=== PATIENT | female | born 1935 | race Caucasian/White ===

== ENCOUNTER → 2018-03-20 11:13 | Outpatient (CLI) | payer MEDICARE, SELFPAY | PROVIDERS: PCP Family Medicine; Visit Provider Internal Medicine Cardiovascular Disease | DX: I48.0 Paroxysmal atrial fibrillation (principal); I10 Essential (primary) hypertension; Z79.899 Other long term (current) drug therapy; Z79.01 Long term (current) use of anticoagulants; E11.9 Type 2 diabetes mellitus without complications | CPT/HCPCS: 99213 ==

== ENCOUNTER → 2018-03-20 12:05 | Outpatient (CLI) | payer MEDICARE, SELFPAY ==
[2018-03-20 13:19] LABS: Anion Gap 6.5 mmol/L (3-11); BUN 10 mg/dL (7-18); CO2 32.5 mmol/L (21.0-32.0); CREATININE 0.73 mg/dL (0.55-1.02); Calcium 8.5 mg/dL (8.5-10.1); Chloride 108 mmol/L (98-107); Glucose 90 mg/dL (70-100); Magnesium 1.7 mg/dL (1.8-2.4); Potassium 4.3 mmol/L (3.5-5.1); Sodium 147 mmol/L (136-145)
== END ==
PROVIDERS: PCP Family Medicine; Visit Provider Internal Medicine Cardiovascular Disease
DX: I48.91 Unspecified atrial fibrillation (principal)
CPT/HCPCS: 36415; 80048; 83735; 99213

== ENCOUNTER → 2018-03-27 10:30 | Outpatient (CLI) | payer MEDICARE, SELFPAY | PROVIDERS: PCP Family Medicine; Visit Provider Urology | DX: N39.46 Mixed incontinence (principal); E11.9 Type 2 diabetes mellitus without complications; I10 Essential (primary) hypertension | CPT/HCPCS: 99213 ==

== ENCOUNTER 2018-03-27 11:08 | Emergency (ER) | payer MEDICARE, SELFPAY ==
[2018-03-27 11:13] VITALS: BP 169/59; PULSE 58; RESP 16; TEMP 36.6; O2SAT 98
--- NOTE | 2018-03-27 11:29 | DI.REPORT_ITS ---
SYMPTOM/DIAGNOSIS: PAIN, SWELLING, TRAUMA LEFT TIBIA AND FIBULA: Comparison is made with ankle film dated 12 February 2017. There is an old healed distal fibular fracture. Degenerative changes are seen at the ankle joint as well as the knee joint. There is soft tissue swelling. There is no evidence of acute fracture or bony erosion. IMPRESSION: Soft tissue swelling. Degenerative changes and old distal fibular fracture.
--- NOTE | 2018-03-27 12:27 | ED.GENADUL_ITS ---
Disposition Clinical Impression: Contusion of left lower leg, Hematoma of left lower extremity Disposition: HOME Instructions: Contusion in Adults (ED), Hematoma (ED) Additional Instructions: Please follow-up with your primary care physician. Return to the emergency department immediately for any worsening or new concerning symptoms. Referrals: Anabelle Domingo MD [Primary Care Provider] - Medical Decision Making - Lab Data Laboratory Tests 03/27/18 11:47 PT 19.0 H INR 2.0 - Medical Decision Making [id number]-year-old female presents with injury to her left anterior lateral lower leg. Neurovascular intact. Compartments soft. No signs of compartment syndrome. Suspect contusion and hematoma. I considered supratherapeutic INR. INR within appropriate range. X-ray of the tib-fib interpreted by radiology: Old healed fracture, no acute fracture. Patient was advised to keep her leg elevated and stay off of her leg as much as possible while healing over the next 1 week. We reviewed signs and symptoms of compartment syndrome. I advised her to follow -up with her doctor and to return should she have any worsening or new concerning symptoms. History of Present Illness - General Chief complaint: Orthopedic Stated complaint: FALL INJURY Time Seen by Provider: 03/27/18 11:26 Source: patient, RN notes reviewed Mode of arrival: ambulatory Limitations: no limitations - History of Present Illness Initial comments: 82-year-old female here with left leg injury. Patient notes she bumped her leg yesterday and has had pain and swelling left mid ant lateral leg since injury. Pain is moderate, constant, worse on palpation. No assoc numbness, tingling or weakness. - Related Data Atorvastatin Calcium 20 mg PO DAILY tab-cap 02/24/15 Dofetilide [Tikosyn] 125 mcg PO BID 02/24/15 Gabapentin 100 mg PO TID 02/24/15 Glipizide [Glipizide Xl] 2.5 mg PO DAILY 02/24/15 Losartan [Cozaar] 100 mg PO DAILY tab-cap 02/24/15 Omeprazole 20 mg PO DAILY tab-cap 02/24/15 PredniSONE [Deltasone] 5 mg PO DAILY tab-cap 02/24/15 Warfarin Sodium 5 mg PO DAILY tab-cap 02/24/15 Potassium Chloride [Klor-Con 10] 20 meq PO BID #540 tab-cap 03/01/17 Terazosin [Hytrin] 4 mg PO DAILY #180 tab-cap 07/20/17 Magnesium Lactate-Sr [Mag-Tab Sr] 252 mg PO BID #180 tab-cap 11/16/17 Metoprolol [Lopressor] 50 mg PO BID 90 Days #360 tab-cap 03/20/18 Mirabegron [Myrbetriq] 50 mg PO DAILY #90 tab-cap 03/27/18 Allergies Allergy/AdvReac Type Severity Reaction Status Date / Time codeine Allergy Mild Unverified 03/27/18 11:24 Penicillins Allergy Unknown Unverified 03/27/18 11:24 DIVINE Inhibitors AdvReac Unknown Unverified 03/27/18 11:24 Review of Systems Musculoskeletal: as per HPI Neurological: denies: weakness, numbness, paresthesias Hematological/Lymphatic: easy bruising Past Medical History - Past Medical History Medical history: AFIB, CAD, GERD, hyperlipidemia, hypertension diverticulitis Surgical history: appendectomy, cholecystectomy - Social History Alcohol use: rarely Drug use: none General Exam - General Limitations: no limitations General appearance: alert, in no apparent distress - Cardiovascular Cardiovascular Exam: Present: regular rate, normal rhythm, other (1+ DP bilateral) - Extremities Exam Extremities exam: Present: other (LLE: swelling of mid ant lateral lower leg with bruising and localized tenderness, compartment soft, no significant pain on passive flex/ext at ankle, distal sensaiton and motor intact) - Neurological Exam Neurological exam: Present: alert. Absent: motor sensory deficit (distal LLE) - Skin Skin exam: Present: warm, dry, intact Course Vital Signs - 24 hr 03/27/18 11:13 Temperature 36.6 C Pulse 58 L Respiratory 16 Rate Blood Pressure 169/59 Pulse Oximetry 98
== END 2018-03-27 12:56 | disposition home or self-care (01) ==
PROVIDERS: Emergency Provider Student in an Organized Health Care Education/Training Program; PCP Family Medicine
DX: S80.12XA Contusion of left lower leg, initial encounter (principal); W22.8XXA Striking against or struck by other objects, initial encounter; E11.9 Type 2 diabetes mellitus without complications; Z79.84 Long term (current) use of oral hypoglycemic drugs; I10 Essential (primary) hypertension
CPT/HCPCS: 73590; 99284 ×2; 36415; 99213; 85610

== ENCOUNTER → 2018-04-06 15:21 | Outpatient (CLI) | payer MEDICARE, SELFPAY ==
[2018-04-06 16:42] LABS: Anion Gap 6.8 mmol/L (3-11); BUN 19 mg/dL (7-18); CO2 28.2 mmol/L (21.0-32.0); CREATININE 0.79 mg/dL (0.55-1.02); Calcium 8.7 mg/dL (8.5-10.1); Chloride 107 mmol/L (98-107); Glucose 138 mg/dL (70-100); Potassium 4.4 mmol/L (3.5-5.1); Sodium 142 mmol/L (136-145)
== END ==
PROVIDERS: PCP Family Medicine; Visit Provider Family Medicine
DX: E83.42 Hypomagnesemia (principal); Z51.81 Encounter for therapeutic drug level monitoring
CPT/HCPCS: 36415; 80048; 83735

== ENCOUNTER → 2018-04-07 10:11 | Outpatient (CLI) | payer MEDICARE, SELFPAY | PROVIDERS: PCP Family Medicine; Visit Provider Surgery | DX: S80.12XA Contusion of left lower leg, initial encounter (principal); X58.XXXA Exposure to other specified factors, initial encounter | CPT/HCPCS: 10140; 99213 ==

== ENCOUNTER → 2018-04-14 13:38 | Outpatient (BNVA) | payer MEDICARE, SELFPAY | PROVIDERS: PCP Family Medicine; Visit Provider Surgery | DX: S80.12XA Contusion of left lower leg, initial encounter (principal); W19.XXXA Unspecified fall, initial encounter | CPT/HCPCS: 99212 ==

== ENCOUNTER → 2018-05-22 13:19 | Outpatient (BNVA) | payer MEDICARE, SELFPAY | PROVIDERS: PCP Family Medicine; Referring Provider Family Medicine; Visit Provider Surgery | DX: S81.802D Unspecified open wound, left lower leg, subsequent encounter (principal); X58.XXXD Exposure to other specified factors, subsequent encounter | CPT/HCPCS: 99212; 99213 ==

== ENCOUNTER 2018-06-24 12:39 | Outpatient (REF) | payer MEDICARE, SELFPAY ==
[2018-06-24 13:19] LABS: Anion Gap 7.2 mmol/L (3-11); BUN 20 mg/dL (7-18); CO2 30.8 mmol/L (21.0-32.0); CREATININE 0.73 mg/dL (0.55-1.02); Calcium 8.6 mg/dL (8.5-10.1); Chloride 105 mmol/L (98-107); Glucose 82 mg/dL (70-100); Magnesium 1.9 mg/dL (1.8-2.4); Sodium 143 mmol/L (136-145)
[2018-06-24 13:31] LABS: Hemoglobin A1C 6.1 % (4.5-6.2)
== END 2018-06-24 12:59 ==
LOC: NCHCN 12:39
PROVIDERS: PCP Family Medicine; Visit Provider Family Medicine
DX: E83.42 Hypomagnesemia (principal); Z79.899 Other long term (current) drug therapy; E11.9 Type 2 diabetes mellitus without complications
CPT/HCPCS: 80048; 83036; 83735

== ENCOUNTER 2018-06-29 16:28 | Outpatient (REF) | payer MEDICARE, SELFPAY ==
[2018-06-29 19:59] LABS: COMMENT (LAB VIEW ONLY) 42.75 mg/dL; Microalb ug/mg Crea 13.6 ug/mg Cr
== END 2018-06-29 16:48 ==
LOC: NCHCN 16:28
PROVIDERS: PCP Family Medicine; Visit Provider Family Medicine
DX: E11.9 Type 2 diabetes mellitus without complications (principal)
CPT/HCPCS: 82043; 82570

== ENCOUNTER → 2018-10-15 09:06 | Outpatient (BNVA) | payer MEDICARE, SELFPAY | PROVIDERS: PCP Family Medicine; Visit Provider Internal Medicine Cardiovascular Disease | DX: R69 Illness, unspecified (principal) ==

== ENCOUNTER 2018-10-15 10:02 | Outpatient (CLI) | payer MEDICARE, SELFPAY ==
[2018-10-15 11:35] LABS: Anion Gap 7.8 mmol/L (3-11); BUN 18 mg/dL (7-18); CO2 31.2 mmol/L (21.0-32.0); CREATININE 0.81 mg/dL (0.55-1.02); Calcium 8.7 mg/dL (8.5-10.1); Chloride 106 mmol/L (98-107); Glucose 97 mg/dL (70-100); Magnesium 1.9 mg/dL (1.8-2.4); Potassium 4.2 mmol/L (3.5-5.1); Sodium 145 mmol/L (136-145)
== END 2018-10-15 10:22 ==
PROVIDERS: PCP Family Medicine; Visit Provider Internal Medicine Cardiovascular Disease
DX: I48.0 Paroxysmal atrial fibrillation (principal); Z79.01 Long term (current) use of anticoagulants; G31.84 Mild cognitive impairment of uncertain or unknown etiology; I10 Essential (primary) hypertension
CPT/HCPCS: 36415; 80048; 99214; 83735; 93005; 93010

== ENCOUNTER 2018-10-15 10:03 | Outpatient (CLI) | payer MEDICARE, SELFPAY | END 2018-10-15 10:23 | PROVIDERS: PCP Family Medicine; Visit Provider Internal Medicine Cardiovascular Disease | DX: R69 Illness, unspecified (principal) | CPT/HCPCS: 99214 ==

== ENCOUNTER 2019-01-12 01:07 | Outpatient (CLI) | payer MEDICARE, SELFPAY ==
--- NOTE | 2019-01-12 15:50 | DI.DEXA_ITS ---
SYMPTOM/DIAGNOSIS: SCREENING FOR OSTEOPOROSIS IN POSTMENOPAUSAL WOMAN, Z78.0 DEXA SCAN: Routine examination. Comparison is made with 2014. Evaluation of the lateral spine shows no compression deformities. Evaluation of the left hip shows a total T score of -1.9 and a Z score of 0.4. This is consistent with osteopenia and an increased fracture risk. This compares with a total T score of -0.6 from 2014. Evaluation of the lumbar spine shows a total T score of -0.3 and a Z score of 2.5. This is within normal limits. This compares to a total T score of 0.3 fro 2014. There is no evidence of osteoporosis. IMPRESSION: No evidence of osteoporosis.
== END 2019-01-12 01:27 ==
PROVIDERS: PCP Family Medicine; Visit Provider Family Medicine
DX: M85.88 Other specified disorders of bone density and structure, other site (principal); Z78.0 Asymptomatic menopausal state
CPT/HCPCS: 77080

== ENCOUNTER 2019-01-22 10:35 | Outpatient (CLI) | payer MEDICARE, SELFPAY ==
--- NOTE | 2019-01-22 10:24 | DI.RAD_ITS ---
SYMPTOM/DIAGNOSIS: RT HIP PAIN RIGHT HIP AND AP PELVIS: Comparison 01/10/17 There is marked narrowing of the right hip joint space. There is subchondral sclerosis present. There are osteophytes seen arising from the acetabulum and femoral head. Mild joint space narrowing and periarticular spurring is seen in the left hip. The bones appear intact and normally mineralized. The soft tissues are unremarkable. IMPRESSION: Marked osteoarthritis of the right hip.
--- NOTE | 2019-01-22 10:24 | DI.RAD_ITS ---
SYMPTOM/DIAGNOSIS: F/U LT ANKLE OA LEFT ANKLE: Three views. Comparison 02/12/17 There is an old healed distal left fibular fracture. There is marked narrowing of the lateral aspect of the ankle joint with flattening of the articular surfaces and subchondral sclerosis. No acute fracture, dislocation, lytic or sclerotic lesion is seen. Extensive vascular calcifications are seen in the soft tissues. There is soft tissue swelling about the ankle. The bones appear osteopenic. IMPRESSION: Moderate osteoarthritis of the left ankle.
== END 2019-01-22 10:55 ==
PROVIDERS: PCP Family Medicine; Referring Provider Family Medicine; Visit Provider Student in an Organized Health Care Education/Training Program
DX: M19.072 Primary osteoarthritis, left ankle and foot (principal); M16.11 Unilateral primary osteoarthritis, right hip; M25.551 Pain in right hip; E11.9 Type 2 diabetes mellitus without complications
CPT/HCPCS: 99214; 73502; 73610

== ENCOUNTER → 2019-02-04 07:56 | Outpatient (BNVA) | payer MEDICARE, SELFPAY | PROVIDERS: PCP Family Medicine; Referring Provider Family Medicine; Visit Provider Student in an Organized Health Care Education/Training Program | DX: R69 Illness, unspecified (principal) ==

== ENCOUNTER 2019-02-04 09:04 | Outpatient (CLI) | payer MEDICARE, SELFPAY ==
--- NOTE | 2019-02-05 09:44 | W.PROCNOTE ---
Date of service: 02/04/19 Time of Service: 09:44 Procedure Note Date of procedure: 02/04/19 Procedure: Right Hip Injection and left ankle injection with Fluoroscopic Guidance Surgeon/Proceduralist/Physician: Lee Cruz Procedure Diagnosis: Right Hip Osteoarthritis and left ankle arthritis Procedure Indications: Ratna has had persistent pain of the RIGHT hip and groin. She has known arthritis of the right hip. Noninvasive measures have been tried. To serve as both diagnostic and therapeutic, an injection under fluoroscopy was recommended. I had discussed the risks of the procedure and the patient elected to proceed. Additionally, she continues have difficulty with her left ankle. 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 She has had success with previous ankle injections. However, the ones performed in the office have been less successful than the one performed with fluoroscopy. Therefore, I offered a fluoroscopically guided ankle injection. I reviewed the risk of the procedure and she agreed to proceed. Procedure Description: Ratna was greeted in the flouroscopy room. The correct side was identified and the consent was reviewed with the patient and signed. The patient was then placed in the supine position on the fluoroscopy table. The RIGHT hip was then prepped with Chloraprep. The anterolateral injection starting point was identiifed by bony landmarks and fluoroscopy. The skin and soft tissue in the tract of the injection was anesthetized with 1% Lidocaine. A spinal needle was then inserted deep into the hip joint at the level of the lateral femoral neck under fluoroscopic guidance. A small amount of Omnipaque solution was injected to confirm intraarticular placement. Once confirmed, the hip was injected with 6cc of 0.5% Bupivicaine and 80mg of Depo-Medrol. A bandaid was placed on the injection site. While maintaining sterility with the injection equipment and, the left ankle was prepped with ChloraPrep. The medial soft spot, medial to the anterior tibialis tendon, was identified. This was also confirmed on the fluoroscopy unit. The skin and soft tissues were injected with 1% lidocaine. Using a 1/2 inch spinal needle I then inserted this into the ankle joint medial to the tibialis anterior tendon. This was confirmed to be in good location on the x-ray. A small amount of Omnipaque dye was injected which showed collection within the ankle joint itself. I then injected 2 cc of 0.5% bupivacaine and 40 mg of Depo-Medrol with little resistance. A Band-Aid was applied. She tolerated the procedure well.
== END 2019-02-04 09:24 ==
PROVIDERS: PCP Family Medicine; Visit Provider Student in an Organized Health Care Education/Training Program
DX: M19.172 Post-traumatic osteoarthritis, left ankle and foot (principal); M16.11 Unilateral primary osteoarthritis, right hip; M25.551 Pain in right hip; M25.572 Pain in left ankle and joints of left foot
CPT/HCPCS: 20605; 20610; 77002 ×2

== ENCOUNTER → 2019-03-29 09:58 | Outpatient (BNVA) | payer MEDICARE, SELFPAY | PROVIDERS: PCP Family Medicine; Visit Provider Nurse Practitioner Gerontology | DX: N39.46 Mixed incontinence (principal) | CPT/HCPCS: 99213 ==

== ENCOUNTER 2019-04-19 11:31 | Emergency (ER) | payer MEDICARE, SELFPAY ==
[2019-04-19 11:38] VITALS: BP 142/80; PULSE 72; RESP 16; TEMP 36.5; O2SAT 98
--- NOTE | 2019-04-19 12:24 | W.ED.GENAD ---
Discharge Plan Disposition Patient Disposition: HOME Condition: Stable Discharge Details Chief Complaint: Cellulitis Clinical Impression: Abrasion of lower extremity with infection Primary Care Provider: Anabelle Domingo ED Provider: Derek Rhoades Home Meds and New Rx's Prescriptions: New cephalexin 500 mg tablet 500 mg PO QID 5 Days Qty: 20 RF: 0 No Action aspirin [Adult Aspirin Regimen] 81 mg tablet,delayed release (DR/EC) 81 mg PO DAILY RF: 0 isosorbide mononitrate 60 mg tablet extended release 24 hr 60 mg PO DAILY RF: 0 furosemide 20 mg tablet 10 mg PO DAILY RF: 0 omeprazole 20 mg capsule,delayed release(DR/EC) 20 mg PO DAILY RF: 0 losartan 50 MG tablet 100 mg PO QAM RF: 0 dofetilide [Tikosyn] 125 MCG capsule 125 mcg PO BID RF: 0 glipizide 2.5 MG tablet extended release 24hr 2.5 mg PO QAM RF: 0 prednisone 2.5 MG tablet 5 mg PO QAM RF: 0 gabapentin 100 MG capsule 100 mg PO TID RF: 0 atorvastatin 10 MG tablet 20 mg PO QAM RF: 0 terazosin 2 MG capsule 4 mg PO DAILY Qty: 180 RF: 3 warfarin 2.5 mg tablet 5 mg PO DIRECTED RF: 0 Myrbetriq 50 mg tablet extended release 24 hr 50 mg PO DAILY Qty: 90 RF: 4 potassium chloride [Klor-Con 10] 10 mEq tablet extended release 20 meq PO BID Qty: 360 RF: 3 magnesium L-lactate [Magtab] 84 mg tablet extended release 252 mg PO BID Qty: 180 RF: 11 metoprolol tartrate 25 mg tablet 50 mg PO BID 90 Days Qty: 360 RF: 3 Discharge Instructions Instructions: Cellulitis (ED), Abrasion (ED) Additional Instructions: Please take your medication as prescribed and follow-up with your primary care provider for reassessment in 1 week. Return immediately to the emergency department for any new or significant worsening of symptoms or if you have any reaction to the prescribed antibiotic. While on the antibiotics it is recommended that you take a probiotic either chewable or pill, once daily 2 hours after your morning antibiotic dose. Referrals: Anabelle Domingo MD [Primary Care Provider] - 1 week Discharge Data Discharge Date/Time-TO BE ENTERED AT DEPARTURE: 04/19/19 12:59 Medical Decision Making Patient presenting to the emergency department for chief complaint of right lower extremity injury. Patient states approximately 2 weeks ago patient injured her right lateral lower leg on her walker. She had an abrasion there which stop bleeding but recently she has noticed a return of bleeding and increase in pain and discomfort but is actually keeping her up at night. Patient denies any fever chills, does state redness surrounding the wound, otherwise denies any other change in symptoms. Physical exam does show a 2 cm x 2 cm abrasion to the lateral aspect of the right lower extremity, there is surrounding erythema, no purulent drainage, some ecchymosis is noted otherwise pulses are intact with appropriate cap refill. Patient does have bilateral lower extremity 2+ pitting edema which she states is not uncommon for her. Patient denies any other symptoms. Patient does have penicillin allergy and given that wound is 2 weeks old with increase in pain discomfort and still with continued redness surrounding there is confirmed concern for slight infection. I feel this is very subtle but given that patient is diabetic I do feel that treating possible surrounding cellulitis is important. Given patient's allergies I did discuss with patient risk versus benefit of clindamycin versus Keflex and advantages and disadvantages of each. Son was also present for this conversation. Given patient's chronic diarrhea she was very concerned about possibility infectious diarrhea or side effects of clindamycin. Given that she was agreeable to using Keflex even with penicillin allergy and both her and her son state understanding to watch for any signs of allergic reaction and return immediately if these occur. Otherwise patient to follow-up with primary care provider for wound recheck in 1 week. After discussion of diagnosis and plan of care patient and son had no further needs, questions, or concerns and states clear understanding to return to the emergency department for any worsening symptoms. HPI General Mode of arrival: ambulatory. Date/Time Provider Initiated Documentation: 04/19/19 11:35. Limitations to Documentation: no limitations. Information obtained by: patient, family and RN notes reviewed. History of Present Illness 83 year old F presents to the emergency department with the chief complaint of Right leg wound, described as moderate, with intensity rated at 5. Quality is described as aching, and is localized to the right and lower extremity. Patient started experiencing this week(s) (2) Patient notes no other symptoms.. Patient did receive the following treatments prior to arrival, none Related Data Home Medications Medication Instructions Recorded Confirmed atorvastatin 20 mg PO QAM tab-cap 02/24/15 03/29/19 dofetilide [Tikosyn] 125 mcg PO BID 02/24/15 03/29/19 gabapentin 100 mg PO TID 02/24/15 03/29/19 glipizide 2.5 mg PO QAM 02/24/15 03/29/19 losartan 100 mg PO QAM tab-cap 02/24/15 03/29/19 prednisone 5 mg PO QAM tab-cap 02/24/15 03/29/19 terazosin 4 mg PO DAILY #180 tab-cap 07/20/17 03/29/19 furosemide 20 mg tablet 10 mg PO DAILY 05/22/18 03/29/19 omeprazole 20 mg capsule,delayed 20 mg PO DAILY 05/22/18 03/29/19 release warfarin 2.5 mg tablet 5 mg PO DIRECTED tab-cap 05/22/18 03/29/19 mirabegron 50 mg tablet,extended 50 mg PO DAILY #90 tab-cap 06/09/18 03/29/19 release 24 hr potassium chloride 10 mEq 20 meq PO BID #360 tab-cap 09/29/18 03/29/19 tablet,extended release magnesium L-lactate 84 mg 252 mg PO BID #180 tab-cap 12/16/18 03/29/19 tablet,extended release metoprolol tartrate 25 mg tablet 50 mg PO BID 90 Days #360 tab-cap 03/17/19 03/29/19 aspirin 81 mg tablet,delayed 81 mg PO DAILY 03/29/19 03/29/19 release isosorbide mononitrate 60 mg 60 mg PO DAILY 03/29/19 03/29/19 tablet,extended release 24 hr cephalexin 500 mg PO QID 5 Days #20 tab 04/19/19 Previous Rx's Medication Instructions Recorded terazosin 4 mg PO DAILY #180 tab-cap 07/20/17 mirabegron 50 mg tablet,extended 50 mg PO DAILY #90 tab-cap 06/09/18 release 24 hr potassium chloride 10 mEq 20 meq PO BID #360 tab-cap 09/29/18 tablet,extended release magnesium L-lactate 84 mg 252 mg PO BID #180 tab-cap 12/16/18 tablet,extended release metoprolol tartrate 25 mg tablet 50 mg PO BID 90 Days #360 tab-cap 03/17/19 cephalexin 500 mg PO QID 5 Days #20 tab 04/19/19 Allergies Allergy/AdvReac Type Severity Reaction Status Date / Time propranolol Allergy Intermediate Verified 03/29/19 10:06 codeine Allergy Mild Unverified 03/29/19 10:06 metformin Allergy Mild Verified 03/29/19 10:06 Penicillins Allergy Unknown Unverified 03/29/19 10:06 DIVINE Inhibitors AdvReac Unknown Unverified 03/29/19 10:06 General Stated Complaint: Cellulitis CAROLE: 4 Review of Systems Constitutional Denies body ache(s), Denies chills and Denies fever(s) Musculoskeletal Reports as per HPI, Denies numbness and Denies tingling Integumentary/Breasts Reports as per HPI, Reports non-healing lesions, Reports erythema and Reports skin pain Neurologic Denies numbness and Denies tingling [facility] Medical History Adenomatous colon polyp Allergic rhinitis Anticoagulated Atrial fibrillation Black stools Chronic diarrhea Chronic diarrhea (Acute) Cystocele with rectocele Deafness in left ear Diabetes mellitus Diverticulosis Esophageal stricture GERD (gastroesophageal reflux disease) H. pylori infection History of adenomatous polyp of colon (Acute) Hyperlipidemia Hypertension Lumbar back pain Meningioma Osteoarthritis (Chronic) Polymyalgia rheumatica Rectocele Right hip pain Skin cancer of nose Urinary incontinence Venous stasis Surgical History Appendectomy Cholecystectomy Colonoscopy - IV Sedation 2013- perforation Incision & Drainage, Abscess or Hematoma Social History Smoking/Tobacco Use Status: Never Alcohol Intake: current Drug use: Never Substance use type: does not use Do you feel safe at home: Yes Do you feel safe in your relationship?: Yes Exam Const General: cooperative and no acute distress Orientation: alert, awake and oriented x3 Resp Effort & Inspection: normal respiratory effort and able to speak in complete sentences Cardio Rate: regular rate Rhythm: regular rhythm Extrem General: pedal edema bilaterally (2+) Right lower extremity: lower leg Details: erythema Location: of the mid lower leg Location: laterally (With superficial abrasion that is approximately 2 cm x 2 cm), tenderness Location: other (Surrounding wound) and ecchymosis mid lower leg lateral Details: single; no deformity Course Vital Signs Temperature 36.5 C 04/19/19 11:38 Pulse 72 04/19/19 11:38 Respiratory Rate 16 04/19/19 11:38 Blood Pressure 142/80 H 04/19/19 11:38 Pulse Oximetry 98 04/19/19 11:38 Temperature 36.5 C 04/19/19 11:38 Temperature Source Tympanic 04/19/19 11:38 Pulse 72 04/19/19 11:38 Respiratory Rate 16 04/19/19 11:38 Respiratory Effort Non-Labored 04/19/19 11:38 Blood Pressure 142/80 H 04/19/19 11:38 Blood Pressure Position Sitting 04/19/19 11:38 Pulse Oximetry 98 04/19/19 11:38 Oxygen Delivery Method Room Air 04/19/19 11:38 Oxygen Flow Rate 0 04/19/19 11:38
--- NOTE | 2019-04-20 09:53 | NUR.NOTE ---
Referral faxed to [facility] Dr. Domingo.Nursing Note:
== END 2019-04-19 12:59 | disposition home or self-care (01) ==
LOC: ER 13:09
PROVIDERS: Emergency Provider Nurse Practitioner Family; PCP Family Medicine
DX: L03.115 Cellulitis of right lower limb (principal); S80.811A Abrasion, right lower leg, initial encounter; R60.0 Localized edema; W45.8XXA Other foreign body or object entering through skin, initial encounter; I10 Essential (primary) hypertension; E11.9 Type 2 diabetes mellitus without complications; Z79.01 Long term (current) use of anticoagulants
CPT/HCPCS: 99283

== ENCOUNTER 2019-04-26 16:16 | Outpatient (REF) | payer MEDICARE, SELFPAY | END 2019-04-26 16:36 | LOC: NCHCN 16:16 | PROVIDERS: PCP Family Medicine; Visit Provider Family Medicine | DX: L97.919 Non-pressure chronic ulcer of unspecified part of right lower leg with unspecified severity (principal) | CPT/HCPCS: 87077; 87070; 87186; 87205 ==

== ENCOUNTER → 2019-04-28 11:24 | Outpatient (BNVA) | payer MEDICARE, SELFPAY | PROVIDERS: PCP Family Medicine; Referring Provider Family Medicine; Visit Provider Surgery | DX: L97.919 Non-pressure chronic ulcer of unspecified part of right lower leg with unspecified severity (principal); E11.9 Type 2 diabetes mellitus without complications; Z79.84 Long term (current) use of oral hypoglycemic drugs; I10 Essential (primary) hypertension; Z79.01 Long term (current) use of anticoagulants | CPT/HCPCS: 97602; 99202; 99214 ==

== ENCOUNTER → 2019-04-30 14:18 | Outpatient (BNVA) | payer MEDICARE, SELFPAY | PROVIDERS: PCP Family Medicine; Referring Provider Family Medicine; Visit Provider Surgery | DX: L97.919 Non-pressure chronic ulcer of unspecified part of right lower leg with unspecified severity (principal); Z51.89 Encounter for other specified aftercare | CPT/HCPCS: 29580; 99212; 99213 ==

== ENCOUNTER → 2019-05-06 13:17 | Outpatient (BNVA) | payer MEDICARE, SELFPAY | PROVIDERS: PCP Family Medicine; Referring Provider Family Medicine; Visit Provider Physical Therapy Assistant | DX: L97.919 Non-pressure chronic ulcer of unspecified part of right lower leg with unspecified severity (principal); Z51.89 Encounter for other specified aftercare | CPT/HCPCS: 29580; 99213 ==

== ENCOUNTER 2019-05-10 00:48 | Outpatient (CLI) | payer MEDICARE, SELFPAY ==
--- NOTE | 2019-05-10 13:31 | DI.CT_ITS ---
EXAM: CT ABD AORTA CTA W RUNOFF CLINICAL HISTORY: non healing ulcer RLE +DM +afib. chronic steriods,. TECHNIQUE: The exam was carried out according to the usual protocol with IV contrast. COMPARISON: ABD PELVIS WITH CONTRAST from 03/22/2016 FINDINGS: There is patient motion artifact. There are small bilateral pleural effusions. The heart is enlarged. The liver, spleen, adrenal glands, and pancreas are unremarkable. The patient is status post cholecystectomy. There is no biliary ductal dilatation. The kidneys show normal and symmetric enhancement. No suspicious solid renal mass is present. There are bilateral simple renal cysts present. The urinary bladder is intact. The reproductive organs a re unremarkable as visualized. There is diverticulosis of the colon. There is no evidence of acute diverticulitis. The bowel shows no evidence of obstruction or inflammation. There is no evidence of an acute appendicitis. No significant abdominal or pelvic adenopathy, ascites, or pneumoperitoneum is present. There is atherosclerosis of the inferior aspect of the descending thoracic aorta. No aneurysmal dila tation is present. There is atherosclerosis of the abdominal aorta. No aneurysm or occlusion is present. The celiac axis is unremarkable. There is atherosclerosis seen at the origins of the superior mesenteric artery and renal arteries. N o significant stenosis or occlusion is present. There is atherosclerosis of the common iliac arteries. No significant stenosis or occlusion is prese nt. There is atherosclerosis of the internal iliac arteries. There is mild to moderate narrowing of the arteries bilaterally. The external iliac arteries show mild atherosclerosis. No significant stenosis or occlusion is prese nt. There is mild atherosclerosis of the proximal femoral arteries bilaterally. The popliteal arteries are unremarkable. The right anterior tibial artery is unremarkable. The left anterior tibial artery ends about the sina ction of the middle and distal thirds of the tibia. The left dorsalis pedis artery is reconstituted distally via the fibular artery. The posterior tibial arteries are unremarkable. The right fibula artery becomes attenuated and is not visualized inferior to the level of the right a nkle joint. The left fibula artery is unremarkable. 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
[2019-05-10 14:05] LABS: Anion Gap 6.3 mmol/L (3-11); BUN 19 mg/dL (7-18); CO2 29.7 mmol/L (21.0-32.0); CREATININE 0.85 mg/dL (0.55-1.02); Calcium 8.6 mg/dL (8.5-10.1); Chloride 108 mmol/L (98-107); Glucose 126 mg/dL (70-100); Potassium 4.1 mmol/L (3.5-5.1); Sodium 144 mmol/L (136-145)
[2019-05-10] MEDS: Omnipaque 350 MG/ML 100 ML BTL IJ (14:23)
[2019-05-10] MEDS: Omnipaque 350 MG/ML 50 ML BTL IJ (14:24)
== END 2019-05-10 01:08 ==
PROVIDERS: PCP Family Medicine; Visit Provider Surgery
DX: L97.919 Non-pressure chronic ulcer of unspecified part of right lower leg with unspecified severity (principal); E11.9 Type 2 diabetes mellitus without complications; I48.91 Unspecified atrial fibrillation; J90 Pleural effusion, not elsewhere classified; I51.7 Cardiomegaly; I70.238 Atherosclerosis of native arteries of right leg with ulceration of other part of lower leg; K57.30 Diverticulosis of large intestine without perforation or abscess without bleeding; Z79.52 Long term (current) use of systemic steroids; M16.11 Unilateral primary osteoarthritis, right hip
CPT/HCPCS: 75635; 80048; 99213; J3490; Q9967

== ENCOUNTER → 2019-05-13 12:54 | Outpatient (BNVA) | payer MEDICARE, SELFPAY | PROVIDERS: PCP Family Medicine; Referring Provider Family Medicine; Visit Provider Physical Therapy Assistant | DX: L97.919 Non-pressure chronic ulcer of unspecified part of right lower leg with unspecified severity (principal); Z51.89 Encounter for other specified aftercare | CPT/HCPCS: 29580; 99212 ==

== ENCOUNTER 2019-05-17 15:52 | Outpatient (REF) | payer MEDICARE, SELFPAY ==
[2019-05-17 19:21] LABS: COMMENT (LAB VIEW ONLY) 104.83 mg/dL; Microalb ug/mg Crea 15.5 ug/mg Cr
== END 2019-05-17 16:12 ==
LOC: NCHCO 15:52
PROVIDERS: PCP Family Medicine; Visit Provider Family Medicine
DX: E11.9 Type 2 diabetes mellitus without complications (principal)
CPT/HCPCS: 82043; 82570

== ENCOUNTER 2019-05-20 00:37 | Outpatient (CLI) | payer MEDICARE, SELFPAY ==
--- NOTE | 2019-05-20 11:50 | DI.MAMMO_ITS ---
EXAM: MAMMO SCREENING CLINICAL HISTORY: SCREENING Z12.31. TECHNIQUE: Mammograms were interpreted according to the usual protocol including computer analysis w [employer] CAD system, tomosynthesis and C-view imaging. COMPARISON: Current examination is compared with previous examinations including November 2017 FINDINGS: Breasts are heterogeneously dense with fairly symmetrical distribution of fibroglandular tissue. No d ominant mass or clumped microcalcification is identified in either breast. Current examination is com pared with previous examinations including November 2017 and there has been no gross interval change in appearance in comparison with previous studies. IMPRESSION: No specific evidence of malignancy at this time. Routine screening examinations are suggested at year ly intervals due to the family history of breast carcinoma. Category 1, breast density category C. BI-RADS Cat 1 - Negative Breast Density - Category C - Heterogeneously dense
== END 2019-05-20 00:57 ==
PROVIDERS: PCP Family Medicine; Visit Provider Family Medicine
DX: Z12.31 Encounter for screening mammogram for malignant neoplasm of breast (principal); Z80.3 Family history of malignant neoplasm of breast; L97.919 Non-pressure chronic ulcer of unspecified part of right lower leg with unspecified severity; Z51.89 Encounter for other specified aftercare
CPT/HCPCS: 29580; 77063; 77067; 99213

== ENCOUNTER → 2019-05-27 10:51 | Outpatient (BNVA) | payer MEDICARE, SELFPAY | PROVIDERS: PCP Family Medicine; Referring Provider Family Medicine; Visit Provider Physical Therapy Assistant | DX: L97.919 Non-pressure chronic ulcer of unspecified part of right lower leg with unspecified severity (principal); Z51.89 Encounter for other specified aftercare | CPT/HCPCS: 29580; 99211; 99212 ==

== ENCOUNTER → 2019-05-31 10:24 | Outpatient (BNVA) | payer MEDICARE, SELFPAY | PROVIDERS: PCP Family Medicine; Referring Provider Family Medicine; Visit Provider Nurse Practitioner Gerontology | DX: N39.46 Mixed incontinence (principal) | CPT/HCPCS: 99213 ==

== ENCOUNTER → 2019-06-04 11:26 | Outpatient (BNVA) | payer MEDICARE, SELFPAY | PROVIDERS: PCP Family Medicine; Referring Provider Family Medicine; Visit Provider Surgery | DX: L97.919 Non-pressure chronic ulcer of unspecified part of right lower leg with unspecified severity (principal); Z51.89 Encounter for other specified aftercare | CPT/HCPCS: 99212 ==

== ENCOUNTER → 2019-08-02 10:39 | Outpatient (BNVA) | payer MEDICARE, SELFPAY | PROVIDERS: PCP Family Medicine; Referring Provider Family Medicine; Visit Provider Student in an Organized Health Care Education/Training Program | DX: E11.9 Type 2 diabetes mellitus without complications (principal); I10 Essential (primary) hypertension; M16.11 Unilateral primary osteoarthritis, right hip; Z79.01 Long term (current) use of anticoagulants; I48.91 Unspecified atrial fibrillation | CPT/HCPCS: 99213 ==

== ENCOUNTER 2019-09-09 10:55 | Outpatient (CLI) | payer MEDICARE, SELFPAY ==
[2019-09-09 11:17] LABS: HCT 41.8 % (36.0-46.0); HGB 13.6 g/dL (12.0-15.5); Mean Corp. HGB Concentration 32.5 g/dL (32.0-36.0); Mean Corpuscular Hemoglobin 30.8 pg (27.0-33.0); Mean Corpuscular Volume 94.6 fL (80-95); Mean Platelet Volume 9.8 fL (8.0-11.0); Platelet Count 294 x1000/uL (130-400); RBC 4.42 m/cumm (4.00-5.20); RBC Distribution Width 12.9 % (11.7-14.6); White Blood Cell Count 9.43 k/cumm (4.4-10.8)
[2019-09-09 12:29] LABS: Anion Gap 10.2 mmol/L (3-11); BUN 16 mg/dL (7-18); CO2 26.8 mmol/L (21.0-32.0); CREATININE 0.76 mg/dL (0.55-1.02); Calcium 8.5 mg/dL (8.5-10.1); Chloride 107 mmol/L (98-107); Glucose 92 mg/dL (74-106); Potassium 4.2 mmol/L (3.5-5.1); Sodium 144 mmol/L (136-145)
== END 2019-09-09 11:15 ==
PROVIDERS: PCP Family Medicine; Visit Provider Student in an Organized Health Care Education/Training Program
DX: M25.551 Pain in right hip (principal); M16.11 Unilateral primary osteoarthritis, right hip; I25.10 Atherosclerotic heart disease of native coronary artery without angina pectoris; I48.91 Unspecified atrial fibrillation; E11.9 Type 2 diabetes mellitus without complications; K21.9 Gastro-esophageal reflux disease without esophagitis; Z01.818 Encounter for other preprocedural examination; Z01.812 Encounter for preprocedural laboratory examination
CPT/HCPCS: 36415; 80048; 85027; 86850; 86900; 86901

== ENCOUNTER 2019-09-15 05:50 | Inpatient (IN) | payer MEDICARE, SELFPAY ==
--- NOTE | 2019-09-09 16:16 | PDOC.CMPRO ---
- If Service Date Differs Date of service: 09/09/19 Time of Service: 16:17 Care Management Progress Note CM was consulted to meet with Ratna during her pre op visit for her scheduled R Hip replacement by Dr. Cruz on 09/15/2019. Ratna's son, Alex was in the room with her. Ratna lives at the [facility] on the second floor (there is an elevator). She lives alone, but her son lives nearby with his s/o Rebekah, who are both very supportive. She also has a daughter, Alexandra, who is supportive but lives in [place]. Ratna engages in several activities at the [facility], such as coffee hours, community dinners, and having many visitors. Alex and Rebekah will transport her to and from [facility]. Ratna has MCR. She has a 4WW, but may need a FWW post surgically, per PT. CM advised that the FWW cannot be filled here at [facility] through [facility], but CM will coordinate through [facility] if she doesn't have one upon admission. Ratna is not certain that she has an AD filled out, but she wants to ask her daughter, Alexandra for clarification. CM will supply a blank copy upon admission, if requested. She reported that she is interested in the Portal, but does not want to sign up at this time. CM will continue to follow post surgically.
[2019-09-15] VITALS (14 sets, daily range): BP systolic 120–193; BP diastolic 54–96; PULSE 61–93; RESP 12–18; TEMP 36.1–37.1; O2SAT 94–98
[2019-09-15] MEDS: Celecoxib 200 MG CAP 400 MG PO (06:56)
[2019-09-15] MEDS: Acetaminophen 500 MG TAB 1000 MG PO ×3 (06:56→19:30)
[2019-09-15] MEDS: Lactated Ringers 1,000 ML 80 ML IV ×2 (07:20→20:58)
[2019-09-15 07:32] LABS: INR 1.3 (0.9-1.1); Prothrombin Time 12.9 sec (9.3-11.0)
[2019-09-15] MEDS: ceFAZolin 2 GM/50 ML BAG IVPB (08:15)
--- NOTE | 2019-09-15 08:17 | NUR.NOTE ---
Nursing Note: Pt arrived and forgot yellow paper for lab. Pt. reports she is having diarrhea this AM. Nursing helped pt. changed and provided underwear and pad to help with leaking stool. Rebekah,son's girlfriend, ride for pt. went back to pt's house to retrieve the paper. Pt. unsure of her allergies and home medications. Nursing waited for Rebekah to return with med list. Nursing spoke to Elisa Powell CRNA, regarding need for PT/INR and cortisol labs, [employer] told nursing to order labs. Rebekah unsure of pt's meds, called son and handed phone to nurse to discuss home meds. Son states pt.took her last coumadin on 09/10/19. Nursing told son that pt. reports she took no morning meds today but paper from pre-op visit had the pt. taking medications this morning. Son stated, if pt states she did not take them, then the last time she took anything was yesterday. Nursing documented as such on summary. Dr. Cruz in to see ptMD aware of diarrhea, states coritsol not necessary but PT/INR is needed. Lab in to draw Pt/INR.
[2019-09-15] MEDS: Ketorolac 30 MG/ML VIAL (08:49)
[2019-09-15] MEDS: Bupivacaine 0.25% Pres-Free 30 ML VIAL (08:50)
--- NOTE | 2019-09-15 09:07 | DI.RAD_ITS ---
EXAM: XR HIP RT IN OR CLINICAL HISTORY: Right Total hip replacement. TECHNIQUE: 2D digital imaging was performed. COMPARISON: XR hip RT complete AP pelvis from 01/22/2019 FINDINGS: Fluoroscopy was utilized by Dr. Cruz during the placement of a right total hip replacement. The orthopedic hardware appears to be in good position. Please refer to the procedure report for complet e details. FLUORO TIME: 34.1 seconds
[2019-09-15] MEDS: Lactated Ringers 1,000 ML 30 ML IV (10:32)
--- NOTE | 2019-09-15 14:01 | NUR.NOTE ---
Nursing Note: Patient transferred from PACU to floor around 1115. Patient A&O x 3. HR regular, lungs clear, hypoactive bowel sounds. VSS. See worklist. Patient reports being able to see own surgery. Patient received spinal and reports normal sensation in bilateral lower extremities. Patient denies pain and is able to wiggles toes. Positive pedal and radial pulses. Dressing to right hip clean dry and intact. Ice to site noted.
--- NOTE | 2019-09-15 14:18 | PT.INIE ---
Date of service: 09/15/19 Time of Service: 12:53 PT Notes Physical Therapy Inpatient Initial Evaluation Date: 09/15/2019 Referring Doctor: Lee Cruz M.D. PT Orders: PT CONSULT: s/p ortho surgery. s/p R Anterior DEJON Precautions: Fall. Standard. Activity as tolerated. Patient Profile/Admitting Diagnosis: Pt is an 84-year-old female with a history of severe right hip arthritis, presenting with status post a right anterior approach total hip arthroplasty on post-operative day 0. PMHX: Medical History Adenomatous colon polyp Allergic rhinitis Anticoagulated Atrial fibrillation Black stools Chronic diarrhea Chronic diarrhea (Acute) Cystocele with rectocele Deafness in left ear Diabetes mellitus Diverticulosis Esophageal stricture GERD (gastroesophageal reflux disease) H. pylori infection History of adenomatous polyp of colon (Acute) Hyperlipidemia Hypertension Lumbar back pain Meningioma Osteoarthritis (Chronic) Polymyalgia rheumatica Rectocele Right hip pain Skin cancer of nose Traumatic wound (Acute) Ulcer of right leg (Acute) 04/26/19 referral from [facility]abel[facility] Domingo - injured on sharp piece of wheelchair 3-4 weeks ago. Seen in ER, antibx not finished due to diarrhea. Not healing. Urinary incontinence Venous stasis Surgical History Appendectomy Cholecystectomy Colonoscopy - IV Sedation 2013- perforation Incision & Drainage, Abscess or Hematoma Social History/Home Situation: Pt lives alone with her cat at [facility]. Notes there are stairs and ramp to enter, but most often uses the ramp with her walker. Equipment Owned/DME: four-wheeled walker Subjective: Pt reports that she is not experiencing any pain, but it is tender along the surgical area. She notes that she has friends that bring her to the grocery store or appointments that she needs to go. Prior to surgery she walked with a four-wheeled walker. Says that she was only able to walk around the store for a short period of time before her hip would begin to bother her. Objective: General Observation: Mepilex dressing over incision. Thromboembolic pumps on bilateral LEs. Dela Cruz catheter in place. IV line in R UE. Mental Status: alert and oriented x 4 Pain: 0/10 ROM: Right Upper Extremity: Shoulder Flexion WFL. Shoulder abduction WFL. Elbow flexion WFL. Wrist flexion WFL. Opening and closing of hand WFL. Left Upper Extremity: Shoulder Flexion WFL. Shoulder abduction WFL. Elbow flexion WFL. Wrist flexion WFL. Opening and closing of hand WFL. Right Lower Extremity: Hip flexion 85 degrees. Hip abduction WFL. Knee flexion WFL. Ankle dorsiflexion WFL. Ankle plantarflexion WFL. Left Lower Extremity: Hip flexion WFL. Hip abduction WFL. Knee flexion WFL. Ankle dorsiflexion WFL. Ankle plantarflexion WFL. Strength: Right Upper Extremity: Shoulder flexors 5/5. Shoulder abductors 5/5. Elbow flexors 5/5. Elbow extensors 5/5. Poultry Killer strong. Left Upper Extremity: Shoulder flexors 5/5. Shoulder abductors 5/5. Elbow flexors 5/5. Elbow extensors 5/5. Poultry Killer strong. Right Lower Extremity: Hip flexors 3-/5. Hip abductors 4/5. Knee flexors 3-/5. Knee extensors 4+/5. Ankle dorsiflexors 5/5. Ankle plantarflexors 5/5. Left Lower Extremity: Hip flexors 4/5 (discomfort in right hip). Hip abductors 5/5. Knee flexors 5/5. Knee extensors 5/5. Ankle dorsiflexors 5/5. Ankle plantarflexors 5/5. Sensation: Intact as to pain and pressure on bilateral lower extremities. Bed Mobility/Transfers: Rolling SBA Supine to sit Min A to LE Sit to supine Min A to LE Sit to stand CGA Stand to sit CGA Bed to chair CGA Chair to bed CGA Gait: Pt was able to ambulate 30 feet + 120 feet + 30 feet, WBAT on the right LE, using a front-wheeled walker. Step through gait pattern with asymmetrical step length and height. No complaints of increased pain in her right hip, however, did not that her left knee was bothering her. CGA provided by the PT student with wheelchair follow by PT. No complaints of SOB or dizziness. Balance: Static Sitting: Normal Dynamic Sitting: Normal Static Standing: Good Dynamic Standing: Fair Special Tests: Mobility Limitations Standardized Measure [facility] 6 clicks Basic Mobility Inpatient Short Form: Raw Score: 22 CMS Score: 21% deficit Informed Consent/Education: Patient instructed in purpose of PT consult and plan of care. Pt was instructed in home exercises to perform every hour while in the hospital including glute sets x10, quad sets x10, and ankle pumps x20. Assessment: Pt is an 84-year-old female with a history of severe right hip arthritis, presenting status post a right anterior approach total hip arthroplasty on post-operative day zero. She presents with impairment level findings and functional limitations as listed below. AM-PAC raw score of 22 with 21% deficit. Pt would continue to benefit from skilled physical therapy at this time. Patient presents with clinical signs and symptoms consistent with current/admitting diagnoses that have resulted to mobility limitations, gait instability, and generalized weakness as demonstrated by the following impairment level findings: 1. Decreased strength to R hip major muscle groups 2. Impaired standing balance 3. Impaired activity tolerance 4. Limitation of joint range of motion in R hip Impairments are contributing to the following functional limitations: 1. Dependent bed mobility skills 2. Increased dependence with transfers 3. Inability to safely ambulate without assistive device and physical assistance 4. Increase completion time for mobility ADL performance 5. Increased fall risk 6. Inability to negotiate steps alone safely Patient is assessed as a [id number] moderate complexity based on the following: History: Pt is an 84-year-old female with a history of severe right hip arthritis, presenting status post a right anterior approach total hip arthroplasty on post-operative day zero. She presents with impairment level findings and functional limitations as listed above. AM-PAC raw score of 22 with 21% deficit. Examination: Demonstrable impairment in strength, balance, and range of motion with underlying impairments and functional limitations as documented above Presentation: Evolving Decision Makin moderate complexity Goals: Goals X1 week 1. Supine-Sit independent 2. Sit-Supine independent 3. Sit-Stand independent 4. Stand-Sit independent 5. Bed-Chair independent 6. Chair-Bed independent 7. Independent gait on level surface with use of least restrictive device for at least 300 feet without report of pain nor dyspnea 8. Independent stair negotiation while holding onto bilateral rails for at least 5 steps without report of pain nor dyspnea 9. Independent with home exercise program 10. Good dynamic standing balance/tolerance Plan of Care/Treatment Plan: 1-2x/day, 7 days/week x 1 week. Plan of care has been reviewed with the PRINTED CIRCUIT BOARD PCB DESIGNER providing the service under Physical Therapy direction. Initiate Physical Therapy intervention for strengthening, bed mobility, transfers, gait, stairs, balance training, use of assistive device. DISCHARGE RECOMMENDATIONS: Discharge to home when medically cleared. Recommend a front-wheeled walker for ambulation. TREATMENT CODE/TIME: 07932 x 21 minutes beginning at 12:53 P.M. Thank you very much for this referral. Blayne Carranza, SPT Doctor of Physical Therapy Student [facility] Supervision provided by Marie Sorensen PT, DPT, CLT [facility] [place], [place]
[2019-09-15] MEDS: Gabapentin 100 MG CAP PO ×2 (14:37→19:30)
--- NOTE | 2019-09-15 14:46 | W.NUTCONSULT ---
Date of service: 09/15/19 Time of Service: 14:46 Nutritional Consult ASSESSMENT: 84 year old female admitted with right hip DJD. BMI wnl. Following diabetic diet with adequate intake. Not considered at nutritional risk at this time. MONITORING AND EVALUATION: po intake, weight, labs Time Spent in Nutritional Counseling and Treatment: 0 time spent face to face
[2019-09-15] MEDS: Hydrocortisone SOD SUC. 100 MG VIAL 25 MG IVP ×2 (16:28→23:48)
[2019-09-15] MEDS: Normal Saline Flush 10 ML SYR IV ×2 (16:29→23:57)
[2019-09-15] MEDS: ceFAZolin 1 GM/50 ML BAG IVPB ×2 (16:29→23:48)
[2019-09-15] MEDS: oxyCODONE 5 MG TAB PO ×2 (18:01→23:55)
[2019-09-15] MEDS: Terazosin 2 MG CAP PO (19:30)
[2019-09-15] MEDS: Celecoxib 100 MG CAP PO (19:30)
[2019-09-15] MEDS: Atorvastatin 10 MG TAB 20 MG PO (19:30)
[2019-09-15] MEDS: Omeprazole 20 MG CAPCR PO (21:02)
--- NOTE | 2019-09-16 05:49 | W.PM.OP ---
Date of service: 09/15/19 Time of Service: 10:50 Operative Note Operative Note DATE OF PROCEDURE: 09/15/19 PRE-OP DIAGNOSIS: Right Hip Osteoarthritis POST-OP DIAGNOSIS: same PROCEDURE: Right Anterior Total Hip Arthroplasty SURGEON: Lee Cruz CYLINDER DEVALVER: Jesica Rosario ANESTHESIA: spinal ESTIMATED BLOOD LOSS: 450 PATHOLOGY: none sent TOURNIQUET TIME: 0 COMPLICATIONS: None Patient was transported to: PACU Patient's condition: stable Implants: 1. Depuy [place] Acetabular Component, 52 mm 2. Depuy Acetabular Liner, 52 x 36 mm 3. Depuy Corail [Standard Collared] Femoral Stem, Size 12 4. Depuy [Altrx Ceramic Femoral Head], Size 36+5 mm Indications: I have seen Ratna in clinic for symptoms of hip arthritis, confirmed with radiographic findings. She has exhausted nonoperative methods and was having significant limitations in daily function and desired better function and less pain. I discussed the technical details of a hip replacement. I explained the risks of the procedure to include, but not limited to, bleeding, infection, pain, stiffness, fracture, damage to nerves and vessels, damage to muscles and tendons, loosening, instability, leg length inequality, need for repeat procedure, blood clot and cardiopulmonary demise. Despite these risks, Ratna elected to proceed. Findings: There was significant signs of arthritis throughout the hip. There are large lateral neck osteophytes and deformity of the femoral head. There also was large floor osteophytes with loose bodies. Procedure Description: Ratna was greeted in the preoperative holding area where the correct side was identified and marked. The consent was reviewed with the patient and signed. The history and physical was updated. All questions were answered. Ratna was taken back to the operating room. A spinal anesthestic was then administered. The patient was placed into the supine position on the operating room table. The patient was then positioned onto the ARCH table. Both feet were wrapped with Webrill cotton wrap along with Coban. The feet were placed in specialized boots for the ARCH table, well seated within the boot and secured. SCDs were applied. The patient was then slid down onto a peroneal post and the nonoperative leg was secured in a leg nicholson attached to the table. The operative side was placed into the ARCH table attachment and bed height and positioning was secured. A preoperative AP pelvis was obtained to serve as a reference for determining leg lengths. Prophylactic antibiotics in the form of cefazolin were administered. 1g of Tranxemic Acid was given intravenously within 30 minutes of incision. The right leg was then prepped with Chloraprep and draped in a standard fashion. A second prep with Chloraprep was performed prior to placement of a shower-curtain type drape with Iodine impregnated skin protection. A timeout to confirm correct identity, side and site, procedure, allergies, anesthesia, and medical concerns was performed. An obliquely oriented incision was made starting lateral to the ASIS and running distal over the Tensor Fascia Fifi (TFL) muscle belly toward the fibular head, approximately 10cm. The skin and soft tissue was dissected sharply, through Daniel?s fascia, and to the fascia of the TFL. With the fascia and superior border of the IT band identified, the fascia was incised with a new knife just above any perforators from the IT band. The TFL muscle belly was bluntly dissected away from the fascia and moved laterally. The fat between TFL and rectus was identified to ensure the dissection was not within the TFL. Blunt dissection created space between abductors and the capsule and retractor was placed over the lateral femoral neck. The fibers of the rectus femoris tendon were identified and these were freed from the anterior capsule. A second cobra retractor was placed around the medial femoral neck. The TFL was further retracted laterally to show the deep fascia. Careful dissection through this layer identified three main crossing vessels of the lateral femoral circumflex. These were cauterized in multiple locations and then cut without any noticeable bleeding. The TFL was further released bluntly from the deep fascia to expose anterior hip capsule and fat the Aidan orthopaedic retractor was then placed beneath the TFL and against sartorius and medial soft tissues to protect and retract the soft tissues. A T-capsulotomy was then performed starting at the superior lateral acetabulum and moving distally to the intertrochanteric ridge. These capsular flaps were tagged with a No. 1 Ethibond and elevated from within. The capsular flaps were released to the shoulder of the lateral neck and to the lesser trochanter to give excellent visualization of the proximal femur. A neck osteotomy was performed using an oscillating saw based on preoperative templates. This cut started in the shoulder and of the lateral neck and exited medially. The saw was at all times directed medially to avoid injury to the greater trochanter. 6cm of traction was applied to the leg and the osteotomy opened. The femoral head was removed with a corkscrew, making sure to protect the TFL on its exit. This was measured on the back table to determing the starting reamer size. Portions of the rectus obscuring visualization were minimally elevated off the superior acetabulum. An anterior retractor was placed over the anterior wall between capsule and labrum and attached to the Gripper retraction system. A posterior retractor was placed similarly. This provided excellent visualization. The contents of the cotyloid fossa were removed with electrocautery and the labrum was removed with a knife. There was a notable floor osteophyte. There was significant chondromalacia of the superior acetabulum. Acetabular reaming began with a 48mm reamer. This first reaming was directed anterior to posterior and medial to get down to the true floor. This was inspected and reamed until the true floor was reached. I then reamed sequentially up to a 52mm reamer where good fit was obtained. The larger reamers were oriented based on anatomical reference of the anterior and lateral redmond to ensure proper abduction and anteversion. Positioning and size was confirmed with the fluoroscopy. A 52mm Depuy [place] acetabular component was selected. The deep tissues were irrigated. The acetabular component was then impacted in a position of about 40-45 degrees of abduction and 15-20 degrees of anteversion, using the patient?s anatomy as the ultimate landmark. Fluoroscopy was used to confirm this. There was excellent project portfolio analyst of the acetabular component and the inserting handle was removed. A primary acetabular screw was placed into the ilium by drilling through one of the holes in the acetabular component. This was measured and an approrpriately sized screw was placed with excellent purchase. It was checked not to be proud. A second screw was placed in a similar fashion. The acetabular liner, Depuy 52 x 36 mm polyethylene liner, was inserted and lined up with the tines of the acetabular component. There was no soft tissue interposition. The liner was then impacted into position and confirmed to be well-seated. A portion of the delfina-articular cocktail was then injected around the acetabulum into the capsule and periosteum. This cocktail consisted of 50cc of 0.25% Bupivicaine and 20cc of Exparel, expanded to a total of 120cc. Traction was released from the femur. The leg was rotated to 120 degrees. Any remaining medial capsule was released until the lesser trochanter was easily palpable. A Hoang retractor was placed medially. The lateral capsule was further released into the shoulder to allow access to the greater trochanter. A Honag retractor was placed over the greater trochanter which allowed the trochanter to flip in front of the capsule for excellent exposure. The leg was brought down into maximal extension and 20 degrees of adduction while ensuring there was no impingement on the acetabulum. Any remnant capsule within the trochanter was released. Piriformis and obturator externis were identified and protected. There was excellent access to the proximal femur. The lateral neck remnant was removed with a rongeur. A blunt canal probe was used to identify the canal and trajectory for later broaching. A box osteotome initiated the broach course. A small curved rasp and a curved curette were used to work laterally. Broaching then began with a size 8 Corail broach. This was inserted manually around the trochanter and into the canal before mallet blows. The broach was seated to a few millimeters below the cut level based on the neck cut and the preoperative template. Sequential broaching was continued with the Kimblese pneumatic impactor until a tight fit was obtained with good rotational control of the femur. A trial standard neck was inserted along with a +5 trial head. The leg was brought out of extension and adduction and then reduced with traction and internal rotation. The leg was stable anteriorly in a position of 30 degrees of extension and 90 degrees of external rotation. Fluoroscopy was used to ensure there was no fracture and the stem was seated well. Leg lengths were checked with an AP pelvis and pelvic reference points as well as the joint point intraoperative measurement system. Once content with the desired offset and leg lengths, the leg was brought back into extension, external rotation and adduction. The periosteum and surrounding tissue was injected with remaining portion of the delfina-articular cocktail. The proximal femur was irrigated as well as the deep tissues. The Depuy Corail standard collared stem, size 12, was then manually inserted into the proximal femur making sure to control rotation. It was then malleted into position with light blows, giving breaks to allow bone expansion and decrease risk of fracture. The selected Depuy Altrx Ceramic Head, size 36+5 mm, was then placed onto the clean and dry trunnion and secured with impaction onto the tapered fit. The leg was brought back out of extension and adduction and reduced with traction and internal rotation. Stability was confirmed with no shuck at 90 degrees of external rotation and 30 degrees of extension. No impingement through range of motion arc. Final x-ray images were obtained with fluoroscopy to confirm adequate positioning and no intraoperative fracture. The deep tissues were thoroughly irrigated with Irrisept chlorexadine solution. The second dose of TXA 1g was administered intravenously. The capsule was then reapproximated with the previously placed Ethibond sutures. The TFL fascia was finally closed with a No. 2 Stratafix, barbed suture. Deep tissues were then reapproximated with 0 Vicryl and a running 2-0 Vicryl. The skin was closed with a running 4-0 Monocryl in a subcuticular fashion. This was reinforced with skin glue. A Mepilex silver dressing was applied. At the end of the case, all counts were correct. Ratna was transferred to the hospital bed without difficulty and suffering no apparent complication. Ratna has a good prognosis. Physical therapy will start today and without restrictions, weight-bearing as tolerated. Her regular dose of Coumadin will be used for DVT prophylaxis.
[2019-09-16] MEDS: Normal Saline 250 ML 500 ML IV (06:29)
[2019-09-16 07:06] LABS: HCT 32.2 % (36.0-46.0); HGB 10.3 g/dL (12.0-15.5); Mean Corpuscular Hemoglobin 30.1 pg (27.0-33.0); Mean Corpuscular Volume 94.2 fL (80-95); Mean Platelet Volume 9.9 fL (8.0-11.0); Platelet Count 229 x1000/uL (130-400); RBC 3.42 m/cumm (4.00-5.20); RBC Distribution Width 12.6 % (11.7-14.6); White Blood Cell Count 8.84 k/cumm (4.4-10.8)
[2019-09-16 07:23] LABS: BUN 19 mg/dL (7-18); CREATININE 0.73 mg/dL (0.55-1.02); Calcium 7.7 mg/dL (8.5-10.1); Chloride 108 mmol/L (98-107); Glucose 127 mg/dL (74-106); Potassium 4.2 mmol/L (3.5-5.1); Sodium 142 mmol/L (136-145)
[2019-09-16 07:34] LABS: INR 1.3 (0.9-1.1); Prothrombin Time 12.7 sec (9.3-11.0)
[2019-09-16 08:08] VITALS: BP 114/71; PULSE 89; RESP 16; TEMP 36.2; O2SAT 94
[2019-09-16] MEDS: ceFAZolin 1 GM/50 ML BAG IVPB (08:28)
[2019-09-16] MEDS: Ondansetron 4 MG/2 ML VIAL IVP (08:29)
[2019-09-16] MEDS: Hydrocortisone SOD SUC. 100 MG VIAL 25 MG IVP ×2 (08:29→16:13)
[2019-09-16] MEDS: Potassium Chloride 20 MEQ TABCR PO ×2 (09:01→20:24)
[2019-09-16] MEDS: Magnesium Lactate-SR 84 MG TABCR 252 MG PO ×2 (09:02→20:25)
[2019-09-16] MEDS: Losartan 50 MG TAB 100 MG PO (09:03)
[2019-09-16] MEDS: Celecoxib 100 MG CAP PO ×2 (09:03→20:24)
[2019-09-16] MEDS: Mirabegron 50 MG TABCR PO (09:03)
[2019-09-16] MEDS: Metoprolol CR 25 MG TABCR PO (09:04)
[2019-09-16] MEDS: Acetaminophen 500 MG TAB 1000 MG PO ×3 (09:04→20:25)
[2019-09-16] MEDS: Furosemide 20 MG TAB 10 MG PO (09:04)
[2019-09-16] MEDS: Terazosin 2 MG CAP PO ×2 (09:05→20:24)
[2019-09-16] MEDS: Gabapentin 100 MG CAP PO ×3 (09:05→20:24)
[2019-09-16] MEDS: predniSONE 5 MG TAB PO (09:06)
--- NOTE | 2019-09-16 11:40 | NT_ITS ---
Date of service: 09/16/19 Time of Service: 11:40 PT Notes Visit Reasons: RIGHT HIP DJD 09/16/2019 Held on PT this AM as pt is dizzy and sick to her stomach. Will resume in PM. Tiffany Guzman, DIRECTOR OF PHOTOGRAPHY
[2019-09-16 11:48] VITALS: BP 181/70; PULSE 71; RESP 18; TEMP 36.5; O2SAT 96
[2019-09-16 12:00] VITALS: BP 168/74
--- NOTE | 2019-09-16 13:31 | W.PM.PROGNOT ---
Date of Service Date of service: 09/16/19 Time of Service: 13:31 Assessment and Plan Assessment and plan (1) Degenerative joint disease of right hip: Status: Acute Assessment and plan: Joy is doing well. She did have some nausea this morning but this has resolved. She is nervous about going home given her ill feeling this morning. I encouraged her to work with PT and I expect that she'll be able to go home in the next 1-2 days. She should continue with PT, WBAT. If the nausea returns we can try an anti-emetic. Qualifiers: Osteoarthritis type: primary Qualified Code(s): M16.11 - Unilateral primary osteoarthritis, right hip Subjective Subjective Interval history since last seen: Joy did have some nausea and ill-feeling this morning. She was able to ambulate yesterday but not this morning, although she is standing up for a walk as I visit today. She currently feels much better and just a little uneasy. She denies fever or chills. She has no SOB or chest pain. Exam Narrative Exam Narrative: Able to stand with her weight on the right leg. Dressing c/d/i. No pain with gentle ER and IR of the right hip. Objective Objective Clinical Data: Abnormal lab results 09/16/19 09/16/19 09/16/19 Range/Units 06:40 06:40 06:40 RBC 3.42 L (4.00-5.20) m/cumm Hgb 10.3 L (12.0-15.5) g/dL Hct 32.2 L (36.0-46.0) % PT 12.7 H (9.3-11.0) sec INR 1.3 H (0.9-1.1) Chloride 108 H (98-107) mmol/L BUN 19 H (7-18) mg/dL Glucose 127 H (74-106) mg/dL Calcium 7.7 L (8.5-10.1) mg/dL Vital Signs Temperature 36.5 C 09/16/19 11:48 Temperature Source Tympanic 09/16/19 11:48 Pulse 71 09/16/19 11:48 Pulse Rhythm Regular 09/15/19 19:25 Respiratory Rate 18 09/16/19 11:48 Respiratory Effort Non-Labored 09/15/19 19:25 Respiratory Depth Normal 09/15/19 19:25 Respiratory Pattern Normal 09/15/19 06:16 Blood Pressure 168/74 H 09/16/19 12:00 Pulse Oximetry 96 09/16/19 11:48 Respiratory End-tidal CO2 35 09/15/19 10:47 Oxygen Delivery Method Room Air 09/16/19 11:48 Oxygen Flow Rate 0 09/16/19 11:48 Pain Level 0 09/16/19 11:48 Comment 09/16/19 08:08 Intake & Output 09/15/19 09/16/19 09/16/19 23:59 11:59 23:59 Intake Total 530 / 1900 1072 / 1072 Output Total 300 / 750 450 / 450 Balance 230 / 1150 622 / 622 Intake: IV 50 / 1420 1072 / 1072 Oral 480 / 480 Output: Urine 300 / 300 450 / 450 Other: Urine Color Dark Pallavi Straw Urine Appearance Clear Clear Laboratory Results WBC 8.84 k/cumm (4.4-10.8) 09/16/19 06:40 RBC 3.42 m/cumm (4.00-5.20) L 09/16/19 06:40 Hgb 10.3 g/dL (12.0-15.5) L 09/16/19 06:40 Hct 32.2 % (36.0-46.0) L 09/16/19 06:40 MCV 94.2 fL (80-95) 09/16/19 06:40 MCH 30.1 pg (27.0-33.0) 09/16/19 06:40 MCHC 32.0 g/dL (32.0-36.0) 09/16/19 06:40 RDW 12.6 % (11.7-14.6) 09/16/19 06:40 Plt Count 229 x1000/uL (130-400) 09/16/19 06:40 MPV 9.9 fL (8.0-11.0) 09/16/19 06:40 PT 12.7 sec (9.3-11.0) H 09/16/19 06:40 INR 1.3 (0.9-1.1) H 09/16/19 06:40 Sodium 142 mmol/L (136-145) 09/16/19 06:40 Potassium 4.2 mmol/L (3.5-5.1) 09/16/19 06:40 Chloride 108 mmol/L (98-107) H 09/16/19 06:40 Carbon Dioxide 26.0 mmol/L (21.0-32.0) 09/16/19 06:40 Anion Gap 8.0 mmol/L (3-11) 09/16/19 06:40 BUN 19 mg/dL (7-18) H 09/16/19 06:40 Creatinine 0.73 mg/dL (0.55-1.02) 09/16/19 06:40 Estimated GFR/1.73 m2 >= 60.00 (mL/min/1.73m2) 09/16/19 06:40 Glucose 127 mg/dL (74-106) H 09/16/19 06:40 Calcium 7.7 mg/dL (8.5-10.1) L 09/16/19 06:40
--- NOTE | 2019-09-16 14:32 | PT.INTREAT ---
Date of service: 09/16/19 Time of Service: 14:32 PT Notes Visit Reasons: RIGHT HIP DJD 09/16/2019 SUBJECTIVE: Pt stating she does have some discomfort in her hip this afternoon. Her nausea is improved. She is inquiring about a shower. OBJECTIVE: Pt seen 2x this PM. TRANSFERS Sit to stand: SBA Stand to sit: SBA Sit to supine: Min A for her LE's GAIT Device: FWW Weight bearing: AT R Assist: SBA Distance: 120' with additional 120' later in the afternoon. Deviation: Step through gait pattern. TOILETING: Indendependent THEREX: Review hourly exercises that she has on the board and she has been compliant with these. ASSESSMENT: Pt is feeling better overall this afternoon although does have some increase in hip pain. She will discuss a shower with the nursing staff. Her mobility is progressing nicely with good management with the walker with step through pattern. Her son is present during her second treatment today and he notes she is walking significantly better than she has for weeks. PLAN: Continue current POC. Work on tub shower transfers as this is her set up at home. Treatment time: 30 minutes; 12:30-12:45, 2:15-2:30 [id number] Tiffany Guzman, NADINE
--- NOTE | 2019-09-16 14:40 | CHAPLAIN ---
Ratna was resting in bed and visiting with her friend Chris when I stopped in. Ratna told me that she lives in the [address], where she has a view of [address]. She attends the [facility] [facility] [employer] and gave me permission to contact her replanter, Rev. Pérez. Rev. Pérez is returning from a trip today and will not be back in [facility] until later tonight. I'll let Ratna know this.
[2019-09-16 15:32] VITALS: BP 139/58; PULSE 60; RESP 18; TEMP 36.9; O2SAT 95
--- NOTE | 2019-09-16 18:09 | PDOC.CMIN ---
- If Service Date Differs Date of service: 09/16/19 Time of Service: 18:09 Care Management Initial Assess REASON FOR HOSPITALIZATION:: R Hip Replacement PAST MEDICAL HISTORY/PAST SURGICAL HISTORY:: Medical History . Adenomatous colon polyp. Allergic rhinitis. Anticoagulated. Atrial fibrillation. Black stools. Chronic diarrhea. Chronic diarrhea (Acute). Cystocele with rectocele. Deafness in left ear. Diabetes mellitus. Diverticulosis. Esophageal stricture. GERD (gastroesophageal reflux disease). H. pylori infection. History of adenomatous polyp of colon (Acute). Hyperlipidemia. Hypertension. Lumbar back pain. Meningioma. Osteoarthritis (Chronic). Polymyalgia rheumatica. Rectocele. Right hip pain. Skin cancer of nose. Traumatic wound (Acute). Ulcer of right leg (Acute). 04/26/19 referral from Anabelle Domingo - injured on sharp piece of wheelchair 3-4 weeks ago. Seen in ER, antibx not finished due to diarrhea. Not healing. Urinary incontinence. Venous stasis. Surgical History . Appendectomy. Cholecystectomy. Colonoscopy - IV Sedation. 2013- perforation. Incision & Drainage, Abscess or Hematoma PREVIOUS FUNCTIONAL STATUS/SOCIAL/FAMILY SUPPORTS:: Ratna lives at the [facility] in [facility] with her cat. She lives on the second floor, but there is an elevator that she can take up to her floor. She has a lot of family support, including her son and daughter in law, Alex and Rebekah, and her son Ned, and daughter Alexandra. She enjoys going to coffee hours and community dinners in her building. She is independent at baseline, but does not drive. CURRENT FUNCTIONAL STATUS:: Ratna was sitting up in her chair when CM met with her. She reported that she was feeling a lot of pain last night and this morning, and that she was also naseaus and not eating. She did report that she asked for a roast beef sandwich, which had not yet arrived. She stated that she feels that she is being well taken care of at [facility] with no complaints. CM will continue to follow. ADVANCE DIRECTIVES:: None on file. Has patient been provided with information about the portal?: Yes Did the patient sign up for the portal?: No (interested) CODE STATUS:: Full Code INSURANCE COVERAGE / FINANCIAL ISSUES:: MCR/ AARP CURRENT HOME/COMMUNITY SERVICES/EQUIPMENT:: Ratna has a 4WW. PT will evaluate if she needs a FWW, or if she can use her 4WW, which she is comfortable with. PRIMARY CARE PHYSICIAN:: Anabelle Domingo POTENTIAL DISCHARGE NEEDS:: Evaluations for further needs, follow up appointments PATIENT/FAMILY EDUCATION NEEDS:: Review discharge instructions regarding medications and activity levels, discussion of self care including ask me three ANTICIPATED BARRIERS TO DISCHARGE:: None identified at this time. TRANSPORTATION:: Ratna will transport via private vehicle, driven by family PLAN:: Anticipate Ratna will return home with no additional services once cleared by MD. She may need DME, if recommended by PT. She will follow up with Ortho, as recommended. Her family will drive her via private vehicle. CM will continue to follow.
[2019-09-16] MEDS: Atorvastatin 10 MG TAB 20 MG PO (20:24)
[2019-09-16] MEDS: Omeprazole 20 MG CAPCR PO (21:19)
[2019-09-17] MEDS: oxyCODONE 5 MG TAB PO (00:11)
[2019-09-17] MEDS: Normal Saline Flush 10 ML SYR IV ×2 (00:12→08:58)
[2019-09-17] MEDS: Hydrocortisone SOD SUC. 100 MG VIAL 25 MG IVP ×2 (00:12→08:57)
[2019-09-17 00:29] VITALS: BP 184/81; PULSE 79; RESP 18; TEMP 37.3; O2SAT 96
[2019-09-17 08:05] LABS: INR 1.2 (0.9-1.1)
--- NOTE | 2019-09-17 08:05 | DSE_ITS ---
Date of service: 09/17/19 Time of Service: 08:05 DS: Diagnosis Discharge Diagnosis (1) Degenerative joint disease of right hip: Status: Acute Discharge Plan Disposition Patient Disposition: HOME W/HOME HEALTH SERVICE Condition: Improving Discharge Details Reason For Visit: RIGHT HIP DJD Admit Date/Time: 09/15/19 05:50 Admit Provider: Lee Cruz Attending Provider: Lee Cruz Primary Care Provider: Anabelle Cason [facility] Course Hospital Course: Patient was admitted to the medical/surgical floor following the procedure. It was tolerated well without any notable medical, surgical, or anesthetic complications. Mobilization began postoperatively. The freeman catheter was removed and voiding spontaneously. Vitals were stable. Physical therapy worked with the patient and was cleared for discharge home. No acute medical issues. Home Meds and New Rx's Prescriptions: New acetaminophen 500 mg tablet 1,000 mg PO Q8H PRN (Reason: pain) Qty: 90 RF: 3 oxycodone 5 mg tablet 2.5 - 5 mg PO Q8H PRN PRNQty: 9 RF: 0 Continued furosemide 20 mg tablet 10 mg PO DAILY RF: 0 omeprazole 20 mg capsule,delayed release(DR/EC) 20 mg PO HS RF: 0 losartan 50 MG tablet 100 mg PO QAM RF: 0 dofetilide [Tikosyn] 125 MCG capsule 125 mcg PO BID RF: 0 glipizide 2.5 MG tablet extended release 24hr 2.5 mg PO QAM RF: 0 prednisone 2.5 MG tablet 5 mg PO QAM RF: 0 gabapentin 100 MG capsule 100 mg PO TID RF: 0 atorvastatin 10 MG tablet 20 mg PO QAM RF: 0 warfarin 2.5 mg tablet 2.5 mg PO DIRECTED RF: 0 Myrbetriq 50 mg tablet extended release 24 hr 50 mg PO DAILY Qty: 90 RF: 4 potassium chloride [Klor-Con 10] 10 mEq tablet extended release 20 meq PO BID Qty: 360 RF: 3 magnesium L-lactate [Magtab] 84 mg tablet extended release 252 mg PO BID Qty: 180 RF: 11 metoprolol succinate 25 mg Tablet Extended Release 24 Hr 25 mg PO DAILY RF: 0 terazosin 2 MG capsule 2 mg PO BID RF: 0 Discontinued oxycodone-acetaminophen [Percocet] 2.5-325 mg tablet 1 tab PO Q4H MDD 4 grams acetomeniphen PRN (Reason: pain) Qty: 10 RF: 0 tramadol 50 mg tablet 50 mg PO Q6H PRN (Reason: pain) Qty: 10 RF: 0 Discharge Instructions Instructions: Total Hip Discharge Instructions Additional Instructions: Dr. Cruz?s Total Hip Discharge Instructions Activity: The most important activity is to walk. You should try to take short walks a few times a day. You have no restrictions on movement or positioning, but do not try to force what you do. You will find some stiffness and weakness with hip flexion (lifting your knee). Do not try to strengthen this too early, continue to practice walking and stairs and this will come. - Outpatient physical therapy can be helpful to help return you to a normal gait and improve your flexibility and strength. This can start around 2 weeks. For some patients, it?s not necessary. Usually this is determined at the time of discharge or at the first post-operative visit. - You should wear the EARNEST hose on both legs for 2 weeks. Dressing: Keep the surgical dressing in place for at least one week. After the first week it may be removed and replace with light gauze and tape or nothing. It may get wet after 3 days but avoid soaking the dressing. If it gets wet, just lightly pat dry. It is important to always keep some gauze between skin folds, especially when you are sitting. Spend some time with the wound exposed when you are lying flat as the incision does wrinkle onto itself. Medications: - You should take Tylenol and an anti-inflammatory [Celebrex] as your primary pain control medications - You have been prescribed a stronger pain medication [Oxycodone] for breakthrough pain, take as needed as prescribed. - You have also been prescribed a stomach acid reduction agent [Pantoprozole] to help reduce stomach acid and reflux. - You will be taking [Aspirin 81mg twice a day] for DVT prevention unless instructed otherwise. - If you have constipation you should take Colace or Miralax (both [id number]). It takes most people 3-4 days to have a bowel movement. Follow-up: 2 weeks 1. Encounter Date and Reason I certify that LARS ELIAS was seen by Lee Cruz MD on 09/17/19 and that I had a [id number] encounter with this patient that meets the physician face to face encounter requirements. 2. Clinical Findings Supporting Skilled Need and Homebound Status I certify that home health services are medically necessary, include either intermittent group home and/or physical/speech therapy, and that this patient is homebound in that absences from the home require considerable and taxing effort and are infrequent or of short duration, or are attributable to the need to receive medical care. [X] (a) Attached documentation from encounter provides clinical findings supporting skilled need and homebound status (including what assistance patient requires to leave the home). The encounter with the patient was in whole, or in part, for the following medical condition, which is the primary reason for home health care: RIGHT HIP DJD [facility]: Physical Therapy:Joy would benefit from home health therapy to address her weakness and stiffness post- DEJON. She is limited in ambulation. She has no restrictions s/p DEJON but should use an assistive device. Joy also needs INR draws for Coumadin therapy treatment. Speech Therapy: Homebound: Joy is unable to leave her home unassisted. 3. Certification and Authentication I certify that I composed the above information based on my clinical judgement relating to this patient's medical condition and, if applicable, clinical findings communicated to me by the NPP or inpatient physician who performed the Home Health Referral. All further orders will be obtained through Dr. Cruz Stand Alone Forms: Nursing Discharge Form Referrals: Lee Cruz MD [ [facility] STAFF PHYSICIAN] - 10/01/19 10:30 am Activity:: Activity as Tolerated Equipment/Supplies:: Walker Diet:: Carb Counting Discharge Orders Discharge Orders: Discharge Order (Routine); Ordered 09/17/19 Ordered By: Lee Cruz DS: Summary Status at Discharge Functional status at discharge: uses cane/walker Overall status at discharge: patient is progressing back to baseline Mental Status: mental status grossly normal Speech and Movement: speech and movement normal Mood: congruent mood Affect: normal affect Exam Psych Mental Status: mental status grossly normal Speech and Movement: speech and movement normal Mood: congruent mood Affect: normal affect DS: Data Vitals/I&O Vitals and I&O: Vital Signs Temperature 37.3 C 09/17/19 00:29 Temperature Source Tympanic 09/17/19 00:29 Pulse 79 09/17/19 00:29 Pulse Rhythm Regular 09/17/19 01:39 Respiratory Rate 18 09/17/19 00:29 Respiratory Effort Non-Labored 09/17/19 01:39 Respiratory Depth Normal 09/17/19 01:39 Respiratory Pattern Normal 09/15/19 06:16 Blood Pressure 184/81 H 09/17/19 00:29 Pulse Oximetry 96 09/17/19 00:29 Respiratory End-tidal CO2 35 09/15/19 10:47 Oxygen Delivery Method Room Air 09/17/19 00:29 Oxygen Flow Rate 0 09/17/19 00:29 Pain Level 8 09/17/19 00:11 Comment 09/16/19 08:08 Intake & Output 09/16/19 09/16/19 09/17/19 11:59 23:59 11:59 Intake Total 1072 / 1312 240 / 1312 Output Total 600 / 1300 700 / 1300 700 / 700 Balance 472 / 12 -460 / 12 -700 / -700 Intake: IV 1072 / 1072 Oral 240 / 240 Output: Urine 600 / 1300 700 / 1300 700 / 700 Other: Urine Color Yellow Yellow Straw Urine Appearance Clear Clear Clear Urine Odor None Normal Voiding Methods Toilet Toilet Toilet Data Completed and Pending Labs on day of discharge: Labs from last 24 hours 09/17/19 06:35 PT Pending INR Pending [facility] Medical History Adenomatous colon polyp Allergic rhinitis Anticoagulated Atrial fibrillation f/u WITH DR. CASON 09/08/19 Black stools Chronic diarrhea Chronic diarrhea (Acute) Cystocele with rectocele Deafness in left ear Diabetes mellitus Diverticulosis Esophageal stricture GERD (gastroesophageal reflux disease) H. pylori infection History of adenomatous polyp of colon (Acute) Hyperlipidemia Hypertension Lumbar back pain Meningioma Osteoarthritis (Chronic) Polymyalgia rheumatica Rectocele Right hip pain Skin cancer of nose Traumatic wound (Acute) Ulcer of right leg (Acute) 04/26/19 referral from Anabelle Cason - injured on sharp piece of wheelchair 3-4 weeks ago. Seen in ER, antibx not finished due to diarrhea. Not healing. Urinary incontinence Venous stasis Surgical History Appendectomy Cholecystectomy Colonoscopy - IV Sedation 2013- perforation Incision & Drainage, Abscess or Hematoma R leg Social History Smoking/Tobacco Use Status: Never Alcohol Intake: current Drug use: Never Substance use type: does not use Current gender identity: female Do you feel safe at home: Yes Do you feel safe in your relationship?: Yes
[2019-09-17 08:25] VITALS: BP 150/87; PULSE 69; RESP 16; TEMP 36.7; O2SAT 94
[2019-09-17] MEDS: Magnesium Lactate-SR 84 MG TABCR 252 MG PO (08:50)
[2019-09-17] MEDS: Potassium Chloride 20 MEQ TABCR PO (08:52)
[2019-09-17] MEDS: Terazosin 2 MG CAP PO (08:52)
[2019-09-17] MEDS: predniSONE 5 MG TAB PO (08:54)
[2019-09-17] MEDS: Gabapentin 100 MG CAP PO (08:54)
[2019-09-17] MEDS: Losartan 50 MG TAB 100 MG PO (08:54)
[2019-09-17] MEDS: Metoprolol CR 25 MG TABCR PO (08:54)
[2019-09-17] MEDS: Mirabegron 50 MG TABCR PO (08:54)
[2019-09-17] MEDS: Celecoxib 100 MG CAP PO (08:54)
[2019-09-17] MEDS: Acetaminophen 500 MG TAB 1000 MG PO (08:55)
[2019-09-17] MEDS: Furosemide 20 MG TAB 10 MG PO (09:03)
--- NOTE | 2019-09-17 10:59 | PT.INTREAT ---
Date of service: 09/17/19 Time of Service: 10:59 PT Notes Visit Reasons: RIGHT HIP DJD 09/17/2019 SUBJECTIVE: Ratna stating she is going home today. She only has pain upon movement and it is a different type of pain than before surgery. She notes she will have some help at home if need be. OBJECTIVE: Seated in her chair. Agreeable to PT. TRANSFERS Sit to stand: S Stand to sit: S GAIT Device: FWW Weight bearing: AT R Assist: S Distance: 120' Deviation: Step through pattern ADL:Pt stands at sink for extended period of hira and independently washes her arms and face and brushes her teeth. Toilets independently. THEREX: Pt performs LAQ seated in her chair and we review ankle pumps, QS and glut sets. ASSESSMENT: Pt tolerates PT well this morning. She will be obtaining and FWW for home to utilize verse her 4WW. Her pain seems to be under control. She has a good understanding of her home program. PLAN: Pt to be discharged home today. See discharge summary for details. Treatment time: 23 minutes [id number], [id number] Tiffany Guzman, MOTION PICTURE SET WORKER
[2019-09-17] MEDS: Insulin Aspart 300 UNITS/3 ML PEN SC (12:04)
--- NOTE | 2019-09-17 17:30 | CMDISCH_ITS ---
- If Service Date Differs Date of service: 09/17/19 Time of Service: 17:30 LACE Index Scoring Tool - Questions: Length of Stay (in days): 2 Acuity (Admit via E.D.?): No E.D. Visits: 0 - Answers: Total Score: 2 Risk of Readmission: Low Risk Care Management Discharge Reason for Hospitalization: R Hip Replacement Discharge Plan: Joy will be discharged home today, son Alex will grain picker a FWW at local pharmacy. CM coordinated a lift assist into the home due to weather and length of ramp to get into the apartment. Home Health PT was ordered and a face to face was sent for services. No other needs at time of discharge she will follow up with as directed. Patient/Family Education Needs: Discharge education, limitations and follow up plan of care including ask me three and self management. Services Needed at Discharge: Home Health Care Services
--- NOTE | 2019-09-20 14:58 | PT.INDS ---
Date of service: 09/20/19 PT Notes Visit Reasons: RIGHT HIP DJD Physical Therapy Inpatient Discharge Summary Date: 09/20/2019 Dates of Service: 09/15/2019 through 09/17/2019 This is a clinical summary of care provided on the duration of dates listed above. No charge was made in the completion of this documentation. Referring Doctor: Lee Cruz M.D. PT Orders: PT CONSULT: s/p ortho surgery. s/p R Anterior DEJON Precautions: Fall. Standard. Activity as tolerated. Patient Profile/Admitting Diagnosis: Pt is an 84-year-old female with a history of severe right hip arthritis, presenting with status post a right anterior approach total hip arthroplasty on post-operative day 0. PMHX: Medical History Adenomatous colon polyp Allergic rhinitis Anticoagulated Atrial fibrillation Black stools Chronic diarrhea Chronic diarrhea (Acute) Cystocele with rectocele Deafness in left ear Diabetes mellitus Diverticulosis Esophageal stricture GERD (gastroesophageal reflux disease) H. pylori infection History of adenomatous polyp of colon (Acute) Hyperlipidemia Hypertension Lumbar back pain Meningioma Osteoarthritis (Chronic) Polymyalgia rheumatica Rectocele Right hip pain Skin cancer of nose Traumatic wound (Acute) Ulcer of right leg (Acute) 04/26/19 referral from Anabelle Domingo - injured on sharp piece of wheelchair 3-4 weeks ago. Seen in ER, antibx not finished due to diarrhea. Not healing. Urinary incontinence Venous stasis Surgical History Appendectomy Cholecystectomy Colonoscopy - IV Sedation 2012- perforation Incision & Drainage, Abscess or Hematoma Social History/Home Situation: Pt [facility]. Notes there are stairs and ramp to enter, but most often uses the ramp with her walker. Equipment Owned/DME: four-wheeled walker Subjective: NT Objective: General Observation: NT Pain: NT ROM: Right Upper Extremity: Shoulder Flexion WFL. Shoulder abduction WFL. Elbow flexion WFL. Wrist flexion WFL. Opening and closing of hand WFL. Left Upper Extremity: Shoulder Flexion WFL. Shoulder abduction WFL. Elbow flexion WFL. Wrist flexion WFL. Opening and closing of hand WFL. Right Lower Extremity: Hip flexion 85 degrees. Hip abduction WFL. Knee flexion WFL. Ankle dorsiflexion WFL. Ankle plantarflexion WFL. Left Lower Extremity: Hip flexion WFL. Hip abduction WFL. Knee flexion WFL. Ankle dorsiflexion WFL. Ankle plantarflexion WFL. Strength: Right Upper Extremity: Shoulder flexors 5/5. Shoulder abductors 5/5. Elbow flexors 5/5. Elbow extensors 5/5. Second Worker strong. Left Upper Extremity: Shoulder flexors 5/5. Shoulder abductors 5/5. Elbow flexors 5/5. Elbow extensors 5/5. Second Worker strong. Right Lower Extremity: Hip flexors 3-/5. Hip abductors 4/5. Knee flexors 3-/5. Knee extensors 4+/5. Ankle dorsiflexors 5/5. Ankle plantarflexors 5/5. Left Lower Extremity: Hip flexors 4/5 (discomfort in right hip). Hip abductors 5/5. Knee flexors 5/5. Knee extensors 5/5. Ankle dorsiflexors 5/5. Ankle plantarflexors 5/5. Sensation: Intact as to pain and pressure on bilateral lower extremities. Bed Mobility/Transfers: Sit to stand supervision Stand to sit supervision Bed to chair supervision Chair to bed supervision Gait: Pt was able to ambulate 120 feet, WBAT on the right LE, using a front-wheeled walker. Step through gait pattern. Supervision provided by the EXTENSION WORK INSTRUCTOR. She was able to independently stand at the sink to wash up and toilet. Balance: Static Sitting: Normal Dynamic Sitting: Normal Static Standing: Good Dynamic Standing: Fair Assessment: Pt is an 84-year-old female with a history of severe right hip arthritis, that presented status post a right anterior approach total hip arthroplasty on post-operative day zero. She presented with impairment level findings and functional limitations as listed below. AM-PAC raw score of 22 with 21% deficit. She demonstrated improvements in bed mobility and transfers, as she required less assistance. Continues to demonstrate step through gait pattern with ambulation. She shows the ability to independently toilet and stand at the sink during two consecutive treatment sessions. Patient presented with clinical signs and symptoms consistent with current/admitting diagnoses that have resulted to mobility limitations, gait instability, and generalized weakness as demonstrated by the following impairment level findings: 1. Decreased strength to R hip major muscle groups 2. Impaired standing balance 3. Impaired activity tolerance 4. Limitation of joint range of motion in R hip Impairments continue to contribute to the following functional limitations: 1. Inability to safely ambulate without assistive device and physical assistance 2. Increase completion time for mobility ADL performance 3. Increased fall risk 4. Inability to negotiate steps alone safely Patient is assessed as a [id number] moderate complexity based on the following: History: Pt is an 84-year-old female with a history of severe right hip arthritis, presenting status post a right anterior approach total hip arthroplasty on post-operative day zero. She presents with impairment level findings and functional limitations as listed above. AM-PAC raw score of 22 with 21% deficit. Examination: Demonstrable impairment in strength, balance, and range of motion with underlying impairments and functional limitations as documented above Presentation: Evolving Decision Makin moderate complexity Goals: Goals X1 week 1. Supine-Sit independent -NOT MET 2. Sit-Supine independent-NOT MET 3. Sit-Stand independent -NOT MET 4. Stand-Sit independent -NOT MET 5. Bed-Chair independent -NOT MET 6. Chair-Bed independent -NOT MET 7. Independent gait on level surface with use of least restrictive device for at least 300 feet without report of pain nor dyspnea -NOT MET 8. Independent stair negotiation while holding onto bilateral rails for at least 5 steps without report of pain nor dyspnea -NOT MET 9. Independent with home exercise program -NOT MET 10. Good dynamic standing balance/tolerance -NOT MET DISCHARGE RECOMMENDATIONS: Discharge to home when medically cleared. Recommend a front-wheeled walker for ambulation. Patient will benefit from home health PT services in order to progress mobility level using least restrictive assistive ambulatory device, assess home safety, identify additional equipment needs, and establish a functional maintenance program that will increase ability of patient to remain at home. Thank you very much for this referral. Blayne Carranza, SPT Doctor of Physical Therapy Student [facility] Supervision provided by Marie Sorensen PT, DPT, CLT [facility] [place], [place]
== END 2019-09-17 12:20 | disposition home health service (06) | DRG 470 ==
LOC: PDS 05:50 → MS 11:35
PROVIDERS: Nurse Anesthetist, Certified Registered; Admitting Provider Student in an Organized Health Care Education/Training Program; PCP Family Medicine; Visit Provider Student in an Organized Health Care Education/Training Program
PROC: 0SR904A Replacement of Right Hip Joint with Ceramic on Polyethylene Synthetic Substitute, Uncemented, Open Approach (ICD-10-PCS; CPT 27130; principal; 2019-09-15 07:30)
DX: M16.11 Unilateral primary osteoarthritis, right hip (principal); Z96.641 Presence of right artificial hip joint; M25.551 Pain in right hip; Z79.01 Long term (current) use of anticoagulants; E11.9 Type 2 diabetes mellitus without complications; K21.9 Gastro-esophageal reflux disease without esophagitis; I10 Essential (primary) hypertension; E78.5 Hyperlipidemia, unspecified; R32 Unspecified urinary incontinence; R11.0 Nausea; Z79.4 Long term (current) use of insulin; Z23 Encounter for immunization
CPT/HCPCS: 27130; 36415; 80048; 85027; 97162; 97530; NC; 73501; 85610; J0690; J1100; J1720; J1885; J2001; J2405; J2704; J3010; J3490; J7512

== ENCOUNTER 2019-10-15 10:48 | Outpatient (CLI) | payer MEDICARE, SELFPAY ==
--- NOTE | 2019-10-15 10:30 | DI.RAD_ITS ---
EXAM: XR HIP RT COMPLETE AP PELVIS INDICATION: 1ST POST OP. COMPARISON: XR hip RT complete AP pelvis from 01/22/2019 XR HIP RT IN OR from 09/15/2019 TECHNIQUE: 2D digital imaging was performed. FINDINGS: A right hip prosthesis is seen. The components appear well aligned. No bony lucencies are seen. Th ere are moderate degenerative changes of left hip. There are severe degenerative changes of the lowe r lumbar spine. IMPRESSION: Stable appearance of right hip prosthesis. DATA REPOSITORY: RADIATION DOSE DELIVERED:
== END 2019-10-15 11:08 ==
PROVIDERS: PCP Family Medicine; Referring Provider Family Medicine; Visit Provider Student in an Organized Health Care Education/Training Program
DX: Z96.641 Presence of right artificial hip joint (principal); M16.12 Unilateral primary osteoarthritis, left hip; Z47.1 Aftercare following joint replacement surgery; M16.11 Unilateral primary osteoarthritis, right hip
CPT/HCPCS: 73502

== ENCOUNTER → 2019-11-26 11:21 | Outpatient (BNVA) | payer MEDICARE, SELFPAY | PROVIDERS: PCP Family Medicine; Referring Provider Family Medicine; Visit Provider Student in an Organized Health Care Education/Training Program | DX: Z47.1 Aftercare following joint replacement surgery; Z96.641 Presence of right artificial hip joint ==

== ENCOUNTER 2020-02-07 01:46 | Outpatient (CLI) | payer MEDICARE, SELFPAY ==
--- NOTE | 2020-02-07 | DI.CT_ITS ---
EXAM: CT HEAD WO/W CLINICAL HISTORY: HEADACHES, R51, HX OF MENINGIOMA RESECTION 2006. TECHNIQUE: Imaging Protocol: Axial computed tomography images with coronal and sagittal reformatted images were created and reviewed. CONTRAST MATERIAL: Intravenous: Omnipaque 350 Contrast volume:100 mL COMPARISON: CT HEAD WITHOUT CONTRAST from 04/11/2010 CT HEAD WITHOUT CONTRAST from 09/25/2012 CT HEAD WITHOUT CONTRAST from 09/25/2012 MR MRI - BRAIN W/WO CONTRAST from 09/26/2012 ECG EKG from 12/27/2015 FINDINGS: Ventricles and Extra axial spaces: Normal in size and morphology for the patient's age. Hemorrhage: None. Cerebral parenchyma: There are areas of decreased attenuation in the white matter most consistent wit h small vessel ischemic disease. There are areas of encephalomalacia involving the occipital lobes bi laterally right greater than left. No intracranial mass is identified. Enhancement: No suspicious enhancement. Warfield of Gupta: Unremarkable. Midline shift: None. Brainstem/Cerebellum: Normal. Calvarium: Normal. Visualized Paranasal sinuses/Mastoids: Clear. IMPRESSION: No acute intracranial process. No evidence of an intracranial mass or enhancing lesion. RADIATION DOSE DELIVERED: Total DLP Total DLP DATA REPOSITORY: All CT scans at this facility are submitted to the National Radiology Data Registry (NRDR) Dose Index Registry (DIR) with the [employer] (ACR). RADIATION OPTIMIZATION: All CT scans at this facility use at least one of these dose optimization te chniques: automated exposure control; mA and/or kV adjustment per patient size (includes targeted exa ms where dose is matched to clinical indication); or iterative reconstruction.
[2020-02-07 13:06] LABS: HCT 41.3 % (36.0-46.0); HGB 13.2 g/dL (12.0-15.5); Mean Corpuscular Hemoglobin 30.8 pg (27.0-33.0); Mean Corpuscular Volume 96.5 fL (80-95); Platelet Count 332 x1000/uL (130-400); RBC 4.28 m/cumm (4.00-5.20); RBC Distribution Width 13.5 % (11.7-14.6); White Blood Cell Count 8.69 k/cumm (4.4-10.8)
[2020-02-07 13:16] LABS: INR 2.8 (0.9-1.1); Prothrombin Time 27.4 sec (9.3-11.0)
[2020-02-07 13:20] LABS: ALT 27 U/L (14-59); AST 28 U/L (15-37); Albumin 3.6 g/dL (3.4-5.0); Alkaline Phosphatase 55 U/L (46-116); Anion Gap 6.4 mmol/L (3-11); BUN 17 mg/dL (7-18); Bilirubin, Total 0.8 mg/dL (0.2-1.0); CO2 29.6 mmol/L (21.0-32.0); CREATININE 0.89 mg/dL (0.55-1.02); Calcium 8.9 mg/dL (8.5-10.1); Chloride 106 mmol/L (98-107); Glucose 133 mg/dL (74-106); Potassium 4.2 mmol/L (3.5-5.1); Sodium 142 mmol/L (136-145); Total Protein 6.6 g/dL (6.4-8.2)
[2020-02-07] MEDS: Omnipaque 350 MG/ML 100 ML BTL IV (13:55)
[2020-02-07] MEDS: Normal Saline - Diluent 50 ML VIAL IV (14:27)
== END 2020-02-07 02:06 ==
PROVIDERS: PCP Family Medicine; Visit Provider Family Medicine
DX: R51 Headache (principal); I67.82 Cerebral ischemia; F19.20 Other psychoactive substance dependence, uncomplicated; I10 Essential (primary) hypertension; K52.9 Noninfective gastroenteritis and colitis, unspecified; Z01.818 Encounter for other preprocedural examination
CPT/HCPCS: 80053; 82533; 85027; 70470; 85610; J3490

== ENCOUNTER → 2020-02-09 14:22 | Outpatient (BNVA) | payer MEDICARE, SELFPAY | PROVIDERS: PCP Family Medicine; Referring Provider Family Medicine; Visit Provider Nurse Practitioner Gerontology | DX: N39.46 Mixed incontinence (principal) | CPT/HCPCS: 99213 ==

== ENCOUNTER 2020-05-15 18:35 | Outpatient (REF) | payer MEDICARE, SELFPAY ==
[2020-05-15 19:20] LABS: Magnesium 1.5 mg/dL (1.8-2.4)
== END 2020-05-15 18:55 ==
LOC: NCHCN 18:35
PROVIDERS: PCP Family Medicine; Visit Provider Family Medicine
DX: E11.9 Type 2 diabetes mellitus without complications (principal); I10 Essential (primary) hypertension; R51.9 Headache, unspecified
CPT/HCPCS: 83036; 83735

== ENCOUNTER 2020-05-29 21:21 | Emergency (ER) | payer MEDICARE, SELFPAY ==
[2020-05-29 21:23] VITALS: BP 113/77; PULSE 89; RESP 18; TEMP 36.5; O2SAT 97
--- NOTE | 2020-05-29 21:23 | W.ED.GENAD ---
Discharge Plan Disposition Patient Disposition: HOME Condition: Good Discharge Details Clinical Impression: Cat scratch Primary Care Provider: Anabelle Cason ED Provider: Wandy Marino Home Meds and New Rx's Prescriptions: Continued furosemide 20 mg tablet 10 mg PO DAILY RF: 0 omeprazole 20 mg capsule,delayed release(DR/EC) 20 mg PO HS RF: 0 Myrbetriq 50 mg tablet extended release 24 hr 50 mg PO DAILY Qty: 90 RF: 4 losartan 50 MG tablet 100 mg PO QAM RF: 0 dofetilide [Tikosyn] 125 MCG capsule 125 mcg PO BID RF: 0 glipizide 2.5 MG tablet extended release 24hr 2.5 mg PO QAM RF: 0 prednisone 2.5 MG tablet 5 mg PO QAM RF: 0 gabapentin 100 MG capsule 100 mg PO TID RF: 0 atorvastatin 10 MG tablet 20 mg PO QAM RF: 0 warfarin 2.5 mg tablet 2.5 mg PO DIRECTED RF: 0 potassium chloride [Klor-Con 10] 10 mEq tablet extended release 20 meq PO BID Qty: 360 RF: 3 magnesium L-lactate [Magtab] 84 mg tablet extended release 252 mg PO BID Qty: 180 RF: 11 metoprolol succinate 25 mg Tablet Extended Release 24 Hr 50 mg PO DAILY RF: 0 terazosin 2 MG capsule 2 mg PO BID RF: 0 acetaminophen 500 mg tablet 1,000 mg PO Q8H PRN (Reason: pain) Qty: 90 RF: 3 Discharge Instructions Instructions: Puncture Wound (ED) Additional Instructions: Please keep current dressing on for the next 24 hours. Please do not lift dressing up to look. Please follow-up with your primary care this week for evaluation. Please monitor wound for signs infection with redness, warmth, drainage, increased pain, fevers or chills. If you develop these, persistent bleeding, or other new/worsening symptoms to seek care urgently again. Referrals: Anabelle Cason MD [Primary Care Provider] - Discharge Data Discharge Date/Time-TO BE ENTERED AT DEPARTURE: 05/29/20 21:55 Medical Decision Making Patient is a pleasant 84-year-old [id number] female presents emergency complaint of bleeding from puncture wound to the dorsal right hand. Patient has a very small puncture wound from where her cat claw her yesterday. No evidence of infection. Small amount of bleeding is noted. Patient history, sounds the patient has had persistently been pulling the dressing off of the wound to check it. I believe this is likely why she continues to ooze. She did have her INR checked 2 weeks ago and it was therapeutic at 2.3. She has been fairly stable at this level for quite some time. Not feel that this needs to be repeated at this time. She does not have any excessive bruising or bleeding noted elsewhere. This in the injury and bleeding, I do not feel that she warrants to have the antibiotics and I feel that the risk outweigh the benefit. Wound was washed by nursing staff. Gelfoam was then applied as well as pressure dressing. Advised to do this on tomorrow. I encouraged she try not to look at this. Encouraged elevation. Return precautions including further bleeding or signs of infection were discussed. She will follow up with primary care. All her questions and concerns were addressed and she is in agreement with plan. HPI General Mode of arrival: ambulatory. Date/Time Provider Initiated Documentation: 05/29/20 21:23. Limitations to Documentation: no limitations. Information obtained by: patient and RN notes reviewed. HPI Narrative: Patient is a pleasant RHD 84 year old female presenting today with c/c of puncture wound to posterior right hand. States that yesterday her cat scratched her. Patients primary concern is that she has had persistent oozing from the puncture site. She is on Coumadin. Related Data Home Medications Medication Instructions Recorded Confirmed atorvastatin 20 mg PO QAM tab-cap 02/24/15 05/29/20 dofetilide [Tikosyn] 125 mcg PO BID 02/24/15 05/29/20 gabapentin 100 mg PO TID 02/24/15 05/29/20 glipizide 2.5 mg PO QAM 02/24/15 05/29/20 losartan 100 mg PO QAM tab-cap 02/24/15 05/29/20 prednisone 5 mg PO QAM tab-cap 02/24/15 05/29/20 furosemide 20 mg tablet 10 mg PO DAILY 05/22/18 05/29/20 omeprazole 20 mg capsule,delayed 20 mg PO HS 05/22/18 05/29/20 release warfarin 2.5 mg tablet 2.5 mg PO DIRECTED tab-cap 05/22/18 05/29/20 potassium chloride 10 mEq 20 meq PO BID #360 tab-cap 09/29/18 05/29/20 tablet,extended release magnesium L-lactate 84 mg 252 mg PO BID #180 tab-cap 12/16/18 05/29/20 tablet,extended release metoprolol succinate 50 mg PO DAILY 09/09/19 05/29/20 terazosin 2 mg PO BID 09/09/19 05/29/20 acetaminophen 1,000 mg PO Q8H PRN #90 tab 09/17/19 05/29/20 mirabegron 50 mg tablet,extended 50 mg PO DAILY #90 tab-cap 02/09/20 05/29/20 release 24 hr Previous Rx's Medication Instructions Recorded potassium chloride 10 mEq 20 meq PO BID #360 tab-cap 09/29/18 tablet,extended release magnesium L-lactate 84 mg 252 mg PO BID #180 tab-cap 12/16/18 tablet,extended release acetaminophen 1,000 mg PO Q8H PRN #90 tab 09/17/19 mirabegron 50 mg tablet,extended 50 mg PO DAILY #90 tab-cap 02/09/20 release 24 hr Allergies Allergy/AdvReac Type Severity Reaction Status Date / Time propranolol Allergy Intermediate Verified 05/29/20 21:31 codeine Allergy Mild Verified 05/29/20 21:31 metformin Allergy Mild Verified 05/29/20 21:31 Penicillins Allergy Unknown Verified 05/29/20 21:31 DIVINE Inhibitors AdvReac Unknown Verified 05/29/20 21:31 General CAROLE: 4 Review of Systems Constitutional Constitutional: Reports as per HPI, Denies chills and Denies fever(s) Musculoskeletal Musculoskeletal: Reports as per HPI Integumentary/Breasts Skin/Breast: Reports as per HPI Neurologic Neurologic: Reports as per HPI, Denies sensory deficit and Denies paresthesias [facility] Medical History (Updated 05/29/20 @ 21:50 by WOOD Peters) Adenomatous colon polyp Allergic rhinitis Anticoagulated Atrial fibrillation f/u WITH DR. CASON 09/08/19 Black stools Chronic diarrhea Chronic diarrhea Cystocele with rectocele Deafness in left ear Diabetes mellitus Diverticulosis Esophageal stricture GERD (gastroesophageal reflux disease) H. pylori infection History of adenomatous polyp of colon Hyperlipidemia Hypertension Lumbar back pain Meningioma Osteoarthritis Polymyalgia rheumatica Rectocele Right hip pain Skin cancer of nose Traumatic wound Ulcer of right leg 04/26/19 referral from Anabelle Jose L - injured on sharp piece of wheelchair 3-4 weeks ago. Seen in ER, antibx not finished due to diarrhea. Not healing. 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) Incision & Drainage, Abscess or Hematoma R leg Social History Smoking/Tobacco Use Status: Never Alcohol Intake: current Drug use: Never Substance use type: does not use Current gender identity: female Do you feel safe at home: Yes Do you feel safe in your relationship?: Yes Exam Const General: cooperative, healthy appearing, comfortable, no acute distress and well developed Nutritional Appearance: average body habitus and well nourished Orientation: alert and awake Resp Effort & Inspection: normal respiratory effort, able to speak in complete sentences and no respiratory distress Cardio Rate: regular rate Rhythm: regular rhythm Skin Trauma: puncture Neuro General: patient alert and patient awake Cognition: normal cognition Speech: speech normal Gait: normal gait Sensory Exam: no sensory deficits noted Extrem Hand/finger images: 1. small puncture wound. Unable to visualize except for small amount of bleeding. No arterial bleeding. No hematoma. Full ROM. No erythema, warmth, or discharge. Good capillary refill. Sensation intact. Psych Appearance: grossly normal and well kempt Mental Status: mental status grossly normal Speech and Movement: speech and movement normal
[2020-05-29] MEDS: Gelatin SPONGE 12-7 MM PKT 1 EACH TP (21:43)
[2020-05-29 21:53] VITALS: BP 113/77; PULSE 89; RESP 18; TEMP 36.5; O2SAT 97
== END 2020-05-29 21:55 | disposition home or self-care (01) ==
PROVIDERS: Emergency Provider Physician Assistant; PCP Family Medicine
DX: S61.431A Puncture wound without foreign body of right hand, initial encounter (principal); W55.03XA Scratched by cat, initial encounter; Z79.01 Long term (current) use of anticoagulants; E11.9 Type 2 diabetes mellitus without complications; Z79.84 Long term (current) use of oral hypoglycemic drugs; I10 Essential (primary) hypertension
CPT/HCPCS: 99282; 99283

== ENCOUNTER 2020-08-29 14:05 | Outpatient (REF) | payer MEDICARE, SELFPAY ==
[2020-08-29 18:50] LABS: BUN 14 mg/dL (7-18); CREATININE 0.78 mg/dL (0.55-1.02); Calcium 8.5 mg/dL (8.5-10.1); Chloride 107 mmol/L (98-107); Glucose 125 mg/dL (74-106); Magnesium 1.5 mg/dL (1.8-2.4); Sodium 141 mmol/L (136-145)
[2020-08-29 18:54] LABS: Hemoglobin A1C 6.1 % (<5.7)
== END 2020-08-29 14:25 ==
LOC: NCHCN 14:05
PROVIDERS: PCP Family Medicine; Visit Provider Family Medicine
DX: I10 Essential (primary) hypertension (principal); E83.42 Hypomagnesemia; K52.9 Noninfective gastroenteritis and colitis, unspecified; E11.9 Type 2 diabetes mellitus without complications
CPT/HCPCS: 80048; 83036; 83735

== ENCOUNTER 2020-10-21 17:52 | Inpatient (IN) | payer MEDICARE, SELFPAY ==
[2020-10-21] VITALS (49 sets, daily range): BP systolic 90–137; BP diastolic 42–90; PULSE 49–129; RESP 12–26; TEMP 36.8; O2SAT 93–97
--- NOTE | 2020-10-21 17:45 | RT.EKG_ITS ---
APPROVED REPORT Exam: Resting ECG Patient Location: E HR:101 bpm ECG Measurements Heart Rate 101 AXIS NJ 162 P 63 QRSd 82 QRS 0 QT 373 T 47 QTc 459 Conclusion Sinus rhythm...normal P axis, V-rate 60- 99 Probable left atrial enlargement...P >50mS, <-0.10mV V1 Low voltage, extremity leads...all extremity leads <0.5mV I have reviewed and interpreted ECG and agree with software generated interpretation.
--- NOTE | 2020-10-21 18:30 | DI.CT_ITS ---
EXAM: CT HEAD CERVICAL SPINE WO COMPARISON: CT HEAD WITHOUT CONTRAST from 04/11/2010 CT HEAD WITHOUT CONTRAST from 09/25/2012 MR MRI - BRAIN W/WO CONTRAST from 09/26/[address] HEAD WO/W from 02/07/2020 FINDINGS: CT examination of the cervical spine was performed without contrast administration. There is marked kyphotic deformity, possibly post-traumatic and chronic, at C3-4 level. There are se yoel degenerative changes of the cervical spine. There is radiodensity at the level of the C1 level in the spinal canal on the right which in retrospe ct appears to been present on prior cranial CT of February 07, 2020 on the inferior-most images. This is of intermediate attenuation and this probably represents a calcified lesion. This measures about 16 millimeters in diameter. This may represent prior trauma, postsurgical changes, or mass lesion. Ad ditional evaluation with MRI recommended. There is no evidence of acute cervical fracture or dislocation. Tracheolaryngeal structures appear intact. No cervical mass or adenopathy. Noncontrast cranial CT was performed. There is moderate generalized cerebral atrophy. There is a small scalp hematoma over the left pariet al region. No evidence of acute intracranial hemorrhage, mass effect, or midline shift. No calvarial fracture. The orbital and temporal bone structures appear intact. Visualized mastoid air cells and paranasal sinuses appear clear. IMPRESSION: No evidence of acute cervical spine injury. Severe degenerative changes and calcified masslike radiodensity of the right spinal canal at C1 level , MR evaluation with scanning of the brain and cervical spine recommended including without and post contrast examination. No evidence of acute intracranial injury. RADIATION DOSE DELIVERED: 1,080.98mGy.cm Total DLP 1,080.98mGy.cm Total DLP DATA REPOSITORY: All CT scans at this facility are submitted to the National Radiology Data Registry (NRDR) Dose Index Registry (DIR) with the [employer] (ACR). RADIATION OPTIMIZATION: All CT scans at this facility use at least one of these dose optimization te chniques: automated exposure control; mA and/or kV adjustment per patient size (includes targeted exa ms where dose is matched to clinical indication); or iterative reconstruction.
--- NOTE | 2020-10-21 18:30 | DI.CT_ITS ---
EXAM: CT CHEST PE ABD PELVIS W TECHNIQUE: CT examination of the chest, abdomen, and pelvis was performed with bolus infusion of 100 cc of Omnipaque 350. COMPARISON: CT CT ABD AORTA CTA W RUNOFF from 05/10/[address] THORACIC LUMBAR SPINE REC from 10/21/2020 FINDINGS: There is no evidence of a thoracic vascular injury. The lungs are clear. No pneumothorax. There are small bilateral pleural effusions and a small pericardial effusion period. No mediastinal hematoma. No adenopathy in the chest. Tracheobronchial tree appears intact. The liver, spleen, and pancreas appear normal, gallbladder has been surgically removed. Mild promine nce of intra and extrahepatic biliary ducts noted consistent with post cholecystectomy status.. Adrenals and kidneys are unremarkable except for multiple bilateral apparent renal cysts.. No eviden ce of urinary tract injury or obstruction. No abdominal or pelvic vascular injury seen. No abdominal or pelvic adenopathy. No significant abdomi nal wall hernia or hematoma. No evidence of bowel injury. Uterus is atrophic or absent. Ovaries nonvisualized. No fracture identified in the region surveyed. Right hip prosthesis noted in position. Additional bony reconstructions of thoracic and lumbar spine show no evidence of fracture. There are marked degenerative changes and a biconvex thoracolumbar scoliosis. IMPRESSION: No evidence of acute injury of the chest, abdomen, or pelvis. RADIATION DOSE DELIVERED: Total DLP Total DLP Total DLP DATA REPOSITORY: All CT scans at this facility are submitted to the National Radiology Data Registry (NRDR) Dose Index Registry (DIR) with the [employer] (ACR). RADIATION OPTIMIZATION: All CT scans at this facility use at least one of these dose optimization te chniques: automated exposure control; mA and/or kV adjustment per patient size (includes targeted exa ms where dose is matched to clinical indication); or iterative reconstruction.
--- NOTE | 2020-10-21 18:34 | ED.GENADUL_ITS ---
Discharge Plan Disposition Patient Disposition: [facility] INPATIENT Condition: Improving Discharge Details Clinical Impression: Syncope, UTI (urinary tract infection), Elevated troponin, Rhabdomyolysis Admit Date/Time: 10/21/20 22:16 Admit Provider: Ned Vasquez Attending Provider: Ned Vasquez Primary Care Provider: Anabelle Cason ED Provider: Killian Ponce Discharge Data Discharge Date/Time-TO BE ENTERED AT DEPARTURE: 10/21/20 23:40 Medical Decision Making <Natalia Choi DO - Last Filed: 10/25/20 07:51> 1810 -- 85-year-old female with a history of atrial fibrillation on warfarin, coronary artery disease, polymyalgia rheumatica, diabetes, hypertension, hyperlipidemia, GERD presents for possible syncopal episode and fall with bilateral hip pain and lower back pain. Vitals within normal limits. She is afebrile and appears nontoxic. Her main complaint is bilateral hip and midline lower back pain. Anterior chest minimally tender. Abdomen soft and tender in lower quadrants. Midline T and L- spine tenderness. She has full range of motion of her hips but with some pain on the left side. Differential diagnosis includes Covid 19 vaccine reaction, dehydration, electrolyte abnormality, arrhythmia, CVA, UTI, etc. Will place an IV, bolus IV fluids, screening labs, urinalysis, CT head, cervical spine, chest, abdomen, pelvis, T and L-spine and IV Tylenol and reassess. Labs reviewed. Normal white blood cell count. INR therapeutic at 2.8. Potassium 3.1, magnesium 1.4, will replete. Troponin indeterminate at 0.12. EKG notes less than [address] depression in V5 V6 but no STEMI. UTI noted on urinalysis. Considering patient allergy to penicillin and interaction of Levaquin with Coumadin, will treat UTI with gentamicin. CT head and cervical spine negative for acute findings. 1999 --Case endorsed to Dr. Ponce to follow-up on remainder of CT imaging and repeat troponin. If repeat troponin stable or downtrending, will admit for observation for trending troponins, IV antibiotics for UTI, fluid hydration and recheck of electrolytes. If repeat troponin uptrending, will consult [facility] cardiology for recommendations and potential transfer. Suspect that elevated troponin is likely demand ischemia in setting of UTI and possibly dehydration. Will hold on treatment for NSTEMI at this time. [id number] --able to contact patient's grandson Alin Lim who notes that patient's boyfriend found her on the ground in her apartment today. He reports she was noted to have urine and stool around her. He did not note any acute evidence of bleeding or vomitus. She was not witnessed to have a syncopal episode and apparently had an unwitnessed fall. He states at baseline she lives alone and is able to care for herself but at times has memory issues. We will add a CK level. Medical Records Medical records reviewed: Yes I reviewed the patient's medical records. Lab Data Lab results reviewed: Yes I reviewed the patient's lab results. Labs: 10/21/20 18:46 Urine - Reflex from Ua Urine Culture - Pending Laboratory Tests Range/Units 10/21/20 10/21/20 10/21/20 18:20 18:20 18:46 WBC (4.4-10.8) 10^3/uL RBC (3.93-5.22) 10^6/uL Hgb (11.2-15.7) g/dL Hct (36.0-46.0) % MCV (80-95) fL MCH (27.0-33.0) pg MCHC (32.0-36.0) % RDW (11.7-14.6) % Plt Count (130-400) 10^3/uL MPV (8.0-11.0) fL Immature Gran % Neutrophils % Lymphocytes % Monocytes % Eosinophils % Basophils % Nucleated RBC % % Absolute Neutrophils (1.2-6.7) 10^3/uL Absolute Lymphocytes (1.2-3.4) 10^3/uL Absolute Monocytes (0.1-0.8) 10^3/uL Absolute Eosinophils (0.0-0.7) 10^3/uL Absolute Basophils (0.0-0.2) 10^3/uL PT (9.3-11.0) sec 27.4 H INR (0.9-1.1) 2.8 H APTT (21.0-27.5) sec 35.4 H Sodium (136-145) mmol/L 141 Potassium (3.5-5.1) mmol/L 3.1 L Chloride (98-107) mmol/L 104 Carbon Dioxide (21.0-32.0) mmol/L 27.3 Anion Gap (3-11) mmol/L 9.7 BUN (7-18) mg/dL 13 Creatinine (0.55-1.02) mg/dL 0.8 Estimated GFR/1.73 m2 (mL/min/1.73m2) >= 60.00 Glucose (74-106) mg/dL 126 H Calcium (8.5-10.1) mg/dL 8.1 L Magnesium (1.8-2.4) mg/dL 1.4 L Total Bilirubin (0.2-1.0) mg/dL 1.2 H AST (15-37) U/L 62 H ALT (14-59) U/L 30 Alkaline Phosphatase (46-116) U/L 56 Troponin I (<0.06) ng/mL 0.12 H* Total Protein (6.4-8.2) g/dL 5.9 L Albumin (3.4-5.0) g/dL 3.2 L Urine Color (Yellow) Yellow Urine Clarity (Clear) Sl cloudy Urine pH (5-8) 5.5 Ur Specific [place] (1.005-1.025) 1.025 Urine Protein (Negative) mg/dL Trace H Urine Ketones (Negative) mg/dL 15 H Urine Blood (Negative) Large H Urine Nitrite (Negative) Negative Urine Bilirubin (Negative) Negative Urine Urobilinogen (Up TO 0.2) EU/dL 1.0 H Ur Leukocyte Esterase (Negative) Small H Urine RBC (0-2) HPF Negative Urine WBC (0-5) HPF >50 H Ur Epithelial Cells (Negative) HPF Negative Urine Crystals (Negative) HPF Negative Urine Bacteria (Negative) HPF Many Urine Casts (Negative) LPF Negative Urine Mucus (Negative) Negative Urine Other (Negative) Negative Ur Culture Indicated? Yes Urine Glucose (Negative) mg/dL Negative Range/Units 10/21/20 18:55 WBC (4.4-10.8) 10^3/uL 9.44 RBC (3.93-5.22) 10^6/uL 4.60 Hgb (11.2-15.7) g/dL 14.3 Hct (36.0-46.0) % 42.3 MCV (80-95) fL 92.0 MCH (27.0-33.0) pg 31.1 MCHC (32.0-36.0) % 33.8 RDW (11.7-14.6) % 13.7 Plt Count (130-400) 10^3/uL 212 MPV (8.0-11.0) fL 11.0 Immature Gran % 0.4 Neutrophils % 71.4 Lymphocytes % 15.4 Monocytes % 11.9 Eosinophils % 0.2 Basophils % 0.7 Nucleated RBC % % 0 Absolute Neutrophils (1.2-6.7) 10^3/uL 6.74 H Absolute Lymphocytes (1.2-3.4) 10^3/uL 1.45 Absolute Monocytes (0.1-0.8) 10^3/uL 1.12 H Absolute Eosinophils (0.0-0.7) 10^3/uL 0.02 Absolute Basophils (0.0-0.2) 10^3/uL 0.07 PT (9.3-11.0) sec INR (0.9-1.1) APTT (21.0-27.5) sec Sodium (136-145) mmol/L Potassium (3.5-5.1) mmol/L Chloride (98-107) mmol/L Carbon Dioxide (21.0-32.0) mmol/L Anion Gap (3-11) mmol/L BUN (7-18) mg/dL Creatinine (0.55-1.02) mg/dL Estimated GFR/1.73 m2 (mL/min/1.73m2) Glucose (74-106) mg/dL Calcium (8.5-10.1) mg/dL Magnesium (1.8-2.4) mg/dL Total Bilirubin (0.2-1.0) mg/dL AST (15-37) U/L ALT (14-59) U/L Alkaline Phosphatase (46-116) U/L Troponin I (<0.06) ng/mL Total Protein (6.4-8.2) g/dL Albumin (3.4-5.0) g/dL Urine Color (Yellow) Urine Clarity (Clear) Urine pH (5-8) Ur Specific [place] (1.005-1.025) Urine Protein (Negative) mg/dL Urine Ketones (Negative) mg/dL Urine Blood (Negative) Urine Nitrite (Negative) Urine Bilirubin (Negative) Urine Urobilinogen (Up TO 0.2) EU/dL Ur Leukocyte Esterase (Negative) Urine RBC (0-2) HPF Urine WBC (0-5) HPF Ur Epithelial Cells (Negative) HPF Urine Crystals (Negative) HPF Urine Bacteria (Negative) HPF Urine Casts (Negative) LPF Urine Mucus (Negative) Urine Other (Negative) Ur Culture Indicated? Urine Glucose (Negative) mg/dL ECG Data Attestation: I personally reviewed and interpreted this ECG (s) as follows: Interpretation: Rate of 101, sinus, multiple premature complexes, supraventricular. Less than [address] depression in V5 V6. No STEMI. <Killian Ponce MD - Last Filed: 10/22/20 06:03> Pt's ct shows pleural effusions and also pericardial effusion, no hypotension and on bedside u/s no evidence of tamponade or collapse of rv. She remains hemodynamically stable, alert and oriented to name but is not sure of time of day or year or what town she is in. Suspect type 2 nstemi given lack of chest pain and likely related to her rhabdo and uti, discussed with Dr. Smith who accepts for admission Lab Data Lab results reviewed: Yes I reviewed the patient's lab results. ECG Data Attestation: I personally reviewed and interpreted this ECG (s) as follows: Prior ECG tracings: available for review Interpretation: compared to 1st ekg no acute st t wave ischemic findings, sinus rhythm, rate of 83, pr 171 HPI <Natalia Choi DO - Last Filed: 10/25/20 07:51> General Mode of arrival: EMS . Date/Time Provider Initiated Documentation: 10/21/20 18:07 . Limitations to Documentation: physical limitation . Information obtained by: patient . HPI Narrative: Patient is an 85-year-old female with a history of atrial fibrillation on Coumadin, diabetes, GERD, hypertension, hyperlipidemia, polymyalgia rheumatica chronically on steroids presents for possible syncopal episode and fall at home today. Patient does not recall any of the events of today. She states she had her second Covid shot yesterday. She states she has been feeling off balance with walking since yesterday. She does not recall falling today. She is endorsing bilateral hip and lower back pain. She is unsure if she hit her head. She denies any fever, headache, neck pain, chest pain, shortness of breath, abdominal pain. She states she lives alone and has been feeling well up until yesterday. Related Data Home Medications Medication Instructions Recorded Confirmed atorvastatin 20 mg PO QAM tab-cap 02/24/15 10/21/20 dofetilide [Tikosyn] 125 mcg PO BID 02/24/15 10/21/20 gabapentin 100 mg PO TID 02/24/15 10/21/20 losartan 100 mg PO QAM tab-cap 02/24/15 10/21/20 prednisone 5 mg PO QAM tab-cap 02/24/15 10/21/20 furosemide 20 mg tablet 10 mg PO DAILY 05/22/18 10/21/20 omeprazole 20 mg capsule,delayed 40 mg PO HS 05/22/18 10/21/20 release warfarin 2.5 mg tablet 5 mg PO DIRECTED tab-cap 05/22/18 10/21/20 potassium chloride 10 mEq 20 meq PO BID #360 tab-cap 09/29/18 10/21/20 tablet,extended release magnesium L-lactate 84 mg 252 mg PO BID #180 tab-cap 12/16/18 05/29/20 tablet,extended release metoprolol succinate 50 mg PO DAILY 09/09/19 10/21/20 terazosin 2 mg PO BID 09/09/19 10/21/20 acetaminophen 1,000 mg PO Q8H PRN #90 tab 09/17/19 10/21/20 mirabegron 50 mg tablet,extended 50 mg PO DAILY #90 tab-cap 02/09/20 10/21/20 release 24 hr tramadol 25 mg PO DAILY PRN 10/21/20 10/21/20 cephalexin 500 mg PO Q12H #8 tab 10/23/20 Previous Rx's Medication Instructions Recorded potassium chloride 10 mEq 20 meq PO BID #360 tab-cap 09/29/18 tablet,extended release magnesium L-lactate 84 mg 252 mg PO BID #180 tab-cap 12/16/18 tablet,extended release acetaminophen 1,000 mg PO Q8H PRN #90 tab 09/17/19 mirabegron 50 mg tablet,extended 50 mg PO DAILY #90 tab-cap 02/09/20 release 24 hr cephalexin 500 mg PO Q12H #8 tab 10/23/20 Allergies Allergy/AdvReac Type Severity Reaction Status Date / Time propranolol Allergy Intermediate Verified 10/21/20 18:07 codeine Allergy Mild Verified 10/21/20 18:07 metformin Allergy Mild Verified 10/21/20 18:07 Penicillins Allergy Unknown Verified 10/21/20 18:07 DIVINE Inhibitors AdvReac Unknown Verified 10/21/20 18:07 General Stated Complaint: Dizzy/Sync CAROLE: 3 Review of Systems <Natalia Choi DO - Last Filed: 10/25/20 07:51> All systems reviewed & are unremarkable except as noted in HPI and below Constitutional Constitutional: Reports as per HPI, Denies chills and Denies fever(s) Eyes Eyes: Denies blurry vision ENT Ears, Nose, Mouth, and Throat: Denies dizziness, Denies sore throat and Denies throat swelling Cardiovascular Cardiovascular: Denies chest pain and Denies dyspnea Respiratory Respiratory: Denies cough and Denies dyspnea Gastrointestinal Gastrointestinal: Denies abdominal pain, Denies diarrhea and Denies vomiting Genitourinary Genitourinary: Denies hematuria and Denies dysuria Musculoskeletal Musculoskeletal: Reports back pain, Denies numbness and Reports other (b/l hip pain) Integumentary/Breasts Skin/Breast: Denies lesions and Denies rash Neurologic Neurologic: Denies dizziness, Denies localized weakness and Denies numbness Allergic/Immunologic Allergic/Immunologic: Denies throat swelling PFSH <Natalia Choi DO - Last Filed: 10/25/20 07:51> Medical History Adenomatous colon polyp Allergic rhinitis Anticoagulated Atrial fibrillation f/u WITH DR. CASON 09/08/19 Black stools Chronic diarrhea Chronic diarrhea Cystocele with rectocele Deafness in left ear Diabetes mellitus Diverticulosis Esophageal stricture GERD (gastroesophageal reflux disease) H. pylori infection History of adenomatous polyp of colon Hyperlipidemia Hypertension Lumbar back pain Meningioma Osteoarthritis Polymyalgia rheumatica Rectocele Right hip pain Skin cancer of nose Traumatic wound Ulcer of right leg 04/26/19 referral from Anabelle Cason - injured on sharp piece of wheelchair 3-4 weeks ago. Seen in ER, antibx not finished due to diarrhea. Not healing. 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) Incision & Drainage, Abscess or Hematoma R leg Social History Smoking/Tobacco Use Status: Never Smoking risk assessment performed?: Yes Alcohol Intake: current Drug use: Never Substance use type: does not use Current gender identity: female Do you feel safe at home: Yes Do you feel safe in your relationship?: Yes Exam <Natalia Choi DO - Last Filed: 10/25/20 07:51> Const General: cooperative, healthy appearing and no acute distress Orientation: alert, awake, oriented to person, oriented to place and oriented to time (stated initially 1920, then 2020) HENMT Head: normal to inspection Ears: hearing grossly normal bilaterally, external ears normal and TM's normal bilaterally General nose exam: external nose normal Face and sinus: normal facial exam Mouth: oral mucosae normal Teeth and gingiva: dentition normal Throat: posterior oropharynx normal Eyes General: appearance normal, both eyes and all related structures Eyelids: eyelids normal Pupils: PERRL EOM: EOM intact bilaterally Neck Neck: normal visual inspection Lymphatic: no lymphadenopathy noted Chest Chest: normal inspection of the chest and tenderness (Anterior chest wall, no evidence of trauma) Resp Effort & Inspection: normal respiratory effort and able to speak in complete sentences Auscultation: clear to auscultation bilaterally Cardio Rate: regular rate Rhythm: regular rhythm GI Inspection: normal to inspection Palpation: soft, not firm, no guarding, no hepatosplenomegaly, no masses and tender in the LLQ and in the RLQ Auscultation: hypoactive bowel sounds Skin General skin exam: no rashes or lesions noted Neuro General: patient alert, patient awake and oriented Patient Orientation: Person and Place Cranial Nerves: CN's II-XI intact bilaterally Cognition: normal cognition Speech: speech normal Motor: muscle tone normal throughout and strength 5/5 throughout Sensory Exam: no sensory deficits noted Extrem Other: Pain in bilateral hips with range of motion, worse on left. No orthopedic deformity noted. No lower extremity shortening or external rotation. No pain with range of motion or tenderness to palpation of bilateral upper extremities. Psych Appearance: grossly normal Mental Status: mental status grossly normal Speech and Movement: speech and movement normal Affect: normal affect Thought Process: normal Course <Natalia Choi DO - Last Filed: 10/25/20 07:51> Vital Signs Vital signs: Vital Signs Temperature 98.3 F 10/21/20 17:55 Pulse 87 10/21/20 17:55 Respiratory Rate 20 10/21/20 17:55 Blood Pressure 130/48 L 10/21/20 17:55 Pulse Oximetry 96 10/21/20 17:55 Temperature 98.3 F 10/21/20 17:55 Temperature Source Oral 10/21/20 17:55 Pulse 87 10/21/20 17:55 Respiratory Rate 20 10/21/20 18:03 Respiratory Effort Non-Labored 10/21/20 18:03 Respiratory Depth Normal 10/21/20 18:03 Respiratory Pattern Normal 10/21/20 18:03 Blood Pressure 130/48 L 10/21/20 17:55 Blood Pressure Position Supine 10/21/20 17:55 Pulse Oximetry 96 10/21/20 17:55 Oxygen Delivery Method Room Air 10/21/20 17:55 Oxygen Flow Rate 0 10/21/20 17:55 Pain Level 10 10/21/20 17:55 Sign Out <Natalia Choi DO - Last Filed: 10/25/20 07:51> Sign Out Data: Sign Out Comment: Follow-up on CT imaging and repeat troponin. If uptrending, consult cardiology at [facility] for recommendations and potential transfer. If stable or downtrending, suspect demand ischemia and admit for IV fluids, IV antibiotics for UTI, pain control and observation. Last updated by Natalia Choi DO at 10/21/20 20:00
[2020-10-21 19:00] LABS: Abs Immature Grans 0.04 10^3/uL (0.0-0.06); Absolute Basophil Count 0.07 10^3/uL (0.0-0.2); Absolute Eosinophil Count 0.02 10^3/uL (0.0-0.7); Absolute Lymphocyte Count 1.45 10^3/uL (1.2-3.4); Absolute Monocyte Count 1.12 10^3/uL (0.1-0.8); Absolute Neutrophil Count 6.74 10^3/uL (1.2-6.7); Basophils % 0.7; Eosinophils % 0.2; HCT 42.3 % (36.0-46.0); HGB 14.3 g/dL (11.2-15.7); Immature Grans % 0.4; Lymphocytes % 15.4; MCH 31.1 pg (27.0-33.0); MCHC 33.8 % (32.0-36.0); Monocytes % 11.9; Neutrophils % 71.4; Nucleated RBC 0 %; Platelet Count 212 10^3/uL (130-400); RDW 13.7 % (11.7-14.6); RDW-SD 46.8 fL; WBC 9.44 10^3/uL (4.4-10.8)
[2020-10-21 19:00] LABS: Bilirubin Negative (Negative); Blood Large (Negative); Clarity Sl Cloudy (Clear); Glucose Negative (Negative); Ketones 15 mg/dL (Negative); Leukocyte Esterase Small (Negative); Nitrite Negative (Negative); Specific Gravity 1.025 (1.005-1.025); pH 5.5 (5-8)
[2020-10-21] MEDS: Omnipaque 350 MG/ML 100 ML BTL IJ (19:05)
[2020-10-21] MEDS: Normal Saline - Diluent 50 ML VIAL IV (19:06)
[2020-10-21 19:18] LABS: ALT 30 U/L (14-59); AST 62 U/L (15-37); Albumin 3.2 g/dL (3.4-5.0); Alkaline Phosphatase 56 U/L (46-116); Anion Gap 9.7 mmol/L (3-11); BUN 13 mg/dL (7-18); Bilirubin, Total 1.2 mg/dL (0.2-1.0); CO2 27.3 mmol/L (21.0-32.0); CREATININE 0.8 mg/dL (0.55-1.02); Calcium 8.1 mg/dL (8.5-10.1); Chloride 104 mmol/L (98-107); Glucose 126 mg/dL (74-106); Magnesium 1.4 mg/dL (1.8-2.4); Potassium 3.1 mmol/L (3.5-5.1); Sodium 141 mmol/L (136-145); Total Protein 5.9 g/dL (6.4-8.2)
[2020-10-21 19:20] LABS: Bacteria Many HPF (Negative); C & S Indicated? Yes; Casts Negative LPF (Negative); Crystals Negative HPF (Negative); Epithelial Cells Negative HPF (Negative); Mucus Negative (Negative); Other Cells Negative (Negative); RBC Negative HPF (0-2); WBC >50 HPF (0-5)
[2020-10-21 19:23] LABS: INR 2.8 (0.9-1.1); PTT Activated 35.4 sec (21.0-27.5); Prothrombin Time 27.4 sec (9.3-11.0)
[2020-10-21 19:27] LABS: Troponin I 0.12 ng/mL (<0.06)
--- NOTE | 2020-10-21 19:40 | DI.VRAD_ITS ---
PROCEDURE INFORMATION: Exam: CT Head Without Contrast Exam date and time: 10/21/2020 19:07 Age: 85 years old Clinical indication: Injury or trauma; Fall; Blunt trauma (contusions or hematomas); Consciousness not specified; Injury date: 10/21/20 TECHNIQUE: Imaging protocol: Computed tomography of the head without contrast. Radiation optimization: All CT scans at this facility use at least one of these dose optimization techniques: automated exposure control; mA and/or kV adjustment per patient size (includes targeted exams where dose is matched to clinical indication); or iterative reconstruction. COMPARISON: CT HEAD WO/W 02/07/2020 13:56 FINDINGS: Brain: Moderate cerebral atrophy. Moderate periventricular white matter hypodensity. No edema or hemorrhage. Cerebral ventricles: No ventriculomegaly. Bones/joints: Prominent eccentric calcification is partially seen in the upper spinal canal, approximately 15 mm, at the level of C1 and is stable compared to the previous study. Could be worked up with MRI if clinically indicated. Paranasal sinuses: No acute sinusitis. Mastoid air cells: No mastoid effusion. Soft tissues: Mild parietal scalp swelling, left greater than right. No cephalohematoma. IMPRESSION: 1. No acute intracranial findings. 2. Mild parietal scalp swelling, left greater than right. No cephalohematoma. PROCEDURE INFORMATION: Exam: CT Cervical Spine Without Contrast Exam date and time: 10/21/2020 19:07 Age: 85 years old Clinical indication: Injury or trauma; Fall; Blunt trauma (contusions or hematomas); Consciousness not specified; Injury date: 10/21/20 TECHNIQUE: Imaging protocol: Computed tomography images of the cervical spine without contrast. Radiation optimization: All CT scans at this facility use at least one of these dose optimization techniques: automated exposure control; mA and/or kV adjustment per patient size (includes targeted exams where dose is matched to clinical indication); or iterative reconstruction. COMPARISON: CT HEAD WO/W 02/07/2020 13:56 FINDINGS: Bones/joints: Chronic appearing severe reversal of the normal lordosis. A chronic appearing mild anterolisthesis of C1 relative to C2. Significant multilevel uncovertebral hypertrophy and partial ankylosis. Laminectomies, C2 and C3. Multilevel disc space narrowing. The bones are demineralized. Temporomandibular joint degenerative changes appear chronic. Discs/Spinal canal/Neural foramina: A 16 mm slightly calcified most likely structure right upper spinal canal at the level of C1 was present on the previous CT head and appears chronic. May represent sequela of prior trauma, surgery, disc fragment, and could be worked up with MRI if clinically indicated. Multilevel neural foraminal stenosis without ruben central canal stenosis. Lungs: No consolidation. Vasculature: Atherosclerosis. Soft tissues: No suspicious lesions. IMPRESSION: 1. No cervical spine fracture. 2. Additional findings as described. Dictated and Authenticated by: Elham Aviles MD. Ordering:TRICIA Fisher MD
[2020-10-21] MEDS: ACETAMINOPHEN 1,000 MG/100 ML BTL 400 MG IVPB (19:47)
[2020-10-21] MEDS: Normal Saline 500 ML IV (19:48)
--- NOTE | 2020-10-21 20:01 | DI.VRAD_ITS ---
PROCEDURE INFORMATION: Exam: CT Angiography Chest With Contrast Exam date and time: 10/21/2020 6:39 PM Age: 85 years old Clinical indication: Other: S/P fall syncopal episode; Patient HX: ? Hip FX as well. TECHNIQUE: Imaging protocol: Computed tomographic angiography of the chest with contrast. 3D rendering (Not supervised by radiologist): MIP and/or 3D reconstructed images were created by the technologist. Radiation optimization: All CT scans at this facility use at least one of these dose optimization techniques: automated exposure control; mA and/or kV adjustment per patient size (includes targeted exams where dose is matched to clinical indication); or iterative reconstruction. Contrast material: OMNIPAQUE 350; Contrast volume: 100 ml; Contrast route: INTRAVENOUS (IV); COMPARISON: No relevant prior studies available. FINDINGS: Pulmonary arteries: Normal. No pulmonary emboli. Aorta: The aorta demonstrates moderate atherosclerotic calcification. Lungs: Unremarkable. No consolidation. No masses. Pleural spaces: Unremarkable. No pneumothorax. No pleural effusion. Heart: There is a moderate size pericardial effusion. Lymph nodes: Unremarkable. No enlarged lymph nodes. Bones/joints: Unremarkable. No acute fracture. Soft tissues: Unremarkable. IMPRESSION: 1. Moderate pericardial effusion. 2. No evidence of pulmonary embolism. PROCEDURE INFORMATION: Exam: CT Angiography Abdomen With Contrast Exam date and time: 10/21/2020 6:39 PM Age: 85 years old Clinical indication: Other: S/P fall syncopal episode; Patient HX: ? Hip FX as well. TECHNIQUE: Imaging protocol: Computed tomographic angiography images of the abdomen with intravenous contrast material. 3D rendering (Not supervised by radiologist): MIP and/or 3D reconstructed images were created by the technologist. Radiation optimization: All CT scans at this facility use at least one of these dose optimization techniques: automated exposure control; mA and/or kV adjustment per patient size (includes targeted exams where dose is matched to clinical indication); or iterative reconstruction. Contrast material: OMNIPAQUE 350; Contrast route: INTRAVENOUS (IV); COMPARISON: No relevant prior studies available. FINDINGS: Aorta: No aortic aneurysm. No aortic dissection. The aorta demonstrates moderate atherosclerotic calcification. Celiac trunk and mesenteric arteries: No occlusion or significant stenosis. Renal arteries: No occlusion or significant stenosis. Liver: Normal. No mass. Gallbladder and bile ducts: The gallbladder is surgically absent. Intrahepatic and extrahepatic bile duct dilatation is present. Pancreas: Normal. No ductal dilation. Spleen: Normal. No splenomegaly. Adrenals: Normal. No mass. Kidneys and ureters: Multiple bilateral simple renal cysts are present with the largest measuring 4.5 cm in diameter on the left. Stomach and bowel: Diverticulosis of the colon is present. Lymph nodes: Unremarkable. No enlarged lymph nodes. Intraperitoneal space: Unremarkable. No free air. No significant fluid collection. Bones/joints: The patient is status post a right total hip arthroplasty. Chronic degenerative changes of the spine are present. Chronic degenerative changes of the left hip are present. Soft tissues: Unremarkable. IMPRESSION: 1. Status post cholecystectomy, with intrahepatic and extrahepatic bile duct dilatation. 2. Multiple bilateral simple renal cysts. 3. Diverticulosis. 4. Status post right total hip arthroplasty. 5. Chronic degenerative changes of the spine and left hip. 6. Extensive atherosclerotic plaque without significant major arterial obstruction or aneurysm. Dictated and Authenticated by: Martin Escobedo MD. Ordering:TRICIA Fisher MD
--- NOTE | 2020-10-21 20:12 | DI.VRAD_ITS ---
PROCEDURE INFORMATION: Exam: CT Thoracic Spine Without Contrast Exam date and time: 10/21/2020 6:39 PM Age: 85 years old Clinical indication: Injury or trauma; Fall; Blunt trauma (contusions or hematomas); Injury date: 10/21/20; Additional info: Reconstructions from pe abd/pel. TECHNIQUE: Imaging protocol: Computed tomography images of the thoracic spine without contrast. Radiation optimization: All CT scans at this facility use at least one of these dose optimization techniques: automated exposure control; mA and/or kV adjustment per patient size (includes targeted exams where dose is matched to clinical indication); or iterative reconstruction. COMPARISON: No relevant prior studies available. FINDINGS: Vertebrae: The thoracic vertebrae appear normal in height with diffuse osteopenia. Moderate spondylosis is present with multilevel degenerative disc disease. Schmorl's nodes are seen at the inferior endplate of T11. Discs/Spinal canal/Neural foramina: Vacuum disc phenomenon is seen at T11-12 and T12-L1. Soft tissues: Unremarkable. Vasculature: There is a convex right thoracic curvature.The aorta demonstrates moderate atherosclerotic calcification. IMPRESSION: 1. Diffuse osteopenia. 2. Moderate thoracic spondylosis and degenerative disc disease with prominent Schmorl's nodes seen at the inferior endplate of T11. 3. Convex right thoracic curvature. PROCEDURE INFORMATION: Exam: CT Lumbar Spine Without Contrast Exam date and time: 10/21/2020 6:39 PM Age: 85 years old Clinical indication: Injury or trauma; Fall; Blunt trauma (contusions or hematomas); Injury date: 10/21/20; Additional info: Reconstructions from pe abd/pel. TECHNIQUE: Imaging protocol: Computed tomography images of the lumbar spine without contrast. Radiation optimization: All CT scans at this facility use at least one of these dose optimization techniques: automated exposure control; mA and/or kV adjustment per patient size (includes targeted exams where dose is matched to clinical indication); or iterative reconstruction. COMPARISON: No relevant prior studies available. FINDINGS: Vertebrae: The lumbar vertebrae appear normal in height and alignment. Diffuse osteopenia is present. Multilevel facet joint hypertrophy is present. There is a convex left lumbar curvature. Discs/Spinal canal/Neural foramina: Multilevel disc bulge is noted with no ruben spinal stenosis. Kidneys and ureters: Multiple bilateral simple renal cysts are present. Vasculature: The aorta demonstrates moderate atherosclerotic calcification. Soft tissues: Unremarkable. IMPRESSION: 1. Diffuse osteopenia. 2. Mild lumbar spondylosis primarily involving facet joint hypertrophy. 3. Degenerative disc disease with vacuum disc phenomenon is seen at T12-L1. 4. Convex left lumbar curvature. 5. Multiple bilateral simple renal cysts. Dictated and Authenticated by: Martin Escobedo MD. Ordering:TRICIA Fisher MD
--- NOTE | 2020-10-21 21:15 | RT.EKG_ITS ---
APPROVED REPORT Exam: Resting ECG Patient Location: E HR:83 bpm ECG Measurements Heart Rate 83 AXIS MA 171 P 51 QRSd 80 QRS -17 QT 436 T 8 QTc 511 Conclusion Sinus rhythm...normal P axis, V-rate 60- 99 Atrial premature complex...SV complex w/ short R-R interval Probable left atrial enlargement...P >50mS, <-0.10mV V1 Prolonged QT interval...QTc >500mS
[2020-10-21] MEDS: Potassium Chloride 20 MEQ TABCR 40 MEQ PO (21:20)
[2020-10-21 21:53] LABS: Troponin I 0.12 ng/mL (<0.06)
[2020-10-21] MEDS: Gentamicin 20 MG/2 ML VIAL 5 MG IVP (21:58)
[2020-10-21 21:59] LABS: Creatine Kinase 2565 U/L (26-192)
[2020-10-21] MEDS: MAGNESIUM SULFATE 2 GM/50 ML BAG IVPB (22:12)
[2020-10-21] MEDS: DEXTROSE 5%-WATER 250 ML (22:14)
[2020-10-21 22:20] LABS: NT-proBNP 2992 pg/mL (<300)
--- NOTE | 2020-10-21 22:52 | W.PM.HP.N ---
Date of service: 10/21/20 Time of Service: 22:52 Assessment and Plan Assessment and plan (1) Syncope: Start date: 10/21/20 Status: Acute Assessment and plan: This is an 85-year-old lady with syncopal event at home and time down with some rhabdomyolysis. She will need IV hydration and monitoring being on Coumadin and at risk for bleeding with no evidence of acute bleeding with fall. 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 She did also have a UTI found in the ED and this will be treated with appropriate antibiotics with gentamicin dose given in the ED. She does live alone and needs PT and OT and reevaluation of home services prior to discharge. Qualifiers: Syncope type: unspecified Qualified Code(s): R55 - Syncope and collapse (2) Rhabdomyolysis: Start date: 10/21/20 Status: Acute Assessment and plan: Elevation of CPK with patient having a history of CAD with no previous echocardiogram available. Gentle IV hydration and trend CPKs. Qualifiers: Encounter type: initial encounter Rhabdomyolysis type: traumatic Qualified Code(s): T79.6XXA - Traumatic ischemia of muscle, initial encounter (3) NSTEMI (non-ST elevated myocardial infarction): Start date: 10/21/20 Status: Acute Assessment and plan: Patient has no cardiac symptoms but history of CAD and atrial fibrillation on Coumadin. This appears to be a type II non-STEMI secondary to strain from event and we will trend troponins. Consider updated echocardiogram and consider consultation with cardiology if troponins increase. Continue cardiac monitoring. (4) Atrial fibrillation: Status: Chronic Assessment and plan: Controlled rate with continuation of medications holding Coumadin for now while observing for bleeding from trauma. Consider Eliquis long-term. Qualifiers: Atrial fibrillation type: paroxysmal Qualified Code(s): I48.0 - Paroxysmal atrial fibrillation (5) Diabetes type 2, controlled: Status: Chronic Assessment and plan: Monitor with before meals and at bedtime short acting insulin coverage. Hold usual medications, oral hypoglycemic for now. Qualifiers: Diabetes mellitus complication status: without complication Diabetes mellitus senior care insulin use: without senior care use Qualified Code(s): E11.9 - Type 2 diabetes mellitus without complications (6) UTI (urinary tract infection): Start date: 10/21/20 Status: Acute Assessment and plan: Consider initiation of cephalosporins despite patient's allergies to penicillin with 1 dose of gentamicin given in the ED. Follow-up on culture and adjust medical therapy accordingly. Qualifiers: Hematuria presence: without hematuria Urinary tract infection type: site unspecified Qualified Code(s): N39.0 - Urinary tract infection, site not specified (7) Polymyalgia rheumatica: Status: Chronic Assessment and plan: Patient is currently on steroids and had slightly low blood pressure with less elevation in glucose than expected with trauma. Stress steroids IV for now and continue before meals and at bedtime insulin coverage History of Present Illness History of Present Illness Chief Complaint: Syncopal episode with mild dementia progressing. Narrative: This is an 85-year-old lady who lives alone in senior apartments and was found by her grandson with an unknown amount of time down but having urine and fecal material around her but no vomitus. The patient does not remember the event. She was brought to the ED for evaluation and had various areas of discomfort over her hips and back with negative imaging. She is on Coumadin chronically for atrial fibrillation and does have a history of CAD. Her troponins were slightly elevated and trending downward upon admission with a delta troponin still positive but not increased. Patient had no complaints of palpitations or chest discomfort. She had no complaints of focal neurological deficits and had no headache. She does have mild dementia which is progressive according to the grandson who is a close family member checking on her quite often. Patient is on prednisone chronically for PMR and did have hypotension though she is on antihypertensives as an outpatient with her glucose not as elevated as expected with her trauma. She will be given stress steroids while in the hospital. Because of her fall and unknown time down her CPK was checked and was elevated and will be treated for rhabdomyolysis with gentle IV hydration with her heart disease appearing stable. At the time I saw the patient she was comfortable with mild confusion which may be her baseline. Review of Systems Narrative: 13 point review of systems otherwise unrevealing or stable. PENDING SALE TO [facility] Medical History Adenomatous colon polyp Allergic rhinitis Anticoagulated Atrial fibrillation f/u WITH DR. CASON 09/08/19 Black stools Chronic diarrhea Chronic diarrhea Cystocele with rectocele Deafness in left ear Diabetes mellitus Diverticulosis Esophageal stricture GERD (gastroesophageal reflux disease) H. pylori infection History of adenomatous polyp of colon Hyperlipidemia Hypertension Lumbar back pain Meningioma Osteoarthritis Polymyalgia rheumatica Rectocele Right hip pain Skin cancer of nose Traumatic wound Ulcer of right leg 04/26/19 referral from [facility] - injured on sharp piece of wheelchair 3-4 weeks ago. Seen in ER, antibx not finished due to diarrhea. Not healing. 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) Incision & Drainage, Abscess or Hematoma R leg Social History Smoking/Tobacco Use Status: Never Smoking risk assessment performed?: Yes Alcohol Intake: current Drug use: Never Substance use type: does not use Current gender identity: female Do you feel safe at home: Yes Do you feel safe in your relationship?: Yes Meds Home Medications and Allergies Allergies Allergy/AdvReac Type Severity Reaction Status Date / Time propranolol Allergy Intermediate Verified 10/21/20 18:07 codeine Allergy Mild Verified 10/21/20 18:07 metformin Allergy Mild Verified 10/21/20 18:07 Penicillins Allergy Unknown Verified 10/21/20 18:07 DIVINE Inhibitors AdvReac Unknown Verified 10/21/20 18:07 Home Medications Medication Instructions Recorded Confirmed Type atorvastatin 20 mg PO QAM tab-cap 02/24/15 10/21/20 History dofetilide [Tikosyn] 125 mcg PO BID 02/24/15 10/21/20 History gabapentin 100 mg PO TID 02/24/15 10/21/20 History glipizide 2.5 mg PO QAM 02/24/15 10/21/20 History losartan 100 mg PO QAM tab-cap 02/24/15 10/21/20 History prednisone 5 mg PO QAM tab-cap 02/24/15 10/21/20 History furosemide 20 mg tablet 10 mg PO DAILY 05/22/18 10/21/20 History omeprazole 20 mg capsule,delayed 40 mg PO HS 05/22/18 10/21/20 History release warfarin 2.5 mg tablet 5 mg PO DIRECTED tab-cap 05/22/18 10/21/20 History potassium chloride 10 mEq 20 meq PO BID #360 tab-cap 09/29/18 10/21/20 Rx tablet,extended release magnesium L-lactate 84 mg 252 mg PO BID #180 tab-cap 12/16/18 05/29/20 Rx tablet,extended release metoprolol succinate 50 mg PO DAILY 09/09/19 10/21/20 History terazosin 2 mg PO BID 09/09/19 10/21/20 History acetaminophen 1,000 mg PO Q8H PRN #90 tab 09/17/19 10/21/20 Rx mirabegron 50 mg tablet,extended 50 mg PO DAILY #90 tab-cap 02/09/20 10/21/20 Rx release 24 hr tramadol 25 mg PO DAILY PRN 10/21/20 10/21/20 History Exam Narrative Exam Narrative: General: Patient appears appropriate for age, in no acute distress but mildly confused which appears to be baseline. She is alert and oriented at least to person and place. She has no memory of her syncopal event. HEENT: Normocephalic, eyes with pupils equal and reactive to light symmetrically, extraocular movement intact and sclera anicteric. Oropharynx with moist mucosa. Neck: Supple without JVD. No auscultated bruits or transmitted murmurs into the carotids. Back: Kyphotic, tender to palpation of the mid thoracic and lumbar spine with no bruising and fair range of motion. No CVA tenderness. Lungs: Clear to all station percussion. Heart: Irregular irregular rhythm with 4/6 systolic murmur left sternal border. No rubs or gallops. Breast: Exam deferred. Abdomen: Normal contour, soft and nontender to palpation with no palpable hepatosplenomegaly. Genitalia/rectal: Exam deferred. Extremities: Without clubbing, cyanosis or pitting edema. Joints are arthritic with decreased range of motion but no swelling. Hips have fair range of motion. Skin: Normal color, warm and dry. Decreased turgor with no obvious bruising with exam partial and patient not undressed. Rough texture over sun exposed areas. Neuro: Cranial nerves II through XII grossly intact, no focalizing motor deficits. No tremor. Psych: Normal mood and affect, no abnormal thought processes. Remote memory grossly intact and recent memory less intact. Patient does remember that she lives alone in a senior apartment. She has no memory of her event. Results Imaging Imaging Studies: Exam: CT Thoracic Spine Without Contrast Exam date and time: 10/21/2020 6:39 PM Age: 85 years old Clinical indication: Injury or trauma; Fall; Blunt trauma (contusions or hematomas); Injury date: 10/21/20; Additional info: Reconstructions from pe abd/pel. COMPARISON: No relevant prior studies available. FINDINGS: Vertebrae: The thoracic vertebrae appear normal in height with diffuse osteopenia. Moderate spondylosis is present with multilevel degenerative disc disease. Schmorl's nodes are seen at the inferior endplate of T11. Discs/Spinal canal/Neural foramina: Vacuum disc phenomenon is seen at T11-12 and T12-L1. Soft tissues: Unremarkable. Vasculature: There is a convex right thoracic curvature.The aorta demonstrates moderate atherosclerotic calcification. IMPRESSION: 1. Diffuse osteopenia. 2. Moderate thoracic spondylosis and degenerative disc disease with prominent Schmorl's nodes seen at the inferior endplate of T11. 3. Convex right thoracic curvature. Exam: CT Angiography Chest With Contrast Exam date and time: 10/21/2020 6:39 PM Age: 85 years old Clinical indication: Other: S/P fall syncopal episode; Patient HX: ? Hip FX as well. COMPARISON: No relevant prior studies available. FINDINGS: Pulmonary arteries: Normal. No pulmonary emboli. Aorta: The aorta demonstrates moderate atherosclerotic calcification. Lungs: Unremarkable. No consolidation. No masses. Pleural spaces: Unremarkable. No pneumothorax. No pleural effusion. Heart: There is a moderate size pericardial effusion. Lymph nodes: Unremarkable. No enlarged lymph nodes. Bones/joints: Unremarkable. No acute fracture. Soft tissues: Unremarkable. IMPRESSION: 1. Moderate pericardial effusion. 2. No evidence of pulmonary embolism. PROCEDURE INFORMATION: Exam: CT Angiography Abdomen With Contrast Exam date and time: 10/21/2020 6:39 PM Age: 85 years old Clinical indication: Other: S/P fall syncopal episode; Patient HX: ? Hip FX as well. COMPARISON: No relevant prior studies available. FINDINGS: Aorta: No aortic aneurysm. No aortic dissection. The aorta demonstrates moderate atherosclerotic calcification. Celiac trunk and mesenteric arteries: No occlusion or significant stenosis. Renal arteries: No occlusion or significant stenosis. Liver: Normal. No mass. Gallbladder and bile ducts: The gallbladder is surgically absent. Intrahepatic and extrahepatic bile duct dilatation is present. Pancreas: Normal. No ductal dilation. Spleen: Normal. No splenomegaly. Adrenals: Normal. No mass. Kidneys and ureters: Multiple bilateral simple renal cysts are present with the largest measuring 4.5 cm in diameter on the left. Stomach and bowel: Diverticulosis of the colon is present. Lymph nodes: Unremarkable. No enlarged lymph nodes. Intraperitoneal space: Unremarkable. No free air. No significant fluid collection. Bones/joints: The patient is status post a right total hip arthroplasty. Chronic degenerative changes of the spine are present. Chronic degenerative changes of the left hip are present. Soft tissues: Unremarkable. IMPRESSION: 1. Status post cholecystectomy, with intrahepatic and extrahepatic bile duct dilatation. 2. Multiple bilateral simple renal cysts. 3. Diverticulosis. 4. Status post right total hip arthroplasty. 5. Chronic degenerative changes of the spine and left hip. 6. Extensive atherosclerotic plaque without significant major arterial obstruction or aneurysm. PROCEDURE INFORMATION: Exam: CT Head Without Contrast Exam date and time: 10/21/2020 19:07 Age: 85 years old Clinical indication: Injury or trauma; Fall; Blunt trauma (contusions or hematomas); Consciousness not specified; Injury date: 10/21/20 TECHNIQUE: Imaging protocol: Computed tomography of the head without contrast. Radiation optimization: All CT scans at this facility use at least one of these dose optimization techniques: automated exposure control; mA and/or kV adjustment per patient size (includes targeted exams where dose is matched to clinical indication); or iterative reconstruction. COMPARISON: CT HEAD WO/W 02/07/2020 13:56 FINDINGS: Brain: Moderate cerebral atrophy. Moderate periventricular white matter hypodensity. No edema or hemorrhage. Cerebral ventricles: No ventriculomegaly. Bones/joints: Prominent eccentric calcification is partially seen in the upper spinal canal, approximately 15 mm, at the level of C1 and is stable compared to the previous study. Could be worked up with MRI if clinically indicated. Paranasal sinuses: No acute sinusitis. Mastoid air cells: No mastoid effusion. Soft tissues: Mild parietal scalp swelling, left greater than right. No cephalohematoma. IMPRESSION: 1. No acute intracranial findings. 2. Mild parietal scalp swelling, left greater than right. No cephalohematoma. PROCEDURE INFORMATION: Exam: CT Cervical Spine Without Contrast Exam date and time: 10/21/2020 19:07 Age: 85 years old Clinical indication: Injury or trauma; Fall; Blunt trauma (contusions or hematomas); Consciousness not specified; Injury date: 10/21/20 COMPARISON: CT HEAD WO/W 02/07/2020 13:56 FINDINGS: Bones/joints: Chronic appearing severe reversal of the normal lordosis. A chronic appearing mild anterolisthesis of C1 relative to C2. Significant multilevel uncovertebral hypertrophy and partial ankylosis. Laminectomies, C2 and C3. Multilevel disc space narrowing. The bones are demineralized. Temporomandibular joint degenerative changes appear chronic. Discs/Spinal canal/Neural foramina: A 16 mm slightly calcified most likely structure right upper spinal canal at the level of C1 was present on the previous CT head and appears chronic. May represent sequela of prior trauma, surgery, disc fragment, and could be worked up with MRI if clinically indicated. Multilevel neural foraminal stenosis without ruben central canal stenosis. Lungs: No consolidation. Vasculature: Atherosclerosis. Soft tissues: No suspicious lesions. IMPRESSION: 1. No cervical spine fracture. 2. Additional findings as described. Labs Result diagrams: 10/22/20 06:00 10/22/20 06:00 Labs: Laboratory Results - last 24 hr 10/21/20 10/21/20 10/21/20 18:20 18:20 18:20 WBC RBC Hgb Hct MCV MCH MCHC RDW Plt Count MPV Immature Gran % Neutrophils % Lymphocytes % Monocytes % Eosinophils % Basophils % Nucleated RBC % Absolute Neutrophils Absolute Lymphocytes Absolute Monocytes Absolute Eosinophils Absolute Basophils PT 27.4 H INR 2.8 H APTT 35.4 H Sodium 141 Potassium 3.1 L Chloride 104 Carbon Dioxide 27.3 Anion Gap 9.7 BUN 13 Creatinine 0.8 Estimated GFR/1.73 m2 >= 60.00 Glucose 126 H Calcium 8.1 L Magnesium 1.4 L Total Bilirubin 1.2 H AST 62 H ALT 30 Alkaline Phosphatase 56 Creatine Kinase 2565 H Troponin I 0.12 H* NT-Pro-B Natriuret Pep Total Protein 5.9 L Albumin 3.2 L Urine Color Urine Clarity Urine pH Ur Specific Mallie Urine Protein Urine Ketones Urine Blood Urine Nitrite Urine Bilirubin Urine Urobilinogen Ur Leukocyte Esterase Urine RBC Urine WBC Ur Epithelial Cells Urine Crystals Urine Bacteria Urine Casts Urine Mucus Urine Other Ur Culture Indicated? Urine Glucose COVID-19 Source 10/21/20 10/21/20 10/21/20 18:20 18:46 18:55 WBC 9.44 RBC 4.60 Hgb 14.3 Hct 42.3 MCV 92.0 MCH 31.1 MCHC 33.8 RDW 13.7 Plt Count 212 MPV 11.0 Immature Gran % 0.4 Neutrophils % 71.4 Lymphocytes % 15.4 Monocytes % 11.9 Eosinophils % 0.2 Basophils % 0.7 Nucleated RBC % 0 Absolute Neutrophils 6.74 H Absolute Lymphocytes 1.45 Absolute Monocytes 1.12 H Absolute Eosinophils 0.02 Absolute Basophils 0.07 PT INR APTT Sodium Potassium Chloride Carbon Dioxide Anion Gap BUN Creatinine Estimated GFR/1.73 m2 Glucose Calcium Magnesium Total Bilirubin AST ALT Alkaline Phosphatase Creatine Kinase Troponin I NT-Pro-B Natriuret Pep 2992 H Total Protein Albumin Urine Color Yellow Urine Clarity Sl cloudy Urine pH 5.5 Ur Specific Mallie 1.025 Urine Protein Trace H Urine Ketones 15 H Urine Blood Large H Urine Nitrite Negative Urine Bilirubin Negative Urine Urobilinogen 1.0 H Ur Leukocyte Esterase Small H Urine RBC Negative Urine WBC >50 H Ur Epithelial Cells Negative Urine Crystals Negative Urine Bacteria Many Urine Casts Negative Urine Mucus Negative Urine Other Negative Ur Culture Indicated? Yes Urine Glucose Negative COVID-19 Source 10/21/20 10/21/20 21:00 22:24 WBC RBC Hgb Hct MCV MCH MCHC RDW Plt Count MPV Immature Gran % Neutrophils % Lymphocytes % Monocytes % Eosinophils % Basophils % Nucleated RBC % Absolute Neutrophils Absolute Lymphocytes Absolute Monocytes Absolute Eosinophils Absolute Basophils PT INR APTT Sodium Potassium Chloride Carbon Dioxide Anion Gap BUN Creatinine Estimated GFR/1.73 m2 Glucose Calcium Magnesium Total Bilirubin AST ALT Alkaline Phosphatase Creatine Kinase Troponin I 0.12 H* NT-Pro-B Natriuret Pep Total Protein Albumin Urine Color Urine Clarity Urine pH Ur Specific Mallie Urine Protein Urine Ketones Urine Blood Urine Nitrite Urine Bilirubin Urine Urobilinogen Ur Leukocyte Esterase Urine RBC Urine WBC Ur Epithelial Cells Urine Crystals Urine Bacteria Urine Casts Urine Mucus Urine Other Ur Culture Indicated? Urine Glucose COVID-19 Source Nasopharyx Last Vital Signs Temp 36.8 C 10/21/20 17:55 Pulse 76 10/21/20 22:17 Resp 19 10/21/20 22:17 BP 94/46 L 10/21/20 22:17 Pulse Ox 94 10/21/20 22:17 COVID-19 Screening Have you, or household traveled for leisure in last 14 days?: No Had IN PERSON contact w/suspected or confirmed C-19 person: No
[2020-10-21 23:16] LABS: TSH (W/Ref FT4) 0.34 uIU/mL (0.36-3.74)
[2020-10-21 23:38] LABS: FREE T4 1.22 ng/dL (0.76-1.46)
[2020-10-22] VITALS (14 sets, daily range): BP systolic 99–154; BP diastolic 55–81; PULSE 61–91; RESP 16–20; TEMP 35.8–36.9; O2SAT 92–97
[2020-10-22] MEDS: Normal Saline Flush 10 ML SYR IVP (00:53)
[2020-10-22] MEDS: Hydrocortisone SOD SUC. 100 MG VIAL IVP ×2 (00:53→09:35)
[2020-10-22] MEDS: Furosemide 20 MG/2 ML VIAL IVP (00:53)
[2020-10-22] MEDS: Metoprolol 12.5 MG TAB PO ×3 (00:53→17:20)
[2020-10-22] MEDS: Normal Saline 1,000 ML 125 ML IV ×3 (00:54→18:41)
[2020-10-22 06:54] LABS: Abs Immature Grans 0.05 10^3/uL (0.0-0.06); Absolute Basophil Count 0.06 10^3/uL (0.0-0.2); Absolute Eosinophil Count 0.01 10^3/uL (0.0-0.7); Absolute Lymphocyte Count 0.98 10^3/uL (1.2-3.4); Absolute Monocyte Count 0.38 10^3/uL (0.1-0.8); Absolute Neutrophil Count 8.22 10^3/uL (1.2-6.7); Basophils % 0.6; Eosinophils % 0.1; HCT 40.3 % (36.0-46.0); HGB 13.1 g/dL (11.2-15.7); Immature Grans % 0.5; Lymphocytes % 10.1; MCH 30.1 pg (27.0-33.0); MCHC 32.5 % (32.0-36.0); MCV 92.6 fL (80-95); MPV 10.9 fL (8.0-11.0); Monocytes % 3.9; Neutrophils % 84.8; Nucleated RBC 0 %; Platelet Count 197 10^3/uL (130-400); RBC 4.35 10^6/uL (3.93-5.22); RDW 14.1 % (11.7-14.6); RDW-SD 48.2 fL
[2020-10-22 07:04] LABS: INR 2.7 (0.9-1.1); Prothrombin Time 26.7 sec (9.3-11.0)
[2020-10-22 07:24] LABS: ALT 27 U/L (14-59); AST 54 U/L (15-37); Albumin 2.9 g/dL (3.4-5.0); Alkaline Phosphatase 52 U/L (46-116); Anion Gap 8.8 mmol/L (3-11); BUN 12 mg/dL (7-18); Bilirubin, Total 1.1 mg/dL (0.2-1.0); CO2 26.2 mmol/L (21.0-32.0); CREATININE 0.9 mg/dL (0.55-1.02); Calcium 7.9 mg/dL (8.5-10.1); Chloride 106 mmol/L (98-107); Estimated GFR 59.51 (mL/min/1.73m2); Glucose 123 mg/dL (74-106); Magnesium 2.1 mg/dL (1.8-2.4); Potassium 3.7 mmol/L (3.5-5.1); Sodium 141 mmol/L (136-145); Total Protein 5.7 g/dL (6.4-8.2)
[2020-10-22 07:25] LABS: Troponin I 0.06 ng/mL (<0.06)
[2020-10-22 07:28] LABS: Creatine Kinase 1693 U/L (26-192)
[2020-10-22] MEDS: Mirabegron 50 MG TABCR PO (08:33)
[2020-10-22] MEDS: cefTRIAXone 1 GM/50 ML BAG IVPB (08:33)
[2020-10-22] MEDS: Magnesium Lactate-SR 84 MG TABCR 252 MG PO ×2 (08:33→21:26)
[2020-10-22] MEDS: Losartan 50 MG TAB 100 MG PO (08:34)
[2020-10-22] MEDS: Terazosin 2 MG CAP PO ×2 (08:34→21:22)
[2020-10-22] MEDS: Acetaminophen 325 MG TAB 650 MG PO (08:34)
[2020-10-22] MEDS: Potassium Chloride Liquid 20 MEQ PKT PO ×2 (08:34→21:22)
[2020-10-22] MEDS: Gabapentin 100 MG CAP PO ×3 (08:34→21:22)
[2020-10-22] MEDS: Furosemide 20 MG TAB 10 MG PO (09:35)
[2020-10-22 09:53] LABS: COVID-19 PCR Negative (Negative)
[2020-10-22 10:11] LABS: Troponin I < 0.05 ng/mL (<0.06)
--- NOTE | 2020-10-22 11:32 | PT.INIE ---
Date of service: 10/22/20 Time of Service: 10:50 PT Notes Visit Reasons: SYNCOPE,RHABDOMYOLYSIS,TYPE II NON-STEMI,CHRONIC A Inpatient Physical Therapy Evaluation Date: 10/22/20 Referring Doctor: Shaq Moore PT Orders: PT CONSULT: Evaluate and Treat Precautions: Standard Patient Profile/Admitting Diagnosis: Orders received for this 85-year-old female with a history of moderate health conditions most recently later life affecting function. Patient describes an incident recently where she lost time and apparently ended up on the floor and does not recall how long she was possibly there. Patient has been admitted and monitoring with troponins trending this appears to be a case of syncope and rhabdomyolysis due to the increased creatinine kinase. They are also believing there may be a NSTEMI. Patient is still feeling off has been admitted for further monitoring. PMHX: Medical History Adenomatous colon polyp Allergic rhinitis Anticoagulated Atrial fibrillation f/u WITH DR. CASON 09/08/19 Black stools Chronic diarrhea Chronic diarrhea Cystocele with rectocele Deafness in left ear Diabetes mellitus Diverticulosis Esophageal stricture GERD (gastroesophageal reflux disease) H. pylori infection History of adenomatous polyp of colon Hyperlipidemia Hypertension Lumbar back pain Meningioma Osteoarthritis Polymyalgia rheumatica Rectocele Right hip pain Skin cancer of nose Traumatic wound Ulcer of right leg 04/26/19 referral from Anabelle Cason - injured on sharp piece of wheelchair 3-4 weeks ago. Seen in ER, antibx not finished due to diarrhea. Not healing. 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 There is an elevator for travel if she needs it Equipment Owned/DME: Front wheel walker Subjective: Patient states she still feeling a little off of the head and a little funny Objective: Patient sitting up in chair after just using the commode. Patient has IV access in the right Mental Status: Well oriented alert to person place and time Pain: No significant pain ROM: Right Upper Extremity: Within functional limits Left Upper Extremity: Within functional limits Right Lower Extremity: Within functional limits Left Lower Extremity: Within functional limits Strength: Right Upper Extremity: Grossly 4+ out of 5 Left Upper Extremity: Grossly 4+ out of 5 Right Lower Extremity: Grossly 5 out of 5, hip flexion appears to be a little bit limited at 4 out of 5 Left Lower Extremity: Grossly 5 out of 5, of flexion appears to be limited 4+ out of 5 Sit-stand: Under contact-guard assist with front wheel walker Stand-sit: Contact-guard assist Gait: Patient ambulates up to 10 feet utilizing contact-guard assist and front wheel walker. This was repeated by 3 repetitions Balance: Static Sitting: Normal Dynamic Sitting: Normal Static Standing: Fair Dynamic Standing: Poor Modified Romberg testing patient is positive for instability Patient unable to hold balance independently without use of front wheel walker and the need for minimum assistance for guard Special Tests: Mobility Limitations Standardized Measure [facility] AM-PAC 6 clicks Basic Mobility Inpatient Short Form: Raw Score: 18 standardized Score: 43.63 CMS Score: 46.58% Informed Consent/Education: Patient instructed in purpose of PT consult and plan of care. ASSESSMENT: Patient is a 85-year-old female with history of moderate health conditions affecting function Admitted with syncope, rhabdomyolysis, NSTEMI Patient presents with the following impairment level findings: Weakness globally, mild balance instability, ambulation intolerance, assistance needed for transfer Pt will benefit from skilled therapy intervention in order to remedy their functional limitations and restore patient to a more appropriate and stable functional level. Impairments are contributing to the following functional limitations: AMPAC score 46.58% Patient is assessed as a moderate complexity initial evaluation 19915 based on the following: History: see above Examination: see above Presentation: Evolving Decision Making: Moderate based on impact of 46.58% Goals: Goals X1 week 1. Supine-Sit independent 2. Sit-Supine independent 3. Sit-Stand independent with front wheel walker 4. Stand-Sit independent with front wheel walker 5. Bed-Chair independent with front wheel walker 6. Gait independent up to 100 feet with front wheel walker 7: Stairs independent with 3 steps 8: Independent in Home program Plan of Care/Treatment Plan: 1-2x/day, 7 days/week x 1 week. Plan of care has been reviewed with the MANAGER [employer] providing the service under Physical Therapy direction. Initiate Physical Therapy intervention for strengthening, bed mobility, transfers, gait, stairs, balance training, use of assistive device. DISCHARGE RECOMMENDATIONS: If all functional independent goals are reached patient should be able to return to prior living arrangement with follow-up with PCP TREATMENT CODE/TIME: Moderate complexity initial evaluation [id number] 10:50 to 11:05 15 minutes of direct patient care Rusty Silverman DPT
[2020-10-22] MEDS: Insulin Aspart 300 UNITS/3 ML PEN SC ×2 (12:01→17:20)
--- NOTE | 2020-10-22 15:27 | W.PM.PROGNOT ---
Date of Service Date of service: 10/22/20 Time of Service: 10:41 Assessment and Plan Assessment and plan (1) NSTEMI (non-ST elevated myocardial infarction): Status: Acute Assessment and plan: Trop trend: 0.12 > 0.12>0.06 > <0.05 Strain from syncopal event? She recalls no preceding CP or palpitations prior to syncopal event. Currently w/o CP. (2) Syncope: Status: Acute Assessment and plan: She doesn't recall an event. Telemetry monitoring has be negative for any arrhythmias. No recurrence. PT eval. Qualifiers: Syncope type: unspecified Qualified Code(s): R55 - Syncope and collapse (3) UTI (urinary tract infection): Status: Acute Assessment and plan: Given Gentamycin in ED. Changed coverage to Rocephin. Has PCN allergy but has taken Keflex in past w/o incident. Cx pending. Likely home tomorrow on Keflex unless culture comes in early and dictates otherwise. Qualifiers: Urinary tract infection type: site unspecified Hematuria presence: without hematuria Qualified Code(s): N39.0 - Urinary tract infection, site not specified (4) Rhabdomyolysis: Status: Acute Assessment and plan: Hydrated; now drinking/eating w/o difficulty. CK has decreased. Qualifiers: Rhabdomyolysis type: traumatic Encounter type: initial encounter Qualified Code(s): T79.6XXA - Traumatic ischemia of muscle, initial encounter (5) Atrial fibrillation: Status: Chronic Assessment and plan: Sinus rhythm Cont metoprolol Cont coumadin and monitor INR; no evidence of bleeding s/p fall. Qualifiers: Atrial fibrillation type: paroxysmal Qualified Code(s): I48.0 - Paroxysmal atrial fibrillation (6) Polymyalgia rheumatica: Status: Chronic Assessment and plan: On chronic steroid. Stress dosing of steroid initiated on admission. Will d/c stress dosing of IV hydrocortison. Resume home prednisone 5mg daily in AM (7) Diabetes type 2, controlled: Status: Chronic Assessment and plan: Holding glipizide. SS insulin correction dosing. Diabetic diet. Qualifiers: Diabetes mellitus machine long goods helper insulin use: without machine long goods helper use Diabetes mellitus complication status: without complication Qualified Code(s): E11.9 - Type 2 diabetes mellitus without complications Subjective Subjective Patient reports: no new complaints and afebrile; denies shortness of breath Interval history since last seen: No complaints. No events overnight. No CP, palpitations, syncope/near syncope. Exam Const General: cooperative and no acute distress Nutritional Appearance: average body habitus Orientation: oriented to person and oriented to place Resp Effort & Inspection: normal respiratory effort Auscultation: clear to auscultation bilaterally Cardio Heart Sounds: murmur Other: Irreg Irreg GI Palpation: soft and nontender Extrem General: no pedal edema and no calf tenderness Psych Appearance: grossly normal Speech and Movement: speech and movement normal Affect: normal affect Objective Last Vital Signs Temp 36.6 C 10/22/20 11:15 Pulse 72 10/22/20 11:15 Resp 17 10/22/20 11:15 BP 107/67 10/22/20 11:15 Pulse Ox 94 10/22/20 11:15 Laboratory Results - last 24 hr 10/21/20 10/21/20 10/21/20 18:20 18:20 18:20 WBC RBC Hgb Hct MCV MCH MCHC RDW Plt Count MPV Immature Gran % Neutrophils % Lymphocytes % Monocytes % Eosinophils % Basophils % Nucleated RBC % Absolute Neutrophils Absolute Lymphocytes Absolute Monocytes Absolute Eosinophils Absolute Basophils PT 27.4 H INR 2.8 H APTT 35.4 H Sodium 141 Potassium 3.1 L Chloride 104 Carbon Dioxide 27.3 Anion Gap 9.7 BUN 13 Creatinine 0.8 Estimated GFR/1.73 m2 >= 60.00 Glucose 126 H Calcium 8.1 L Magnesium 1.4 L Total Bilirubin 1.2 H AST 62 H ALT 30 Alkaline Phosphatase 56 Creatine Kinase 2565 H Troponin I 0.12 H* NT-Pro-B Natriuret Pep Total Protein 5.9 L Albumin 3.2 L TSH Free T4 Urine Color Urine Clarity Urine pH Ur Specific [place] Urine Protein Urine Ketones Urine Blood Urine Nitrite Urine Bilirubin Urine Urobilinogen Ur Leukocyte Esterase Urine RBC Urine WBC Ur Epithelial Cells Urine Crystals Urine Bacteria Urine Casts Urine Mucus Urine Other Ur Culture Indicated? Urine Glucose COVID-19 Source SARS-CoV-2 (PCR) 10/21/20 10/21/20 10/21/20 18:20 18:20 18:46 WBC RBC Hgb Hct MCV MCH MCHC RDW Plt Count MPV Immature Gran % Neutrophils % Lymphocytes % Monocytes % Eosinophils % Basophils % Nucleated RBC % Absolute Neutrophils Absolute Lymphocytes Absolute Monocytes Absolute Eosinophils Absolute Basophils PT INR APTT Sodium Potassium Chloride Carbon Dioxide Anion Gap BUN Creatinine Estimated GFR/1.73 m2 Glucose Calcium Magnesium Total Bilirubin AST ALT Alkaline Phosphatase Creatine Kinase Troponin I NT-Pro-B Natriuret Pep 2992 H Total Protein Albumin TSH 0.34 L Free T4 1.22 Urine Color Yellow Urine Clarity Sl cloudy Urine pH 5.5 Ur Specific [place] 1.025 Urine Protein Trace H Urine Ketones 15 H Urine Blood Large H Urine Nitrite Negative Urine Bilirubin Negative Urine Urobilinogen 1.0 H Ur Leukocyte Esterase Small H Urine RBC Negative Urine WBC >50 H Ur Epithelial Cells Negative Urine Crystals Negative Urine Bacteria Many Urine Casts Negative Urine Mucus Negative Urine Other Negative Ur Culture Indicated? Yes Urine Glucose Negative COVID-19 Source SARS-CoV-2 (PCR) 10/21/20 10/21/20 10/21/20 18:55 21:00 22:24 WBC 9.44 RBC 4.60 Hgb 14.3 Hct 42.3 MCV 92.0 MCH 31.1 MCHC 33.8 RDW 13.7 Plt Count 212 MPV 11.0 Immature Gran % 0.4 Neutrophils % 71.4 Lymphocytes % 15.4 Monocytes % 11.9 Eosinophils % 0.2 Basophils % 0.7 Nucleated RBC % 0 Absolute Neutrophils 6.74 H Absolute Lymphocytes 1.45 Absolute Monocytes 1.12 H Absolute Eosinophils 0.02 Absolute Basophils 0.07 PT INR APTT Sodium Potassium Chloride Carbon Dioxide Anion Gap BUN Creatinine Estimated GFR/1.73 m2 Glucose Calcium Magnesium Total Bilirubin AST ALT Alkaline Phosphatase Creatine Kinase Troponin I 0.12 H* NT-Pro-B Natriuret Pep Total Protein Albumin TSH Free T4 Urine Color Urine Clarity Urine pH Ur Specific [place] Urine Protein Urine Ketones Urine Blood Urine Nitrite Urine Bilirubin Urine Urobilinogen Ur Leukocyte Esterase Urine RBC Urine WBC Ur Epithelial Cells Urine Crystals Urine Bacteria Urine Casts Urine Mucus Urine Other Ur Culture Indicated? Urine Glucose COVID-19 Source Nasopharyx SARS-CoV-2 (PCR) Negative 10/22/20 10/22/20 10/22/20 06:00 06:00 06:00 WBC 9.70 RBC 4.35 Hgb 13.1 Hct 40.3 MCV 92.6 MCH 30.1 MCHC 32.5 RDW 14.1 Plt Count 197 MPV 10.9 Immature Gran % 0.5 Neutrophils % 84.8 Lymphocytes % 10.1 Monocytes % 3.9 Eosinophils % 0.1 Basophils % 0.6 Nucleated RBC % 0 Absolute Neutrophils 8.22 H Absolute Lymphocytes 0.98 L Absolute Monocytes 0.38 Absolute Eosinophils 0.01 Absolute Basophils 0.06 PT INR APTT Sodium 141 Potassium 3.7 Chloride 106 Carbon Dioxide 26.2 Anion Gap 8.8 BUN 12 Creatinine 0.9 Estimated GFR/1.73 m2 59.51 Glucose 123 H Calcium 7.9 L Magnesium 2.1 Total Bilirubin 1.1 H AST 54 H ALT 27 Alkaline Phosphatase 52 Creatine Kinase 1693 H Troponin I 0.06 NT-Pro-B Natriuret Pep Total Protein 5.7 L Albumin 2.9 L TSH Free T4 Urine Color Urine Clarity Urine pH Ur Specific [place] Urine Protein Urine Ketones Urine Blood Urine Nitrite Urine Bilirubin Urine Urobilinogen Ur Leukocyte Esterase Urine RBC Urine WBC Ur Epithelial Cells Urine Crystals Urine Bacteria Urine Casts Urine Mucus Urine Other Ur Culture Indicated? Urine Glucose COVID-19 Source SARS-CoV-2 (PCR) 10/22/20 10/22/20 06:02 09:45 WBC RBC Hgb Hct MCV MCH MCHC RDW Plt Count MPV Immature Gran % Neutrophils % Lymphocytes % Monocytes % Eosinophils % Basophils % Nucleated RBC % Absolute Neutrophils Absolute Lymphocytes Absolute Monocytes Absolute Eosinophils Absolute Basophils PT 26.7 H INR 2.7 H APTT Sodium Potassium Chloride Carbon Dioxide Anion Gap BUN Creatinine Estimated GFR/1.73 m2 Glucose Calcium Magnesium Total Bilirubin AST ALT Alkaline Phosphatase Creatine Kinase Troponin I < 0.05 NT-Pro-B Natriuret Pep Total Protein Albumin TSH Free T4 Urine Color Urine Clarity Urine pH Ur Specific [place] Urine Protein Urine Ketones Urine Blood Urine Nitrite Urine Bilirubin Urine Urobilinogen Ur Leukocyte Esterase Urine RBC Urine WBC Ur Epithelial Cells Urine Crystals Urine Bacteria Urine Casts Urine Mucus Urine Other Ur Culture Indicated? Urine Glucose COVID-19 Source SARS-CoV-2 (PCR)
--- NOTE | 2020-10-22 17:21 | PDOC.CMIN ---
- If Service Date Differs Date of service: 10/22/20 Time of Service: 17:21 Care Management Initial Assess REASON FOR HOSPITALIZATION:: Sycope, Rhabdomyolysis, Type II NSTEMI, Chronic Afib PREVIOUS FUNCTIONAL STATUS/SOCIAL/FAMILY SUPPORTS:: Ratna resides at the [facility] in [facility] with her cat. She has a good deal of family support, including her son and daughter in law, Alex and Rebekah, her son Ned, and daughter Alexandra. She is independent at baseline, but does not drive. Has patient been provided with info about the portal/API?: No Did the patient sign up for the portal?: No CODE STATUS:: Full Code INSURANCE COVERAGE / FINANCIAL ISSUES:: Medicare. AARP CURRENT HOME/COMMUNITY SERVICES/EQUIPMENT:: [employer] PRIMARY CARE PHYSICIAN:: Anabelle Domingo POTENTIAL DISCHARGE NEEDS:: Follow up appointments, evaluations for further needs. PATIENT/FAMILY EDUCATION NEEDS:: Review discharge instructions, discuss Ask Me Three. ANTICIPATED BARRIERS TO DISCHARGE:: None identified. TRANSPORTATION:: Via private vehicle with family. PLAN:: Anticipate Ratna will return home with no additional services once cleared by MD. Her family will drive her via private vehicle. CM will continue to follow.
[2020-10-22] MEDS: Warfarin 5 MG TAB PO (18:40)
[2020-10-22] MEDS: Atorvastatin 10 MG TAB 20 MG PO (21:23)
[2020-10-22] MEDS: Omeprazole 20 MG CAPCR PO (21:26)
[2020-10-23] MEDS: Metoprolol 12.5 MG TAB PO ×2 (00:47→07:59)
[2020-10-23] MEDS: Normal Saline 1,000 ML 125 ML IV ×2 (02:07→10:43)
[2020-10-23 03:15] VITALS: BP 155/69; PULSE 62; RESP 18; TEMP 36.8; O2SAT 96
[2020-10-23 06:56] LABS: INR 3.9 (0.9-1.1); Prothrombin Time 38.3 sec (9.3-11.0)
[2020-10-23 07:45] VITALS: BP 153/71; PULSE 78; PULSE 79; RESP 20; TEMP 36.9; O2SAT 96
[2020-10-23] MEDS: Magnesium Lactate-SR 84 MG TABCR 252 MG PO (07:58)
[2020-10-23] MEDS: cefTRIAXone 1 GM/50 ML BAG IVPB (07:58)
[2020-10-23] MEDS: Terazosin 2 MG CAP PO (07:59)
[2020-10-23] MEDS: Losartan 50 MG TAB 100 MG PO (07:59)
[2020-10-23] MEDS: Gabapentin 100 MG CAP PO ×2 (07:59→13:52)
[2020-10-23] MEDS: predniSONE 5 MG TAB PO (07:59)
[2020-10-23] MEDS: Mirabegron 50 MG TABCR PO (07:59)
[2020-10-23] MEDS: Furosemide 20 MG TAB 10 MG PO (07:59)
[2020-10-23] MEDS: Potassium Chloride Liquid 20 MEQ PKT PO (09:06)
--- NOTE | 2020-10-23 09:33 | OTIE_ITS ---
Occupational Therapy Notes Inpatient Occupational Therapy Evaluation Date: 10/23/20 Referring Doctor: Ned Smith MD OT Orders: Non-Urgent Precautions: Fall, standard, Full PATIENT PROFILE/ADMITTING DIAGNOSIS: Pt is a 85 year old female who presented to the ED on 10/21/20 for syncope, UTI, elevated troponin, rhabdomyolysis. She was admitted to Med surg and was consulted for assessment of ADLs and performance of her ADLs within the impairments and functional limitations. Past Medical History: Medical History (Updated 10/21/20 @ 23:19 by Ned Vasquez) Adenomatous colon polyp Allergic rhinitis Anticoagulated Atrial fibrillation f/u WITH DR. CASON 09/08/19 Black stools Chronic diarrhea Chronic diarrhea Cystocele with rectocele Deafness in left ear Diabetes mellitus Diverticulosis Esophageal stricture GERD (gastroesophageal reflux disease) H. pylori infection History of adenomatous polyp of colon Hyperlipidemia Hypertension Lumbar back pain Meningioma Osteoarthritis Polymyalgia rheumatica Rectocele Right hip pain Skin cancer of nose Traumatic wound Ulcer of right leg 04/26/19 referral from Anabelle Cason - injured on sharp piece of wheelchair 3-4 weeks ago. Seen in ER, antibx not finished due to diarrhea. Not healing. 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 She states that she is totally (I) at her baseline level of function. She utilizes the elevator and her laundry is in the basement. She is (I) with driving, grocery shopping and cooking. She has a two bedroom apartment and states that she has a lot of community support including from her simulation technician who checks on her frequently. Equipment owned/DME: [facility] SUBJECTIVE: Pt was sitting in chair when OT arrived. She was pleasant and agreeable to OT session and notes that she wants to go home to her cat as soon as possible. OBJECTIVE: General Observation: IV ((R) UE, pleasant and agreeable to services Mental Status: A&Ox4 Pain: no c/o pain ROM: RUE AROM WFL L UE AROM WFL STRENGTH: RUE 4/5 throughout globally LUE 4/5 throughout globally FUNCTIONAL MOBILITY/ADLS: Transfers with [facility] Sit-Stand (I) Stand-sit (I) BATHING Pt denies DRESSING sitting in chair Dressing UE (I) Dressing LE (I) GROOMING seated in chair (I) with brushing hair, appropriate ROM for teeth and oral hygiene TOILETING (I) on toilet EATING OT was not able to visually assess this, per pt report she is (I) with no issues, she has AROM appropriate for hand to mouth translation. BALANCE: Static sitting Normal Dynamic Sitting Normal Static Standing Normal Dynamic Standing Normal SPECIAL TESTS: Daily Activity Limitations Standardized Measure [facility] AM PAC ?6 clicks? Daily Activity Inpatient Short Form: Raw score: 22 Standardized score: 47.10 CMS score: 25.80% INFORMED CONSENT/EDUCATION: Pt instructed in purpose of OT Consult and plan of care. ASSESSMENT: Patient is a 85-year-old female referred to occupational therapy services with diagnosis of exacerbation of chronic condition. Patient was seen for OT consult, she feels that she is at her baseline level of function and is able to perform her ADLs with increased (I) throughout. Functionally She can perform her gross and dynamic movements without LOB or safety concerns and she is able to perform LE dressing as well as standing ADLs with increased (I). AMPAC score 22 Patient is assessed as a Low 68470 complexity based on the following: History: see above Examination: see functional limitations as noted above Presentation: evolving Decision Making: AMPAC score 22 GOALS N/A pt was seen for OT consult only. PLAN OF CARE/TREATMENT PLAN: 1x/day, 5 days/ week x 1week Initiate Occupational Therapy Services for bathing, dressing, grooming, toileting, eating, transfer training. DISCHARGE RECOMMENDATIONS OT recommends that pt return home with OT services for assessment of ADLs in the home setting and for further DME needs. TREATMENT TIME/MINUTES/CODES 24482, 15 minutes (09:15) [facility]ONARD[facility]
--- NOTE | 2020-10-23 10:55 | W.INDIABCONS ---
Date of service: 10/23/20 Time of Service: 10:55 Diabetes Inpatient Consult DESCRIPTION/ASSESSMENT: 85 year old female admitted s/p fall with UTI. PMH: dementia, DM. Home DM meds include glipizide 2.5 mg q AM. Most recent A1c: 6.1% indicates well controlled DM. No need for diabetic education in view of optimal glycemic control. Diet advanced to and well tolerated. BMI wnl and stable. Not considered at nutritional risk. INTERVENTION: will monitor po intake and labs PLAN: continue current meal plan will be available prn Time Spent in Nutritional Counseling and Treatment: 0
--- NOTE | 2020-10-23 11:20 | PT.INDS ---
Date of service: 10/23/20 Time of Service: 11:20 PT Notes Visit Reasons: SYNCOPE, RHABDOMYOLYSIS, TYPE II NON-STEMI, CHRONI Physical Therapy Inpatient Discharge Summary Date: 10/23/20 Referring Doctor: Shaq Moore MD Precautions: Standard. Weight is tolerated. Patient Profile/Admitting Diagnosis: Orders received for this 85-year-old female with a history of moderate health conditions most recently later life affecting function. Patient describes an incident recently where she lost time and apparently ended up on the floor and does not recall how long she was possibly there. Patient has been admitted and monitoring with troponins trending this appears to be a case of syncope and rhabdomyolysis due to the increased creatinine kinase. They are also believing there may be a NSTEMI. Patient is still feeling off has been admitted for further monitoring. PMHX: Medical History Adenomatous colon polyp Allergic rhinitis Anticoagulated Atrial fibrillation f/u WITH DR. CASON 09/08/19 Black stools Chronic diarrhea Chronic diarrhea Cystocele with rectocele Deafness in left ear Diabetes mellitus Diverticulosis Esophageal stricture GERD (gastroesophageal reflux disease) H. pylori infection History of adenomatous polyp of colon Hyperlipidemia Hypertension Lumbar back pain Meningioma Osteoarthritis Polymyalgia rheumatica Rectocele Right hip pain Skin cancer of nose Traumatic wound Ulcer of right leg 04/26/19 referral from Anabelle Cason - injured on sharp piece of wheelchair 3-4 weeks ago. Seen in ER, antibx not finished due to diarrhea. Not healing. 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 There is an elevator for travel if she needs it Equipment Owned/DME: Front wheel walker Subjective: Patient is pleasant and cooperative. Reports feeling much more better than she did yesterday. Denies pain, lightheadedness, and dizziness throughout session. Objective: Patient sitting up in chair. Patient has IV access in the right Mental Status: Alert and oriented x4 Pain: None reported ROM: Right Upper Extremity: Within functional limits Left Upper Extremity: Within functional limits Right Lower Extremity: Within functional limits Left Lower Extremity: Within functional limits Strength: Right Upper Extremity: Grossly 4+ out of 5 Left Upper Extremity: Grossly 4+ out of 5 Right Lower Extremity: Grossly 5 out of 5, hip flexion appears to be a little bit limited at 4 out of 5 Left Lower Extremity: Grossly 5 out of 5, of flexion appears to be limited 4+ out of 5 Bed Mobility/Transfers: Rolling independent Supine to sit independent Sit to supine independent Sit to stand independent Stand to sit independent Bed to chair supervision Chair to bed supervision Gait: Upgraded patient through level surface ambulation of 250 feet +250 feet using a front wheeled walker with full weightbearing in bilateral lower extremities requiring only supervision. Noticeable Trendelenburg gait versus short LE. Patient indicated that she has walked like this for a long time. Denies chest pain, headache, and lightheadedness throughout session. Balance: Static Sitting: Normal Dynamic Sitting: Normal Static Standing: Fair Dynamic Standing: Fair ASSESSMENT: Patient has demonstrated significant functional mobility performance with medical management received since hospital admission. Patient will benefit from home health PT services in order to progress mobility level using least restrictive assistive ambulatory device, assess home safety, identify additional equipment needs, and establish a functional maintenance program that will increase ability of patient to remain at home. Goals: Goals X1 week 1. Supine-Sit independent MET 2. Sit-Supine independent MET 3. Sit-Stand independent with front wheel walker MET 4. Stand-Sit independent with front wheel walker MET 5. Bed-Chair independent with front wheel walker NOT MET 6. Gait independent up to 100 feet with front wheel walker NOT MET 7: Stairs independent with 3 steps NOT MET 8: Independent in Home program NOT MET DISCHARGE RECOMMENDATIONS: Patient will benefit from home health PT services in order to progress mobility level using least restrictive assistive ambulatory device, assess home safety, identify additional equipment needs, and establish a functional maintenance program that will increase ability of patient to remain at home. TREATMENT TIME/CODE: Three 0 x 25 minutes beginning at 11:20 AM. Thank you for the opportunity to participate in the care of this patient. Marie Sorensen PT, DPT, CLT [facility] [place], [place]
[2020-10-23 11:27] VITALS: BP 160/98; PULSE 69; RESP 19; TEMP 36.7; O2SAT 97
--- NOTE | 2020-10-23 14:01 | DSE_ITS ---
Date of service: 10/23/20 Time of Service: 14:01 DS: Diagnosis Discharge Diagnosis (1) NSTEMI (non-ST elevated myocardial infarction): Status: Acute (2) Syncope: Status: Resolved (3) UTI (urinary tract infection): Status: Acute (4) Rhabdomyolysis: Status: Acute (5) Atrial fibrillation: Status: Chronic (6) Polymyalgia rheumatica: Status: Chronic (7) Diabetes type 2, controlled: Status: Chronic Discharge Plan Disposition Patient Disposition: HOME Condition: Improving Discharge Details Reason For Visit: SYNCOPE, RHABDOMYOLYSIS, TYPE II NON-STEMI, CHRONI Admit Date/Time: 10/21/20 22:16 Admit Provider: Ned Vasquez Attending Provider: Ned Vasquez Primary Care Provider: Anabelle Cason [facility] Course Hospital Course: Ratna Lim is a very pleasant 85-year-old female with a past medical history significant for atrial fibrillation, on warfarin, type 2 diabetes, hypertension, hyperlipidemia, GERD, sleep apnea, cognitive impairment, and PMR, on prednisone who presented to the emergency department on 10/22/2020 after being found down at home for an unknown amount of time. She was found by her grandson who noted that she had urine and fecal material around her. She did not remember the event. She had areas of discomfort over her hips and back, imaging was nega tive. Her troponins were slightly elevated and trending downward upon admission, likely due to type II NSTEMI due to demand ischemia. She was found to have rhabdomyolysis and a urinary tract infection. She denied any chest pain. She was admitted for further observation and management. She received IV fluids, her CK improved. She had no chest pain or syncope during her hospitalization. She worked with physical therapy on strengthening, bed mobility, transfers, gait, balance training and use of assistive devices. She was evaluated by OT who recommend home health OT for assessment of ADLs in the home setting and for further DME needs. She was initially given ceftriaxone for her urinary tract infection and was stepped down to Keflex. She will complete the course as an outpatient. On the day of discharge, her INR is supratherapeutic at 3.9. We will plan to hold her at bedtime dose of Coumadin tonight and resume decreased dose of 2.5 mg tomorrow with follow-up INR on Friday. We discussed CODE status. She states she is a DNR/DNI. She did not want to fill out a COLST without talking to her son, she was given a blank COLST to take home with her. She is referred to Palliative to follow up as an outpatient. Of note, she had a CT head/cervical spine which showed:Severe degenerative changes and calcified masslike radiodensity of the right spinal canal at C1 level, MR evaluation with scanning of the brain and cervical spine recommended including without and post contrast examination. Follow up recommended. Home Meds and New Rx's Prescriptions: New cephalexin 500 mg tablet 500 mg PO Q12H Qty: 8 RF: 0 Continued furosemide 20 mg tablet 10 mg PO DAILY RF: 0 omeprazole 20 mg capsule,delayed release(DR/EC) 40 mg PO HS RF: 0 Myrbetriq 50 mg tablet extended release 24 hr 50 mg PO DAILY Qty: 90 RF: 4 losartan 50 MG tablet 100 mg PO QAM RF: 0 dofetilide [Tikosyn] 125 MCG capsule 125 mcg PO BID RF: 0 prednisone 2.5 MG tablet 5 mg PO QAM RF: 0 gabapentin 100 MG capsule 100 mg PO TID RF: 0 atorvastatin 10 MG tablet 20 mg PO QAM RF: 0 warfarin 2.5 mg tablet 5 mg PO DIRECTED RF: 0 potassium chloride [Klor-Con 10] 10 mEq tablet extended release 20 meq PO BID Qty: 360 RF: 3 magnesium L-lactate [Magtab] 84 mg tablet extended release 252 mg PO BID Qty: 180 RF: 11 metoprolol succinate 25 mg Tablet Extended Release 24 Hr 50 mg PO DAILY RF: 0 terazosin 2 MG capsule 2 mg PO BID RF: 0 acetaminophen 500 mg tablet 1,000 mg PO Q8H PRN (Reason: pain) Qty: 90 RF: 3 tramadol 50 mg tablet 25 mg PO DAILY PRNRF: 0 Discharge Instructions Instructions: Rhabdomyolysis (DC) Additional Instructions: Do not take coumadin tonight. Resume coumadin 2.5 mg tomorrow night. INR on 10/25/20. Take antibiotic until it is gone (Keflex), for UTI. Palliative care will contact you to schedule a home visit. follow up with your PCP as scheduled. Stand Alone Forms: Nursing Discharge Form Referrals: Anabelle Cason MD [Primary Care Provider] - 10/30/20 11:00 am Activity:: Activity as Tolerated Equipment/Supplies:: No Equipment Needed Diet:: Carb Counting Discharge Orders Discharge Orders: Discharge Order (Routine); Ordered 10/23/20 Ordered By: Leonor Hooker Other Ambulatory Orders: Prothrombin Time (Routine) Location: None Selected Ordered By: Leonor Hooker DS: Summary Time Spent with Patient providing and/or coordinating discharge services: Greater than 30 minutes Status at Discharge Functional status at discharge: uses cane/walker Overall status at discharge: patient is progressing back to baseline Mental Status: mental status grossly normal Speech and Movement: speech and movement normal Mood: congruent mood Affect: normal affect Exam Narrative Exam Narrative: General: Elderly female, sitting up in the chair, awake and alert, pleasant and talkative. HEENT: normocephalic, atraumatic, makes good eye contact, mucous membranes m oist. Neck: supple, no JVD. Cardiovascular: Irregularly irregular rhythm, +murmur. Respiratory: respirations appear even and unlabored, lung sounds are clear throughout. GI: +BS, abdomen soft, nontender on palpation, nondistended. Extremities: +1 BLE pitting edema. Psych Mental Status: mental status grossly normal Speech and Movement: speech and movement normal Mood: congruent mood Affect: normal affect DS: Data Vitals/I&O Vitals and I&O: Vital Signs Temperature 36.7 C 10/23/20 11:27 Temperature Source Tympanic 10/23/20 11:27 Pulse 69 10/23/20 11:27 Pulse Rhythm Regular 10/23/20 09:44 Pulse 75 10/21/20 23:32 Respiratory Rate 19 10/23/20 11:27 Respiratory Effort Non-Labored 10/23/20 09:44 Respiratory Depth Normal 10/23/20 09:44 Respiratory Pattern Normal 10/23/20 09:44 Blood Pressure 160/98 H 10/23/20 11:27 Blood Pressure Mean 53 10/21/20 23:32 Blood Pressure Position Supine 10/21/20 17:55 Pulse Oximetry 97 10/23/20 11:27 Oxygen Delivery Method Room Air 10/23/20 11:27 Oxygen Flow Rate 0 10/23/20 11:27 Pain Level 0 10/23/20 11:27 Comment 10/22/20 23:25 Intake & Output 10/22/20 10/23/2021 23:59 11:59 23:59 Intake Total 2240 / 3670 1929.167 / 2169.167 240 / 2169.167 Output Total 100 / 350 250 / 350 Balance 2240 / 2450 1829.167 / 1818.167 -1818.167 Weight 65 kg Intake: IV 1999 / 3060 1929.167 / 1928.167 Oral 240 / 610 240 / 240 Output: Urine 100 / 350 250 / 350 Other: Urine Color Yellow Light Pallavi Urine Appearance Clear Clear Clear Urine Odor Normal Normal Comment Tried to urinate, but couldn't. RN notified Stool Size Large Stool Characteristics Soft Liquid Brown Voiding Methods Toilet Toilet Data Completed and Pending Completed studies during hospitalization [Text1]: 10/21/20: CT chest/abd/pelvis: IMPRESSION: No evidence of acute injury of the chest, abdomen, or pelvis. CT head/cervical spine: IMPRESSION: No evidence of acute cervical spine injury. Severe degenerative changes and calcified masslike radiodensity of the right spinal canal at C1 level, MR evaluation with scanning of the brain and cervical spine recommended including without and post contrast examination. No evidence of acute intracranial injury. CT thoracic spine: IMPRESSION: 1. Diffuse osteopenia. 2. Moderate thoracic spondylosis and degenerative disc disease with prominent Schmorl's nodes seen at the inferior endplate of T11. 3. Convex right thoracic curvature. Labs on day of discharge: Labs from last 24 hours 10/23/20 06:35 PT 38.3 H D INR 3.9 H D PFSH Medical History Adenomatous colon polyp Allergic rhinitis Anticoagulated Atrial fibrillation f/u WITH DR. CASON 09/08/19 Black stools Chronic diarrhea Chronic diarrhea Cystocele with rectocele Deafness in left ear Diabetes mellitus Diverticulosis Esophageal stricture GERD (gastroesophageal reflux disease) H. pylori infection History of adenomatous polyp of colon Hyperlipidemia Hypertension Lumbar back pain Meningioma Osteoarthritis Polymyalgia rheumatica Rectocele Right hip pain Skin cancer of nose Traumatic wound Ulcer of right leg 04/26/19 referral from Anabelle Cason - injured on sharp piece of wheelchair 3-4 weeks ago. Seen in ER, antibx not finished due to diarrhea. Not healing. 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
--- NOTE | 2020-10-23 14:37 | PDOC.HHF2F_ITS ---
Home Health Certification Home Health Certification: 1. Encounter Date and Reason I certify that LARS ELIAS was seen by Leonor Hooker on 10/23/20 and that I had a amyk-ma-wrxt encounter with this patient that meets the physician face to face encounter requirements. 2. Clinical Findings Supporting Skilled Need and Homebound Status I certify that home health services are medically necessary, include either intermittent assisted and/or physical/speech therapy, and that this patient is homebound in that absences from the home require considerable and taxing effort and are infrequent or of short duration, or are attributable to the need to receive medical care. [X] (a) Attached documentation from encounter provides clinical findings supporting skilled need and homebound status (including what assistance patient requires to leave the home). The encounter with the patient was in whole, or in part, for the following medical condition, which is the primary reason for home health care: SYNCOPE, RHABDOMYOLYSIS, TYPE II NON-STEMI, falls Chcf: Needed to monitor medical conditions, assist with medication management. Physical Therapy: needed for strengthening, bed mobility, transfers, gait, stairs, balance training, use of assistive device. OT: needed for for assessment of ADLs in the home setting and for further DME needs. Speech Therapy: Homebound: unable to leave home without assistance. 3. Certification and Authentication I certify that I composed the above information based on my clinical judgement relating to this patient's medical condition and, if applicable, clinical findings communicated to me by the NPP or inpatient physician who performed the Home Health Referral. All further orders will be obtained through Jose L (Community Based Physician - PCP)
[2020-10-23 14:44] VITALS: PULSE 79
--- NOTE | 2020-10-23 15:58 | PDOC.CMDIS ---
- If Service Date Differs Date of service: 10/23/20 Time of Service: 15:58 LACE Index Scoring Tool - Questions: Length of Stay (in days): 2 Acuity (Admit via E.D.?): Yes Comorbidities: Diabetes w/o Complication E.D. Visits: 2 - Answers: Total Score: 8 Risk of Readmission: Low Risk Care Management Discharge Reason for Hospitalization: Sycope, Rhabdomyolysis, Type II NSTEMI, Chronic Afib Discharge Plan: Ratna will return home with no additional services. She will follow up with her community providers and discharge plan of care. Her family will drive her via private vehicle. Patient/Family Education Needs: Review discharge instructions, discuss Ask Me Three. Services Needed at Discharge: Home Health Care Services
== END 2020-10-23 15:16 | disposition home or self-care (01) | DRG 281 ==
LOC: ER 22:52 → MS 23:44
PROVIDERS: Family Medicine; Physician Assistant; Admitting Provider Family Medicine; Emergency Provider Emergency Medicine; PCP Family Medicine; Visit Provider Family Medicine
DX: I21.A1 Myocardial infarction type 2 (principal); L97.819 Non-pressure chronic ulcer of other part of right lower leg with unspecified severity; N39.0 Urinary tract infection, site not specified; T79.6XXA Traumatic ischemia of muscle, initial encounter; I48.0 Paroxysmal atrial fibrillation; I25.10 Atherosclerotic heart disease of native coronary artery without angina pectoris; E11.9 Type 2 diabetes mellitus without complications; I10 Essential (primary) hypertension; M35.3 Polymyalgia rheumatica; E78.5 Hyperlipidemia, unspecified; K21.9 Gastro-esophageal reflux disease without esophagitis; W18.30XA Fall on same level, unspecified, initial encounter; J30.9 Allergic rhinitis, unspecified; K52.9 Noninfective gastroenteritis and colitis, unspecified; K22.2 Esophageal obstruction; M54.5 Low back pain; M19.90 Unspecified osteoarthritis, unspecified site; I87.2 Venous insufficiency (chronic) (peripheral); Z79.01 Long term (current) use of anticoagulants; R32 Unspecified urinary incontinence; F03.90 Unspecified dementia, unspecified severity, without behavioral disturbance, psychotic disturbance, mood disturbance, and anxiety
CPT/HCPCS: 36415; 71275; 74177; 80053; 82550; 87077; 93005; 96361; 96365; 96367; 96375; 97162; 97165; 97530; 99223; 99232; 99239; 99285; 70450; 72125; 81003; 81015; 83735; 83880; 84439; 84443; 84484; 85025; 85610; 85730; 87086; 87186; 93010; J0131; J0696; J1580; J1720; J1941; J3490; J7512

== ENCOUNTER 2020-10-27 15:20 | Outpatient (REF) | payer MEDICARE, SELFPAY ==
[2020-10-27 17:56] LABS: INR 3.9 (0.9-1.1); Prothrombin Time 37.6 sec (9.3-11.0)
== END 2020-10-27 15:21 | disposition home or self-care (01) ==
LOC: NCHCN 15:20
PROVIDERS: PCP Family Medicine; Visit Provider Family Medicine
DX: I25.10 Atherosclerotic heart disease of native coronary artery without angina pectoris (principal); Z79.01 Long term (current) use of anticoagulants
CPT/HCPCS: 85610

== ENCOUNTER 2020-11-16 01:21 | Outpatient (CLI) | payer MEDICARE, SELFPAY ==
--- NOTE | 2020-11-16 | DI.MRI_ITS ---
EXAM: MR CERVICAL SPINE WO/W CLINICAL HISTORY: CERVICAL SPINE MASS,R22.1 TECHNIQUE: Multiplanar multisequence MRI of the cervical spine was performed. CONTRAST MATERIAL: IV Contrast: 12 ML of Dotarem contrast administered. COMPARISON: CT CT HEAD CERVICAL SPINE WO from 10/21/2020 FINDINGS: BONES: Vertebral body heights are maintained. Intervertebral disc spaces are normal. There is reversa l of the normal cervical lordosis centered at C4. There is 3 mm anterolisthesis of C3 on C4. Degener ative endplate signal changes are noted. CERVICAL CORD: Craniovertebral junction is unremarkable. The cervical cord is normal size and signal intensity. There is a 1.0 cm transverse by 0.9 cm AP by 2.1 cm craniocaudad lesion in the spinal jaelyn l at the craniovertebral junction to the right of the spinal cord. There is no significant compressi on on the spinal cord. The mass shows homogeneous enhancement following contrast administration. SOFT TISSUES: Unremarkable. ENHANCEMENT: Please see the above discussion. C2-3: No disc herniation or bulge is identified. No significant central spinal canal or neural forami nal stenosis. C3-4: There is narrowing of the central spinal canal. There is also bilateral neural foraminal steno sis. C4-5: No disc herniation or bulge is identified. No significant central spinal canal or neural forami nal stenosis C5-6: There is prominence of the osteophyte disc complex. There is mild narrowing of the central spi nal canal. Uncovertebral joint hypertrophy is present causing mild narrowing of the neural foramen. C6-7: There is prominence of the osteophyte disc complex. Minimal central spinal canal narrowing is noted. Degenerative changes of the uncovertebral joints are present causing mild bilateral neural fo raminal narrowing. C7-T1: No disc herniation or bulge is identified. No significant central spinal canal or neural elie inal stenosis IMPRESSION: 1. 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 Diagnostic considerations include meningioma, nerve sheath tumor or metastases among othe r processes. 2. Multilevel degenerative changes in the cervical spine resulting in central spinal canal and neural foraminal stenosis as described above. DATA REPOSITORY:
--- NOTE | 2020-11-16 | DI.MRI_ITS ---
EXAM: MR BRAIN WO/W CLINICAL HISTORY: CERVICAL SPINE MASS,R22.1 TECHNIQUE: Multiplanar multisequence MRI of the brain was performed. CONTRAST MATERIAL: IV Contrast: 12 ML of Dotarem contrast administered. COMPARISON: CT CT HEAD CERVICAL SPINE WO from 10/21/2020 FINDINGS: VENTRICLES AND EXTRA AXIAL SPACES: Normal in size and morphology for the patient's age. HEMORRHAGE: No evidence of acute hemorrhage. CEREBRAL PARENCHYMA: No focus of restricted diffusion to suggest acute infarct. The lesion at the egg crater niovertebral junction is again visualized. No other intracranial lesions are identified. There are areas of hyperintense signal in the white matter on the FLAIR and T2 weighted images consistent with chronic microvascular ischemic disease. There is an area of encephalomalacia in the left temporal lo be. MIDLINE SHIFT: None. BRAINSTEM/CEREBELLUM: Normal. CALVARIUM: Normal. ENHANCEMENT: The enhancing lesion at the craniovertebral junction is better visualized on the MRI of the cervical spine and is described in detail on the report from this examination on the same day. VISUALIZED PARANASAL SINUSES/MASTOIDS: Clear. [place] OF [place]: Normal flow void. PITUITARY GLAND: Unremarkable. OTHER FINDINGS: IMPRESSION: 1. The enhancing lesion at the craniovertebral junction is best described on the MRI of the cervical spine. 2. No other intracranial or enhancing lesion identified. 3. Cerebral atrophy and small vessel ischemic disease. DATA REPOSITORY:
[2020-11-16] MEDS: Normal Saline Flush 10 ML SYR IVP (14:47)
[2020-11-16] MEDS: Gadoterate meglumine 20 ML VIAL 12 ML IVP (14:48)
== END 2020-11-16 01:41 ==
PROVIDERS: PCP Family Medicine; Visit Provider Family Medicine
DX: R22.1 Localized swelling, mass and lump, neck (principal); G31.89 Other specified degenerative diseases of nervous system; M47.812 Spondylosis without myelopathy or radiculopathy, cervical region; M48.02 Spinal stenosis, cervical region
CPT/HCPCS: 70553; 72156

== ENCOUNTER 2021-01-03 11:41 | Emergency (ER) | payer MEDICARE, SELFPAY ==
[2021-01-03 11:43] VITALS: BP 183/83; PULSE 68; RESP 16; TEMP 36.6; O2SAT 97
--- NOTE | 2021-01-03 12:15 | DI.RAD_ITS ---
Exam(s) XR TIB/FIB RT EXAM: XR TIB/FIB RT CLINICAL HISTORY: Laceration mid Tib Fib, R/O FB or Fracture. TECHNIQUE: 2D digital imaging was performed. COMPARISON: Age-related osteopenia but no evidence of acute fracture. Vascular calcification is not ed in the posterior tibial artery. Chondrocalcinosis in the knee joint noted. FINDINGS: No fracture evident IMPRESSION: DATA REPOSITORY: RADIATION DOSE DELIVERED:
--- NOTE | 2021-01-03 12:21 | W.ED.GENAD ---
Discharge Plan Disposition Patient Disposition: HOME Condition: Stable Discharge Details Clinical Impression: Laceration of right lower leg Primary Care Provider: Anabelle Cason ED Provider: Diane Mccauley [place] Meds and New Rx's Prescriptions: No Action furosemide 20 mg tablet 10 mg PO QAM RF: 0 omeprazole 20 mg capsule,delayed release(DR/EC) 40 mg PO DAILY RF: 0 losartan 50 MG tablet 100 mg PO QAM RF: 0 dofetilide [Tikosyn] 125 MCG capsule 125 mcg PO BID RF: 0 prednisone 2.5 MG tablet 5 mg PO QAM RF: 0 gabapentin 100 MG capsule 100 mg PO TID RF: 0 atorvastatin 10 MG tablet 20 mg PO QAM RF: 0 warfarin 2.5 mg tablet 2.5 mg PO HS RF: 0 potassium chloride [Klor-Con 10] 10 mEq tablet extended release 20 meq PO BID Qty: 360 RF: 3 magnesium L-lactate [Magtab] 84 mg tablet extended release 252 mg PO BID Qty: 180 RF: 11 metoprolol succinate 25 mg Tablet Extended Release 24 Hr 50 mg PO QAM RF: 0 terazosin 2 MG capsule 2 mg PO BID RF: 0 acetaminophen 500 mg tablet 1,000 mg PO Q8H PRN (Reason: pain) Qty: 90 RF: 3 Myrbetriq 50 mg tablet extended release 24 hr 50 mg PO QAM RF: 0 tramadol 50 mg tablet 25 mg PO DAILY PRNRF: 0 cephalexin 500 mg tablet 500 mg PO Q12H Qty: 8 RF: 0 Discharge Instructions Instructions: Laceration (ED), Steristrips (ED) Additional Instructions: Keep area clean and dry. Keep dressing on for the next 12 to 24 hours. Return to the ED for any signs of infection including increased redness, red streaks, drainage or any concerns. If it begins bleeding again please apply pressure for 15 minutes bleeding continues please return to the emergency department. Rest, ice, compression, elevation. Please take Tylenol or Ibuprofen with food every 4-6 hours as needed for pain and swelling. Referrals: Anabelle Cason MD [Primary Care Provider] - Discharge Data Discharge Date/Time-TO BE ENTERED AT DEPARTURE: 01/03/21 14:00 Medical Decision Making 85-year-old female presents to the ER with chief complaint of right lower extremity laceration which occurred just prior to arrival while walking with a walker. They banged it with a walker. There was some mild to moderate bleeding per patient report prior to arrival. Patient is on warfarin. There is approximately 2 x 2 centimeter laceration noted which bleeding is controlled at this time to the lower to there is also a contusion noted proximally to the anterior hernández. Distal sensation movement to the ankle is intact. Cap refill less than 2 seconds. There is slight amount of 1+ edema noted to her right foot. patient has a past medical history of hypertension, hyperlipidemia, type 2 diabetes, she is a DNR/DNI, NSTEMI, coronary artery, atrial fibrillation. X-ray ordered to rule out foreign body, versus fracture. Exam(s) XR TIB/FIB RT EXAM: XR TIB/FIB RT CLINICAL HISTORY: Laceration mid Tib Fib, R/O FB or Fracture. TECHNIQUE: 2D digital imaging was performed. COMPARISON: Age-related osteopenia but no evidence of acute fracture. Vascular calcification is noted in the posterior tibial artery. Chondrocalcinosis in the knee joint noted. FINDINGS: No fracture evident Wound care performed by myself and entry level staff accountant, laceration was cleaned with sterile saline, bleeding is controlled at this time with pressure. Three Steri-Strips applied and bulky dressing in place. Instructed patient to keep dressing on for approximately 12 to 24 hours and to return if bleeding reoccurs not relieved by 15 minutes of direct pressure. Discussed rest ice compression elevation, verbalized understanding. Patient was hemodynamically stable alert and oriented at the time of the discharge. This text was generated using [employer] dictation system, please disregard any oddities of phrase or misspellings. HPI General Mode of arrival: wheelchair. Date/Time Provider Initiated Documentation: 01/03/21 12:16. Limitations to Documentation: no limitations. Information obtained by: patient and family. HPI Narrative: 85-year-old female presents to the ER with chief complaint of right lower extremity laceration which occurred just prior to arrival while walking with a walker. They banged it with a walker. There was some mild to moderate bleeding per patient report prior to arrival. Patient is on warfarin. There is approximately 2 x 2 centimeter laceration noted which bleeding is controlled at this time to the lower to there is also a contusion noted proximally to the anterior hernández. Distal sensation movement to the ankle is intact. Cap refill less than 2 seconds. There is slight amount of 1+ edema noted to her right foot. patient has a past medical history of hypertension, hyperlipidemia, type 2 diabetes, she is a DNR/DNI, NSTEMI, coronary artery, atrial fibrillation. Related Data Home Medications Medication Instructions Recorded Confirmed atorvastatin 20 mg PO QAM tab-cap 02/24/15 01/03/21 dofetilide [Tikosyn] 125 mcg PO BID 02/24/15 01/03/21 gabapentin 100 mg PO TID 02/24/15 01/03/21 losartan 100 mg PO QAM tab-cap 02/24/15 01/03/21 prednisone 5 mg PO QAM tab-cap 02/24/15 01/03/21 furosemide 20 mg tablet 10 mg PO QAM 05/22/18 01/03/21 omeprazole 20 mg capsule,delayed 40 mg PO DAILY 05/22/18 01/03/21 release warfarin 2.5 mg tablet 2.5 mg PO HS tab-cap 05/22/18 01/03/21 potassium chloride 10 mEq 20 meq PO BID #360 tab-cap 09/29/18 01/03/21 tablet,extended release magnesium L-lactate 84 mg 252 mg PO BID #180 tab-cap 12/16/18 05/29/20 tablet,extended release metoprolol succinate 50 mg PO QAM 09/09/19 01/03/21 terazosin 2 mg PO BID 09/09/19 01/03/21 acetaminophen 1,000 mg PO Q8H PRN #90 tab 09/17/19 01/03/21 tramadol 25 mg PO DAILY PRN 10/21/20 01/03/21 cephalexin 500 mg PO Q12H #8 tab 10/23/20 Myrbetriq 50 mg PO QAM 01/03/21 01/03/21 Previous Rx's Medication Instructions Recorded potassium chloride 10 mEq 20 meq PO BID #360 tab-cap 09/29/18 tablet,extended release magnesium L-lactate 84 mg 252 mg PO BID #180 tab-cap 12/16/18 tablet,extended release acetaminophen 1,000 mg PO Q8H PRN #90 tab 09/17/19 cephalexin 500 mg PO Q12H #8 tab 10/23/20 Allergies Allergy/AdvReac Type Severity Reaction Status Date / Time propranolol Allergy Intermediate Verified 10/21/20 18:07 codeine Allergy Mild Verified 10/21/20 18:07 metformin Allergy Mild Verified 10/21/20 18:07 Penicillins Allergy Unknown Verified 10/21/20 18:07 DIVINE Inhibitors AdvReac Unknown Verified 10/21/20 18:07 General Stated Complaint: Laceration CAROLE: 3 Review of Systems All systems reviewed & are unremarkable except as noted in HPI and below Integumentary/Breasts Skin/Breast: Reports as per HPI and Reports wounds (Laceration to anterior hernández, Contusion Proximally after Hitting on walker) [facility] Medical History (Updated 01/03/21 @ 13:46 by Diane Mccauley) Adenomatous colon polyp Allergic rhinitis Anticoagulated Atrial fibrillation f/u WITH DR. CASON 09/08/19 Black stools Chronic diarrhea Chronic diarrhea Cystocele with rectocele Deafness in left ear Diabetes mellitus Diverticulosis DNI (do not intubate) DNR (do not resuscitate) Esophageal stricture GERD (gastroesophageal reflux disease) H. pylori infection History of adenomatous polyp of colon Hyperlipidemia Hypertension Lumbar back pain Meningioma Osteoarthritis POLST (Physician Orders for Life-Sustaining Treatment) Polymyalgia rheumatica Rectocele Right hip pain Skin cancer of nose Traumatic wound Ulcer of right leg 04/26/19 referral from Anabelle Cason - injured on sharp piece of wheelchair 3-4 weeks ago. Seen in ER, antibx not finished due to diarrhea. Not healing. 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 Appears stated age. Normal body habitus. Head: Normocephalic, no trauma. Chest: RRR, Normal S1, S2, distal pulses intact. Resp: Lungs clear to auscultation bilaterally, no wheezes, rales, or rhonchi. Musculoskeletal: Unable to assess gait. Sitting in Wheelchair, and uses walker at baseline. Skin: Laceration measuring approximately 1 cm x 2 cm to anterior hernández. There is a contusion proximally to that. Patient does have very paper like skin. She is on blood thinners. 2+ pitting edema noted to her bilateral lower extremities. Blood is controlled upon arrival with a bandage. Capillary refill less than 2 sec. Neurologic: Cranial nerves II-XII intact. Alert and oriented x 3. Hematologic/Lymphatic: no lymphadenopathy. Course Vital Signs Vital signs: Vital Signs Temperature 36.6 C 01/03/21 11:43 Pulse 68 01/03/21 11:43 Respiratory Rate 16 01/03/21 11:43 Blood Pressure 183/83 H 01/03/21 11:43 Pulse Oximetry 97 01/03/21 11:43 Temperature 36.6 C 01/03/21 11:43 Temperature Source Skin 01/03/21 11:43 Pulse 68 01/03/21 11:43 Respiratory Rate 16 01/03/21 11:43 Respiratory Effort 01/03/21 11:51 Blood Pressure 183/83 H 01/03/21 11:43 Blood Pressure Position Sitting 01/03/21 11:43 Pulse Oximetry 97 01/03/21 11:43 Oxygen Delivery Method Room Air 01/03/21 11:43 Oxygen Flow Rate 0 01/03/21 11:43 Pain Level 8 01/03/21 11:43
[2021-01-03] MEDS: Tetanus & Diphtheria Tox,ADULT 0.5 ML VIAL IM (13:46)
== END 2021-01-03 14:00 | disposition home or self-care (01) ==
PROVIDERS: Emergency Provider Registered Nurse Emergency; PCP Family Medicine
DX: S81.811A Laceration without foreign body, right lower leg, initial encounter (principal); W22.8XXA Striking against or struck by other objects, initial encounter; Z79.01 Long term (current) use of anticoagulants
CPT/HCPCS: 90471; 99284; 73590

== ENCOUNTER 2021-01-06 15:49 | Emergency (ER) | payer MEDICARE, SELFPAY ==
[2021-01-06] VITALS (20 sets, daily range): BP systolic 156–183; BP diastolic 66–82; PULSE 63–74; RESP 13–25; TEMP 36.8; O2SAT 94–97
--- NOTE | 2021-01-06 16:15 | DI.CT_ITS ---
Exam(s) CT ABDOMEN PELVIS W EXAM: CT ABDOMEN PELVIS W CLINICAL HISTORY: R sided abd pain, s/p bowel movement TECHNIQUE: Imaging Protocol: Axial computed tomography images with coronal and sagittal reformatted images were created and reviewed CONTRAST MATERIAL: Intravenous: Omnipaque 350 Contrast volume:80 mL Oral: No COMPARISON: CT CT CHEST PE ABD PELVIS W from 10/21/2020 FINDINGS: ABDOMEN: Lung Bases: Atelectasis or scarring in the right lung base. Mild cardiomegaly. Small pericardial ef fusion. Small hiatal hernia. Liver: Normal density. No measurable mass. Portal, Superior Mesenteric, and Splenic Veins: Unremarkable. Gallbladder and Biliary Tract: Status post cholecystectomy. Stable mild intra and extrahepatic bilia ry ductal dilatation likely reflecting the post cholecystectomy state. Pancreas: Normal density, no abnormal calcifications or inflammatory process. Spleen: Normal. Adrenals: No masses seen. Kidneys: Normal size, contour and axis. No radiodense stones or obstructive uropathy. Stable bilatera l renal cysts. No further follow-up is recommended. Abdominal Aorta: Abdominal portion non-dilated. Marked atherosclerosis. Bowel: No evidence of bowel obstruction. There is question of mild thickening of the wall of the dis junior stomach. No evidence of acute appendicitis. Diverticulosis of the colon but no evidence of acut e diverticulitis. Peritoneal Cavity: No ascites, collection or mesenteric inflammatory response. No free air. Lymph Nodes: Within normal limits. Bones: Within normal limits for the patient's age. Degenerative changes in the lumbar spine. Radha meyer has a right total hip replacement which causes artifact in the pelvis. Soft Tissues: There is a fat containing left inguinal hernia. PELVIS: Bladder: No gross abnormality. Portions of the urinary bladder obscured from artifact from the lisa finn's right total hip replacement. Reproductive Organs: The patient appears to be status post hysterectomy. Lymph Nodes: Within normal limits. Bones: Within normal limits for the patient's age. IMPRESSION: 1. Mild thickening of the wall of the posterior stomach which may be due to underdistention. Gastrit is cannot be entirely excluded. Please correlate clinically. 2. No other acute abdominal or pelvic abnormality. RADIATION DOSE DELIVERED: 1,015.12mGy.cm Total DLP DATA REPOSITORY: All CT scans at this facility are submitted to the National Radiology Data Registry (NRDR) Dose Index Registry (DIR) with the [employer] ([employer]). RADIATION OPTIMIZATION: All CT scans at this facility use at least one of these dose optimization te chniques: automated exposure control; mA and/or kV adjustment per patient size (includes targeted exa ms where dose is matched to clinical indication); or iterative reconstruction.
--- NOTE | 2021-01-06 16:18 | ED.GENADUL_ITS ---
Discharge Plan Disposition Patient Disposition: HOME Condition: Improving Discharge Details Clinical Impression: Abdominal pain, Hypomagnesemia Primary Care Provider: Anabelle Cason ED Provider: Natalia Choi Home Meds and New Rx's Prescriptions: Continued furosemide 20 mg tablet 10 mg PO QAM RF: 0 omeprazole 20 mg capsule,delayed release(DR/EC) 40 mg PO DAILY RF: 0 losartan 50 MG tablet 100 mg PO QAM RF: 0 dofetilide [Tikosyn] 125 MCG capsule 125 mcg PO BID RF: 0 prednisone 2.5 MG tablet 5 mg PO QAM RF: 0 gabapentin 100 MG capsule 100 mg PO TID RF: 0 atorvastatin 10 MG tablet 20 mg PO QAM RF: 0 warfarin 2.5 mg tablet 2.5 mg PO HS RF: 0 potassium chloride [Klor-Con 10] 10 mEq tablet extended release 20 meq PO BID Qty: 360 RF: 3 magnesium L-lactate [Magtab] 84 mg tablet extended release 252 mg PO BID Qty: 180 RF: 11 metoprolol succinate 25 mg Tablet Extended Release 24 Hr 50 mg PO QAM RF: 0 terazosin 2 MG capsule 2 mg PO BID RF: 0 acetaminophen 500 mg tablet 1,000 mg PO Q8H PRN (Reason: pain) Qty: 90 RF: 3 Myrbetriq 50 mg tablet extended release 24 hr 50 mg PO QAM RF: 0 tramadol 50 mg tablet 25 mg PO DAILY PRNRF: 0 cephalexin 500 mg tablet 500 mg PO Q12H Qty: 8 RF: 0 Discharge Instructions Instructions: Abdominal Pain (ED), Hypomagnesemia (ED) Additional Instructions: Drink plenty of fluids and get plenty of rest. Alternate tylenol and motrin as needed and directed for pain. Follow-up with your primary care doctor in 1 week. Return to the emergency department with any worsening or new concerning symptoms such as fever, persistent pain, vomiting or any other concerns. Discharge Data Discharge Date/Time-TO BE ENTERED AT DEPARTURE: 01/06/21 18:30 Discharge Physician: Natalia Choi Medical Decision Making 85-year-old female with a history of atrial fibrillation, GERD, hypertension, hyperlipidemia, appendectomy, cholecystectomy presents for right-sided abdominal pain after a large watery bowel movement at home prior to arrival. Blood pressure mildly hypertensive at 170/82. She is afebrile and appears comf ortable and nontoxic. She does have tenderness to palpation to her right upper and right lower quadrants. Her abdomen is otherwise soft without rigidity or guarding. Differential diagnosis includes diverticulitis, colitis, UTI, bowel obstruction, etc. We will place an IV, bolus IV fluids, screening labs, urinalysis, CT abdomen and pelvis. Patient declines any medication for pain. Labs and imaging reviewed. Normal white blood cell count. INR 2.0, on warfarin. Magnesium 1.3, will replete. Troponin negative. Lipase negative. CT notes gastritis in the appropriate clinical setting but no other acute findings. Patient has no complaint of epigastric pain and had no nausea or vomiting so do not suspect gastritis. Urinalysis notes blood but no evidence of other infection. She has been had blood in her urine frequently in the past and she denies any urinary symptoms we will hold on antibiotic treatment for this at this time. Patient reassessed and she still remains pain-free. She feels good to go home. Advised to follow up with the primary care doctor for re-evaluation. Usual and customary return precautions given prior to discharge. Medical Records Medical records reviewed: Yes I reviewed the patient's medical records. Imaging Data Radiologic Study: Radiologist's impression: CT Abdomen And Pelvis With Contrast Exam date and time: 01/06/2021 4:20 PM Age: 85 years old Clinical indication: Abdominal pain; Patient HX: Right sided ab pain, S/P bowel movement TECHNIQUE: Imaging protocol: Computed tomography of the abdomen and pelvis with contrast. Contrast material: OMNIPAUE 350; Contrast volume: 80 ml; Contrast route: INTRAVENOUS (IV); COMPARISON: 1. CT CHEST PE ABD PELVIS W 10/21/2020 7:[address] ABD PELVIS WITH CONTRAST 03/22/2016 9:42:10 AM FINDINGS: Limitations: Evaluation of the pelvis is partially limited by streak artifact from a right hip arthroplasty. Lungs: Scarring/atelectasis at the lung bases without acute findings. Mediastinal space: A small hiatal hernia is present. Liver: Liver is unremarkable. Gallbladder and bile ducts: Prior cholecystectomy. Essentially stable intra and extrahepatic biliary ductal dilation when compared to the examination from 03/22/2016. This is most probably physiologic and related to prior cholecystectomy. Consider correlation with biliary levels and liver enzymes if clinically warranted. Pancreas: Normal. No ductal dilation. Spleen: Normal. No splenomegaly. Adrenal glands: Normal. No mass. Kidneys and ureters: There are multiple simple right renal cysts. Largest right renal cyst measures 2.6 cm. There are multiple simple left renal cysts. Largest left renal cyst measures 4.4 cm. No follow-up for the renal cysts is recommended at this time. The kidneys are otherwise unremarkable. The ureters are normal. Stomach and bowel: There is a hyperdense pill noted in the stomach. There is mild wall thickening to the posterior wall of the stomach on image 22 series 4. No bowel wall thickening, obstruction, or other acute pathology. Diffuse colonic diverticulosis is present. Question of prior right hemicolon surgery. Correlation with history recommended. There is mildly excessive colonic stool content. Appendix: Question of prior appendectomy. Consider correlation with surgical history. Intraperitoneal space: Trace amount of free fluid is suggested in the pelvis, nonspecific. There is no free intraperitoneal air. Vasculature: The vasculature demonstrates diffuse marked atherosclerotic calcification. Lymph nodes: Unremarkable. No enlarged lymph nodes. Urinary bladder: Unremarkable as visualized. Reproductive: There has been a hysterectomy. Bones/joints: Complete right hip arthroplasty without discrete complications. No acute skeletal pathology. Moderate multilevel degenerative changes of the spine, as manifested by multilevel anterior osteophytes and multilevel decrease in intervertebral disc space. Soft tissues: There is a nonobstructing right inguinal hernia. There is a nonobstructing left inguinal hernia. IMPRESSION: 1. Mild wall thickening to the posterior wall of the stomach is most probably related to under distension, however mild gastritis to be entertained in the appropriate clinical setting. 2. No other acute abdominopelvic pathology is otherwise appreciated. 3. Incidental findings as detailed above. Lab Data Lab results reviewed: Yes I reviewed the patient's lab results. Labs: Laboratory Tests Range/Units 01/06/21 01/06/21 01/06/21 16:00 16:00 16:00 WBC (4.4-10.8) 10^3/uL RBC (3.93-5.22) 10^6/uL Hgb (11.2-15.7) g/dL Hct (36.0-46.0) % MCV (80-95) fL MCH (27.0-33.0) pg MCHC (32.0-36.0) % RDW (11.7-14.6) % Plt Count (130-400) 10^3/uL MPV (8.0-11.0) fL Immature Gran % Neutrophils % Lymphocytes % Monocytes % Eosinophils % Basophils % Nucleated RBC % % Absolute Neutrophils (1.2-6.7) 10^3/uL Absolute Lymphocytes (1.2-3.4) 10^3/uL Absolute Monocytes (0.1-0.8) 10^3/uL Absolute Eosinophils (0.0-0.7) 10^3/uL Absolute Basophils (0.0-0.2) 10^3/uL PT (9.3-11.0) sec 19.7 H INR (0.9-1.1) 2.0 H APTT (21.0-27.5) sec 27.4 Sodium (136-145) mmol/L 142 Potassium (3.5-5.1) mmol/L 3.8 Chloride (98-107) mmol/L 108 H Carbon Dioxide (21.0-32.0) mmol/L 30.0 Anion Gap (3-11) mmol/L 4.0 BUN (7-18) mg/dL 14 Creatinine (0.55-1.02) mg/dL 0.8 Estimated GFR/1.73 m2 (mL/min/1.73m2) >= 60.00 Glucose (74-106) mg/dL 128 H Calcium (8.5-10.1) mg/dL 8.4 L Magnesium (1.8-2.4) mg/dL 1.3 L Total Bilirubin (0.2-1.0) mg/dL 0.6 AST (15-37) U/L 18 ALT (14-59) U/L 25 Alkaline Phosphatase (46-116) U/L 68 Troponin I (<0.06) ng/mL < 0.05 Total Protein (6.4-8.2) g/dL 6.0 L Albumin (3.4-5.0) g/dL 3.4 Lipase (73-393) U/L 128 Urine Color (Yellow) Urine Clarity (Clear) Urine pH (5-8) Ur Specific [place] (1.005-1.025) Urine Protein (Negative) mg/dL Urine Ketones (Negative) mg/dL Urine Blood (Negative) Urine Nitrite (Negative) Urine Bilirubin (Negative) Urine Urobilinogen (Up TO 0.2) EU/dL Ur Leukocyte Esterase (Negative) Urine RBC (0-2) HPF Urine WBC (0-5) HPF Ur Epithelial Cells (Negative) HPF Urine Crystals (Negative) HPF Urine Bacteria (Negative) HPF Urine Mucus (Negative) Ur Culture Indicated? Urine Glucose (Negative) mg/dL Range/Units 01/06/21 01/06/21 16:00 17:09 WBC (4.4-10.8) 10^3/uL 8.71 RBC (3.93-5.22) 10^6/uL 4.09 Hgb (11.2-15.7) g/dL 12.8 Hct (36.0-46.0) % 39.7 MCV (80-95) fL 97.1 H MCH (27.0-33.0) pg 31.3 MCHC (32.0-36.0) % 32.2 RDW (11.7-14.6) % 14.9 H Plt Count (130-400) 10^3/uL 259 MPV (8.0-11.0) fL 10.3 Immature Gran % 0.3 Neutrophils % 75.1 Lymphocytes % 18.4 Monocytes % 5.3 Eosinophils % 0.3 Basophils % 0.6 Nucleated RBC % % 0 Absolute Neutrophils (1.2-6.7) 10^3/uL 6.54 Absolute Lymphocytes (1.2-3.4) 10^3/uL 1.60 Absolute Monocytes (0.1-0.8) 10^3/uL 0.46 Absolute Eosinophils (0.0-0.7) 10^3/uL 0.03 Absolute Basophils (0.0-0.2) 10^3/uL 0.05 PT (9.3-11.0) sec INR (0.9-1.1) APTT (21.0-27.5) sec Sodium (136-145) mmol/L Potassium (3.5-5.1) mmol/L Chloride (98-107) mmol/L Carbon Dioxide (21.0-32.0) mmol/L Anion Gap (3-11) mmol/L BUN (7-18) mg/dL Creatinine (0.55-1.02) mg/dL Estimated GFR/1.73 m2 (mL/min/1.73m2) Glucose (74-106) mg/dL Calcium (8.5-10.1) mg/dL Magnesium (1.8-2.4) mg/dL Total Bilirubin (0.2-1.0) mg/dL AST (15-37) U/L ALT (14-59) U/L Alkaline Phosphatase (46-116) U/L Troponin I (<0.06) ng/mL Total Protein (6.4-8.2) g/dL Albumin (3.4-5.0) g/dL Lipase (73-393) U/L Urine Color (Yellow) Yellow Urine Clarity (Clear) Clear Urine pH (5-8) 6.0 Ur Specific [place] (1.005-1.025) 1.015 Urine Protein (Negative) mg/dL Negative Urine Ketones (Negative) mg/dL Negative Urine Blood (Negative) Moderate H Urine Nitrite (Negative) Negative Urine Bilirubin (Negative) Negative Urine Urobilinogen (Up TO 0.2) EU/dL 0.2 Ur Leukocyte Esterase (Negative) Negative Urine RBC (0-2) HPF 5-10 H Urine WBC (0-5) HPF 0-2 Ur Epithelial Cells (Negative) HPF Moderate Urine Crystals (Negative) HPF Negative Urine Bacteria (Negative) HPF Rare Urine Mucus (Negative) Trace Ur Culture Indicated? No Urine Glucose (Negative) mg/dL Negative HPI General Mode of arrival: EMS . Date/Time Provider Initiated Documentation: 01/06/21 16:02 . Limitations to Documentation: no limitations . Information obtained by: patient . HPI Narrative: Patient is a 85-year-old female with a history of atrial fibrillation, GERD, hypertension, hyperlipidemia, appendectomy, cholecystectomy who presents to the ED with complaint of severe abdominal pain noted to the right side of her abdomen that started after a large watery bowel movement at home. Patient states after her bowel movement she laid down and noted right-sided sharp abdominal pain. She states she pressed on the area which improved some of her pain. She called her son who called EMS. She states the pain was 10/10 and after fentanyl per EMS is near resolved. She states she has been feeling fine prior to onset of her pain. She has been eating normally and denies any fever, nausea, vomiting or urinary symptoms. She denies any recent travel, recent antibiotics or sick contacts. Related Data Home Medications Medication Instructions Recorded Confirmed atorvastatin 20 mg PO QAM tab-cap 02/24/15 01/06/21 dofetilide [Tikosyn] 125 mcg PO BID 02/24/15 01/06/21 gabapentin 100 mg PO TID 02/24/15 01/06/21 losartan 100 mg PO QAM tab-cap 02/24/15 01/06/21 prednisone 5 mg PO QAM tab-cap 02/24/15 01/06/21 furosemide 20 mg tablet 10 mg PO QAM 05/22/18 01/06/21 omeprazole 20 mg capsule,delayed 40 mg PO DAILY 05/22/18 01/06/21 release warfarin 2.5 mg tablet 2.5 mg PO HS tab-cap 05/22/18 01/06/21 potassium chloride 10 mEq 20 meq PO BID #360 tab-cap 09/29/18 01/06/21 tablet,extended release magnesium L-lactate 84 mg 252 mg PO BID #180 tab-cap 12/16/18 05/29/20 tablet,extended release metoprolol succinate 50 mg PO QAM 09/09/19 01/06/21 terazosin 2 mg PO BID 09/09/19 01/06/21 acetaminophen 1,000 mg PO Q8H PRN #90 tab 09/17/19 01/06/21 tramadol 25 mg PO DAILY PRN 10/21/20 01/06/21 cephalexin 500 mg PO Q12H #8 tab 10/23/20 Myrbetriq 50 mg PO QAM 01/03/21 01/06/21 Previous Rx's Medication Instructions Recorded potassium chloride 10 mEq 20 meq PO BID #360 tab-cap 09/29/18 tablet,extended release magnesium L-lactate 84 mg 252 mg PO BID #180 tab-cap 12/16/18 tablet,extended release acetaminophen 1,000 mg PO Q8H PRN #90 tab 09/17/19 cephalexin 500 mg PO Q12H #8 tab 10/23/20 Allergies Allergy/AdvReac Type Severity Reaction Status Date / Time propranolol Allergy Intermediate Verified 01/06/21 15:55 codeine Allergy Mild Verified 01/06/21 15:55 metformin Allergy Mild Verified 01/06/21 15:55 Penicillins Allergy Unknown Verified 01/06/21 15:55 DIVINE Inhibitors AdvReac Unknown Verified 01/06/21 15:55 General Stated Complaint: Abd Prob CAROLE: 3 Review of Systems All systems reviewed & are unremarkable except as noted in HPI and below Constitutional Constitutional: Reports as per HPI, Denies chills and Denies fever(s) Eyes Eyes: Denies blurry vision ENT Ears, Nose, Mouth, and Throat: Denies dizziness, Denies sore throat and Denies throat swelling Cardiovascular Cardiovascular: Denies chest pain and Denies dyspnea Respiratory Respiratory: Denies cough and Denies dyspnea Gastrointestinal Gastrointestinal: Reports abdominal pain, Reports diarrhea and Denies vomiting Genitourinary Genitourinary: Denies hematuria and Denies dysuria Musculoskeletal Musculoskeletal: Denies back pain and Denies numbness Integumentary/Breasts Skin/Breast: Denies lesions and Denies rash Neurologic Neurologic: Denies dizziness, Denies localized weakness and Denies numbness Allergic/Immunologic Allergic/Immunologic: Denies throat swelling [facility] Medical History (Updated 01/06/21 @ 18:01 by Natalia Choi DO) Adenomatous colon polyp Allergic rhinitis Anticoagulated Atrial fibrillation f/u WITH DR. CASON 09/08/19 Black stools Chronic diarrhea Chronic diarrhea Cystocele with rectocele Deafness in left ear Diabetes mellitus Diverticulosis DNI (do not intubate) DNR (do not resuscitate) Esophageal stricture GERD (gastroesophageal reflux disease) H. pylori infection History of adenomatous polyp of colon Hyperlipidemia Hypertension Lumbar back pain Meningioma Osteoarthritis POLST (Physician Orders for Life-Sustaining Treatment) Polymyalgia rheumatica Rectocele Right hip pain Skin cancer of nose Traumatic wound Ulcer of right leg 04/26/19 referral from Anabelle Cason - injured on sharp piece of wheelchair 3-4 weeks ago. Seen in ER, antibx not finished due to diarrhea. Not healing. 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) Incision & Drainage, Abscess or Hematoma R leg Social History Smoking/Tobacco Use Status: Never Smoking risk assessment performed?: Yes Alcohol Intake: current Alcohol Intake frequency: holidays/special occasions only Drug use: Never Substance use type: does not use Current gender identity: female Do you feel safe at home: Yes Do you feel safe in your relationship?: Yes Exam Const General: cooperative and no acute distress HENMT Head: normal to inspection Face and sinus: normal facial exam Eyes General: appearance normal, both eyes and all related structures EOM: EOM intact bilaterally Neck Neck: normal visual inspection and No submandibular swelling Lymphatic: no lymphadenopathy noted Chest Chest: normal inspection of the chest and no tenderness Resp Effort & Inspection: normal respiratory effort and able to speak in complete sentences Auscultation: clear to auscultation bilaterally Cardio Rate: regular rate Rhythm: regular rhythm GI Inspection: normal to inspection Palpation: soft, not firm, not rigid and tender in the RLQ and in the RUQ Auscultation: hypoactive bowel sounds Rectal Exam - female: heme negative stool and visual inspection abnormal visual inspection abnormal: hemorrhoids (nonthrombosed) Skin General skin exam: no rashes or lesions noted Neuro General: patient alert, patient awake and patient oriented x3 Cognition: normal cognition Speech: speech normal Motor: muscle tone normal throughout Sensory Exam: no sensory deficits noted Extrem General: normal to inspection, full ROM, capillary refill normal, no calf tenderness bilaterally and no edema Psych Appearance: grossly normal Mental Status: mental status grossly normal Speech and Movement: speech and movement normal Affect: normal affect Course Vital Signs Vital signs: Vital Signs Temperature 98.3 F 01/06/21 15:47 Pulse 74 01/06/21 15:47 Respiratory Rate 20 01/06/21 15:47 Blood Pressure 170/82 H 01/06/21 15:47 Pulse Oximetry 94 01/06/21 15:47 Temperature 98.3 F 01/06/21 15:47 Temperature Source Oral 01/06/21 15:47 Pulse 74 01/06/21 15:47 Respiratory Rate 20 01/06/21 15:47 Respiratory Effort Non-Labored 01/06/21 16:01 Blood Pressure 170/82 H 01/06/21 15:47 Blood Pressure Position Sitting 01/06/21 15:47 Pulse Oximetry 94 01/06/21 15:47 Oxygen Delivery Method Room Air 01/06/21 15:47 Oxygen Flow Rate 0 01/06/21 15:47 Pain Level 4 01/06/21 15:47
[2021-01-06 16:23] LABS: Abs Immature Grans 0.03 10^3/uL (0.0-0.06); Absolute Basophil Count 0.05 10^3/uL (0.0-0.2); Absolute Eosinophil Count 0.03 10^3/uL (0.0-0.7); Absolute Monocyte Count 0.46 10^3/uL (0.1-0.8); Absolute Neutrophil Count 6.54 10^3/uL (1.2-6.7); Basophils % 0.6; Eosinophils % 0.3; HCT 39.7 % (36.0-46.0); HGB 12.8 g/dL (11.2-15.7); Immature Grans % 0.3; Lymphocytes % 18.4; MCH 31.3 pg (27.0-33.0); MCHC 32.2 % (32.0-36.0); MCV 97.1 fL (80-95); MPV 10.3 fL (8.0-11.0); Monocytes % 5.3; Neutrophils % 75.1; Nucleated RBC 0 %; Platelet Count 259 10^3/uL (130-400); RBC 4.09 10^6/uL (3.93-5.22); RDW 14.9 % (11.7-14.6); RDW-SD 53.9 fL; WBC 8.71 10^3/uL (4.4-10.8)
[2021-01-06 16:30] LABS: ALT 25 U/L (14-59); AST 18 U/L (15-37); Albumin 3.4 g/dL (3.4-5.0); Alkaline Phosphatase 68 U/L (46-116); BUN 14 mg/dL (7-18); Bilirubin, Total 0.6 mg/dL (0.2-1.0); CREATININE 0.8 mg/dL (0.55-1.02); Calcium 8.4 mg/dL (8.5-10.1); Chloride 108 mmol/L (98-107); Glucose 128 mg/dL (74-106); Potassium 3.8 mmol/L (3.5-5.1); Sodium 142 mmol/L (136-145)
[2021-01-06 16:31] LABS: Lipase 128 U/L (73-393); Magnesium 1.3 mg/dL (1.8-2.4); PTT Activated 27.4 sec (21.0-27.5); Prothrombin Time 19.7 sec (9.3-11.0)
[2021-01-06 16:32] LABS: Troponin I < 0.05 ng/mL (<0.06)
[2021-01-06] MEDS: Omnipaque 350 MG/ML 100 ML BTL 80 ML IJ (16:57)
[2021-01-06] MEDS: Normal Saline - Diluent 50 ML VIAL IV (16:58)
[2021-01-06] MEDS: Normal Saline Flush 10 ML SYR IVP (16:58)
[2021-01-06] MEDS: MAGNESIUM SULFATE 1 GM/100 ML BAG IVPB (17:17)
--- NOTE | 2021-01-06 17:19 | DI.VRAD_ITS ---
PROCEDURE INFORMATION: Exam: CT Abdomen And Pelvis With Contrast Exam date and time: 01/06/2021 4:20 PM Age: 85 years old Clinical indication: Abdominal pain; Patient HX: Right sided ab pain, S/P bowel movement TECHNIQUE: Imaging protocol: Computed tomography of the abdomen and pelvis with contrast. Contrast material: OMNIPAUE 350; Contrast volume: 80 ml; Contrast route: INTRAVENOUS (IV); COMPARISON: 1. CT CHEST PE ABD PELVIS W 10/21/2020 7:[address] ABD PELVIS WITH CONTRAST 03/22/2016 9:42:10 AM FINDINGS: Limitations: Evaluation of the pelvis is partially limited by streak artifact from a right hip arthroplasty. Lungs: Scarring/atelectasis at the lung bases without acute findings. Mediastinal space: A small hiatal hernia is present. Liver: Liver is unremarkable. Gallbladder and bile ducts: Prior cholecystectomy. Essentially stable intra and extrahepatic biliary ductal dilation when compared to the examination from 03/22/2016. This is most probably physiologic and related to prior cholecystectomy. Consider correlation with biliary levels and liver enzymes if clinically warranted. Pancreas: Normal. No ductal dilation. Spleen: Normal. No splenomegaly. Adrenal glands: Normal. No mass. Kidneys and ureters: There are multiple simple right renal cysts. Largest right renal cyst measures 2.6 cm. There are multiple simple left renal cysts. Largest left renal cyst measures 4.4 cm. No follow-up for the renal cysts is recommended at this time. The kidneys are otherwise unremarkable. The ureters are normal. Stomach and bowel: There is a hyperdense pill noted in the stomach. There is mild wall thickening to the posterior wall of the stomach on image 22 series 4. No bowel wall thickening, obstruction, or other acute pathology. Diffuse colonic diverticulosis is present. Question of prior right hemicolon surgery. Correlation with history recommended. There is mildly excessive colonic stool content. Appendix: Question of prior appendectomy. Consider correlation with surgical history. Intraperitoneal space: Trace amount of free fluid is suggested in the pelvis, nonspecific. There is no free intraperitoneal air. Vasculature: The vasculature demonstrates diffuse marked atherosclerotic calcification. Lymph nodes: Unremarkable. No enlarged lymph nodes. Urinary bladder: Unremarkable as visualized. Reproductive: There has been a hysterectomy. Bones/joints: Complete right hip arthroplasty without discrete complications. No acute skeletal pathology. Moderate multilevel degenerative changes of the spine, as manifested by multilevel anterior osteophytes and multilevel decrease in intervertebral disc space. Soft tissues: There is a nonobstructing right inguinal hernia. There is a nonobstructing left inguinal hernia. IMPRESSION: 1. Mild wall thickening to the posterior wall of the stomach is most probably related to under distension, however mild gastritis to be entertained in the appropriate clinical setting. 2. No other acute abdominopelvic pathology is otherwise appreciated. 3. Incidental findings as detailed above. Dictated and Authenticated by: Erwin Sanchez MD. Ordering:TRICIA Fisher MD
[2021-01-06 17:24] LABS: Bilirubin Negative (Negative); Blood Moderate (Negative); Clarity Clear (Clear); Glucose Negative (Negative); Ketones Negative (Negative); Leukocyte Esterase Negative (Negative); Nitrite Negative (Negative); Specific Gravity 1.015 (1.005-1.025); Urobilinogen 0.2 EU/dL (Up TO 0.2)
[2021-01-06 17:34] LABS: Bacteria Rare HPF (Negative); C & S Indicated? No; Crystals Negative HPF (Negative); Epithelial Cells Moderate HPF (Negative); Mucus Trace (Negative); WBC 0-2 HPF (0-5)
== END 2021-01-06 18:30 | disposition home or self-care (01) ==
PROVIDERS: Emergency Provider Physician Assistant; PCP Family Medicine
DX: R10.11 Right upper quadrant pain (principal); E83.42 Hypomagnesemia
CPT/HCPCS: 36415; 80053; 83690; 96365; 99285; 74177; 81003; 81015; 83735; 84484; 85025; 85610; 85730; 99284; J3475; J3490

== ENCOUNTER → 2021-02-14 09:48 | Outpatient (BNVA) | payer MEDICARE, SELFPAY | PROVIDERS: PCP Family Medicine; Referring Provider Family Medicine; Visit Provider Nurse Practitioner Gerontology | DX: N39.46 Mixed incontinence (principal); Z79.899 Other long term (current) drug therapy | CPT/HCPCS: 99214 ==

== ENCOUNTER 2021-06-04 15:46 | Outpatient (REF) | payer MEDICARE, SELFPAY ==
[2021-06-04 18:31] LABS: Anion Gap 7.8 mmol/L (3-11); BUN 15 mg/dL (7-18); CO2 29.2 mmol/L (21.0-32.0); CREATININE 0.7 mg/dL (0.55-1.02); Calcium 8.2 mg/dL (8.5-10.1); Chloride 109 mmol/L (98-107); Glucose 120 mg/dL (74-106); Magnesium 1.5 mg/dL (1.8-2.4); Potassium 3.9 mmol/L (3.5-5.1); Sodium 146 mmol/L (136-145)
[2021-06-04 18:36] LABS: Hemoglobin A1C 6.4 % (<5.7)
== END 2021-06-04 15:47 | disposition home or self-care (01) ==
LOC: NCHCN 15:46
PROVIDERS: PCP Family Medicine; Visit Provider Family Medicine
DX: E11.9 Type 2 diabetes mellitus without complications (principal); E83.42 Hypomagnesemia
CPT/HCPCS: 80048; 83036; 83735

== ENCOUNTER 2021-06-15 11:33 | Outpatient (REF) | payer MEDICARE, SELFPAY ==
[2021-06-15 16:45] LABS: COMMENT (LAB VIEW ONLY) 48.73 mg/dL; Microalb ug/mg Crea 11.3 ug/mg Cr
[2021-06-15 16:48] LABS: PHOSPHORUS 3.4 mg/dL (2.6-4.7)
[2021-06-15 22:43] LABS: Vitamin D 25 Total 7.5 ng/mL (30-100)
[2021-06-18 10:58] LABS: Parathyroid Hormone,Intact 34 pg/mL (19-88)
== END 2021-06-15 11:34 | disposition home or self-care (01) ==
LOC: NCHCN 11:33
PROVIDERS: PCP Family Medicine; Visit Provider Family Medicine
DX: I10 Essential (primary) hypertension (principal); E83.51 Hypocalcemia; M47.896 Other spondylosis, lumbar region; E11.9 Type 2 diabetes mellitus without complications
CPT/HCPCS: 82306; 82043; 82330; 82570; 83970; 84100

== ENCOUNTER 2021-07-11 15:32 | Emergency (ER) | payer MEDICARE, SELFPAY ==
[2021-07-11 15:45] VITALS: BP 183/88; PULSE 74; RESP 18; TEMP 36.2; O2SAT 99
--- NOTE | 2021-07-11 16:30 | NUR.NOTE ---
Blood draw done as ordered, pt tolerated w/o complaints. Pt reports not knowing her medications but has a list at home and they havent changed recently and she has been taking them as ordered.
[2021-07-11 16:40] LABS: INR 2.4 (0.9-1.1); Prothrombin Time 23.8 sec (9.3-11.0)
--- NOTE | 2021-07-11 16:57 | ED.GENADUL_ITS ---
Discharge Plan Disposition Patient Disposition: HOME Condition: Stable Discharge Details Clinical Impression: Hematoma Primary Care Provider: Anabelle Cason ED Provider: Saji Leyva Home Meds and New Rx's Prescriptions: Continued furosemide 20 mg tablet 10 mg PO QAM RF: 0 omeprazole 20 mg capsule,delayed release(DR/EC) 40 mg PO DAILY RF: 0 Myrbetriq 50 mg tablet extended release 24 hr 50 mg PO DAILY Qty: 90 RF: 3 losartan 50 MG tablet 100 mg PO QAM RF: 0 dofetilide [Tikosyn] 125 MCG capsule 125 mcg PO BID RF: 0 prednisone 2.5 MG tablet 5 mg PO QAM RF: 0 gabapentin 100 MG capsule 100 mg PO TID RF: 0 atorvastatin 10 MG tablet 20 mg PO QAM RF: 0 warfarin 2.5 mg tablet 2.5 - 5 mg PO HS RF: 0 potassium chloride [Klor-Con 10] 10 mEq tablet extended release 20 meq PO BID Qty: 360 RF: 3 metoprolol succinate 25 mg Tablet Extended Release 24 Hr 50 mg PO QAM RF: 0 terazosin 2 MG capsule 2 mg PO BID RF: 0 acetaminophen 500 mg tablet 1,000 mg PO Q8H PRN (Reason: pain) Qty: 90 RF: 3 cholecalciferol (vitamin D3) 1,250 mcg (50,000 unit) capsule 2,000 unit PO DAILY RF: 0 tramadol 50 mg tablet 25 - 50 mg PO DAILY PRNRF: 0 Discharge Instructions Instructions: Hematoma (ED) Additional Instructions: It would appear that you have a hematoma or bruising on your right arm. There appears to be no obvious deformity, bony point tenderness, and your pulse is normal. Your INR is also normal at 2.4. As we discussed, resting, elevating, cool and/or warm compresses every 2 hours for 20 minutes. [id number] Tylenol as directed. Please watch for new or worsening symptoms and return to the ER for any concerns, otherwise contact your primary care provider to discuss your ER visit and potential need for outpatient reevaluation. Medical Decision Making 85-year-old female with history of A. fib, on chronic anticoagulation, awoke ye sterday morning with bruising to her right arm that is slightly uncomfortable. She has not taken any medication for her symptoms. She denies any obvious trauma. No bruising elsewhere on her body. Examination reveals a hematoma, noncircumferential, no evidence of swelling, erythema, warmth. No evidence of petechiae like rash. Given her full range of motion and lack of trauma, I do not believe that an x-ray is indicated. I do believe checking an INR is reasonable. Clinically no evidence of DVT. INR of 2.4. Appropriate level. No need to change her Coumadin dosing. We discussed her laboratory values and clinical findings. Plan is to treat conservatively with cool and/or warm compresses, elevation, [id number] Tylenol. We did discuss that in the area it may still expand, will likely change colors, and be there for a minimum of 2 more weeks. Strict discharge and return precautions provided. Patient without additional questions or concerns and is comfortable with this plan. This documentation was generated using [employer] system, please disregard any oddities of phrase or misspellings. Medical Records Medical records reviewed: Yes I reviewed the patient's medical records. Lab Data Lab results reviewed: Yes I reviewed the patient's lab results. Labs: Laboratory Tests Range/Units 07/11/21 16:25 PT (9.3-11.0) sec 23.8 H INR (0.9-1.1) 2.4 H HPI General Mode of arrival: ambulatory . Date/Time Provider Initiated Documentation: 07/11/21 15:39 . Limitations to Documentation: no limitations . Information obtained by: patient (and friend) . HPI Narrative: This is an 85-year-old female, past medical history that includes A. fib, on chronic anticoagulation, diabetes, GERD, hypertension, osteoarthritis, polymyalgia rheumatica, presenting to the ER for evaluation of bruising to her right upper arm that has now extended past her elbow, first noticed this upon waking yesterday, atraumatic. She has no additional concerns or complaints. Denies any other bruising on her body and admits that she bruises easily. Reports that she has been taking her Coumadin as directed. Reports there is a mild discomfort at the site of the bruise worse with movement. Denies numbness, tingling, weakness. Denies fever, chest pain, shortness of breath. She has not taken any medications for her symptoms nor has she tried any compresses thus far. Related Data Home Medications Medication Instructions Recorded Confirmed atorvastatin 20 mg PO QAM tab-cap 02/24/15 07/11/21 dofetilide [Tikosyn] 125 mcg PO BID 02/24/15 07/11/21 gabapentin 100 mg PO TID 02/24/15 07/11/21 losartan 100 mg PO QAM tab-cap 02/24/15 07/11/21 prednisone 5 mg PO QAM tab-cap 02/24/15 07/11/21 furosemide 20 mg tablet 10 mg PO QAM 05/22/18 07/11/21 omeprazole 20 mg capsule,delayed 40 mg PO DAILY 05/22/18 07/11/21 release warfarin 2.5 mg tablet 2.5 - 5 mg PO HS tab-cap 05/22/18 07/11/21 potassium chloride 10 mEq 20 meq PO BID #360 tab-cap 09/29/18 07/11/21 tablet,extended release metoprolol succinate 50 mg PO QAM 09/09/19 07/11/21 terazosin 2 mg PO BID 09/09/19 07/11/21 acetaminophen 1,000 mg PO Q8H PRN #90 tab 09/17/19 07/11/21 tramadol 25 - 50 mg PO DAILY PRN 10/21/20 07/11/21 mirabegron 50 mg tablet,extended 50 mg PO DAILY #90 tab 02/14/21 07/11/21 release 24 hr cholecalciferol (vitamin D3) 2,000 unit PO DAILY 07/11/21 07/11/21 Previous Rx's Medication Instructions Recorded potassium chloride 10 mEq 20 meq PO BID #360 tab-cap 09/29/18 tablet,extended release acetaminophen 1,000 mg PO Q8H PRN #90 tab 09/17/19 mirabegron 50 mg tablet,extended 50 mg PO DAILY #90 tab 02/14/21 release 24 hr Allergies Allergy/AdvReac Type Severity Reaction Status Date / Time propranolol Allergy Intermediate Verified 01/06/21 15:55 codeine Allergy Mild Verified 01/06/21 15:55 metformin Allergy Mild Verified 01/06/21 15:55 Penicillins Allergy Unknown Verified 01/06/21 15:55 DIVINE Inhibitors AdvReac Unknown Verified 01/06/21 15:55 General Stated Complaint: Vascular CAROLE: 3 Review of Systems All systems reviewed & are unremarkable except as noted in HPI and below Cardiovascular Cardiovascular: Denies chest pain and Denies dyspnea Respiratory Respiratory: Denies dyspnea Integumentary/Breasts Skin/Breast: Denies erythema Hematologic/Lymphatic Hematologic/Lymphatic: Reports easy bleeding and Reports easy bruising [facility] Active Problem List Laceration of right lower leg (Acute) Abdominal pain (Acute) Hypomagnesemia (Acute) Hematoma (Acute) POLST (Physician Orders for Life-Sustaining Treatment) (Acute) DNI (do not intubate) (Acute) DNR (do not resuscitate) (Acute) NSTEMI (non-ST elevated myocardial infarction) (Acute) UTI (urinary tract infection) (Acute) Elevated troponin (Acute) Rhabdomyolysis (Acute) History of total right hip replacement (Acute 09/15/19) Atrial fibrillation (Chronic) Coronary disease (Chronic) Polymyalgia rheumatica (Chronic) Diabetes type 2, controlled (Chronic) Hypertension (Chronic) Hyperlipidemia (Chronic) Diverticulosis (Chronic) Esotropia (Chronic) Esophageal stricture (Chronic) GERD (gastroesophageal reflux disease) (Chronic) Squamous cell skin cancer (Chronic) Cystocele (Chronic) Rectocele (Chronic) Thyroid nodule (Chronic) Tinnitus (Chronic) Obesity (Chronic) H pylori ulcer (Acute) Tinnitus (Acute 04/13/15) Sleep apnea (Acute 05/05/15) Sensorineural hearing loss, bilateral (Acute 04/17/17) Sensorineural hearing loss, asymmetrical (Acute 04/08/14) Sensorineural hearing loss of left ear (Acute 04/18/16) Primary osteoarthritis of left knee (Acute 04/04/17) Paroxysmal atrial fibrillation (Acute 07/14/15) Mixed incontinence urge and stress (Acute 02/07/16) MCI (mild cognitive impairment) with memory loss (Acute 11/07/17) snf current use of antiarrhythmic medical therapy (Acute 07/14/15) 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 CASON 09/08/19 Black stools Chronic diarrhea Chronic diarrhea Cystocele with rectocele Deafness in left ear Diabetes mellitus Diverticulosis Esophageal stricture GERD (gastroesophageal reflux disease) H. pylori infection History of adenomatous polyp of colon Hyperlipidemia Hypertension Lumbar back pain Meningioma Osteoarthritis Polymyalgia rheumatica Rectocele Right hip pain Skin cancer of nose Ulcer of right leg 04/26/19 referral from Anabelle Cason - injured on sharp piece of wheelchair 3-4 weeks ago. Seen in ER, antibx not finished due to diarrhea. Not healing. Urinary incontinence Venous stasis Surgical History Appendectomy Cholecystectomy Colonoscopy - IV Sedation 2013- perforation Incision & Drainage, Abscess or Hematoma R leg Social History Smoking/Tobacco Use Status: Never Smoking risk assessment performed?: Yes Alcohol Intake: current Alcohol Intake frequency: holidays/special occasions only Drug use: Never Substance use type: does not use Current gender identity: female Do you feel safe at home: Yes Do you feel safe in your relationship?: Yes Exam Const General: cooperative, healthy appearing, comfortable and no acute distress Orientation: alert and awake [facility] Head: normal to inspection, normocephalic and atraumatic Eyes General: appearance normal, both eyes and all related structures Conjunctivae: conjunctivae normal Neck Neck: normal visual inspection, trachea midline and supple Resp Effort & Inspection: normal respiratory effort and able to speak in complete sentences Cardio Rate: regular rate Rhythm: abnormal rhythm irregularly irregular Skin Rashes: no rashes Neuro General: patient alert, patient awake, moves all extremities and no focal motor deficits Cognition: normal cognition Speech: speech normal Gait: normal gait Motor: muscle tone normal throughout Sensory Exam: no sensory deficits noted Extrem General: full ROM and capillary refill normal Shoulder/upper arm images: 1. Area of slightly tender ecchymosis which appears to be in various stages of healing. Skin is intact. Full range of motion. No bony point tenderness or deformity. The bruising is noncircumferential. Patient has normal radial pulse and capillary refill. Psych Appearance: grossly normal Mental Status: mental status grossly normal Course Vital Signs Vital signs: Vital Signs Temperature 36.2 C L 07/11/21 15:45 Pulse 74 07/11/21 15:45 Respiratory Rate 18 07/11/21 15:45 Blood Pressure 183/88 H 07/11/21 15:45 Pulse Oximetry 99 07/11/21 15:45 Temperature 36.2 C L 07/11/21 15:45 Temperature Source Skin 07/11/21 15:45 Pulse 74 07/11/21 15:45 Respiratory Rate 18 07/11/21 15:45 Respiratory Effort 07/11/21 15:59 Blood Pressure 183/88 H 07/11/21 15:45 Pulse Oximetry 99 07/11/21 15:45 Oxygen Delivery Method Room Air 07/11/21 15:45 Oxygen Flow Rate 0 07/11/21 15:45 Pain Level 8 07/11/21 15:45 Lab/Test Results Lab/Test Results: Laboratory Tests Range/Units 07/11/21 16:25 PT (9.3-11.0) sec 23.8 H INR (0.9-1.1) 2.4 H
[2021-07-11 17:15] VITALS: BP 131/71; PULSE 80; RESP 16; TEMP 36.2; O2SAT 98
== END 2021-07-11 17:17 | disposition home or self-care (01) ==
PROVIDERS: Emergency Provider Physician Assistant; PCP Family Medicine
DX: S40.021A Contusion of right upper arm, initial encounter (principal); X58.XXXA Exposure to other specified factors, initial encounter
CPT/HCPCS: 36415; 99283; 85610; 99282

== ENCOUNTER 2021-11-08 17:08 | Outpatient (CLI) | payer MEDICARE, SELFPAY ==
[2021-11-08 16:42] LABS: CREATININE 0.9 mg/dL (0.55-1.02); Estimated GFR 59.37 (mL/min/1.73m2)
== END 2021-11-08 17:09 | disposition home or self-care (01) ==
LOC: LBO 17:12
PROVIDERS: PCP Family Medicine; Visit Provider Family Medicine
DX: Z13.89 Encounter for screening for other disorder (principal)
CPT/HCPCS: 36415; 82565

== ENCOUNTER 2021-12-06 18:48 | Outpatient (REF) | payer MEDICARE, SELFPAY ==
[2021-12-06 12:29] LABS: Anion Gap 4.9 mmol/L (3-11); BUN 15 mg/dL (7-18); CO2 32.1 mmol/L (21.0-32.0); CREATININE 0.7 mg/dL (0.55-1.02); Calcium 8.4 mg/dL (8.5-10.1); Chloride 107 mmol/L (98-107); Glucose 132 mg/dL (74-106); Potassium 4.3 mmol/L (3.5-5.1); Sodium 144 mmol/L (136-145)
[2021-12-06 12:34] LABS: HGB 12.4 g/dL (11.2-15.7); MCH 31.2 pg (27.0-33.0); MCV 101 fL (80-95); MPV 10.9 fL (8.0-11.0); Platelet Count 268 10^3/uL (130-400); RBC 3.97 10^6/uL (3.93-5.22); RDW 13.7 % (11.7-14.6); RDW-SD 50.5 fL; WBC 10.93 10^3/uL (4.4-10.8)
[2021-12-06 12:50] LABS: Hemoglobin A1C 6.5 % (<5.7)
[2021-12-06 18:00] LABS: Ionized Calcium 1.07 mmol/L (1.14-1.35)
[2021-12-10 06:12] LABS: Vitamin D 25 Total 66.1 ng/mL (30-100)
== END 2021-12-06 18:49 | disposition home or self-care (01) ==
LOC: NCHCN 18:48
PROVIDERS: PCP Family Medicine; Visit Provider Family Medicine
DX: E11.9 Type 2 diabetes mellitus without complications (principal); E55.9 Vitamin D deficiency, unspecified; I10 Essential (primary) hypertension
CPT/HCPCS: 80048; 82306; 85027; 82330; 83036

== ENCOUNTER 2021-12-07 11:05 | Outpatient (CLI) | payer MEDICARE, SELFPAY ==
[2021-12-07] MEDS: Normal Saline Flush 10 ML SYR IVP (10:20)
[2021-12-07] MEDS: Gadoterate meglumine 20 ML VIAL 12 ML IVP (10:22)
--- NOTE | 2021-12-07 11:05 | DI.MRI_ITS ---
Exam(s) MR CERVICAL SPINE WO/W EXAM: MR CERVICAL SPINE WO/W CLINICAL HISTORY: F/U MENINGIOMA,D32.0 TECHNIQUE: Multiplanar multisequence MRI of the cervical spine was performed before and after intrav enous contrast. 12 milliliters Dotarem IV COMPARISON: MR MR BRAIN WO/W from 11/16/2020 MR MR CERVICAL SPINE WO/W from 11/16/2020 FINDINGS: BONES: Vertebral body heights are maintained. No change reversal of the normal cervical lordosis seco ndary to degenerative changes of the facet joints and degenerative disc changes. Stable retrolisthes is of C4 with respect to C3.. Thoracic scoliosis. Bone marrow signal intensity is within normal li mits. CERVICAL CORD: Craniovertebral junction is unremarkable. The cervical cord is normal size and signal intensity. SOFT TISSUES: Unremarkable. C1-2: Stable size and appearance of circumscribed, homogeneous dural-based enhancing mass to the righ t of the cord. No visible impingement on the cord. No new masses. C2-3: No disc herniation or bulge is identified. C3-4: Mild disc bulging and osteophytes causing mild effacement of the anterior CSF space. C4-5: No disc herniation or bulge is identified. No significant neural foraminal narrowing or centra l canal stenosis. C5-6: Severe loss of disc height and prominent broad-based disc osteophytes causing mild narrowing of the AP dimension of the central canal. Mild bilateral neural foraminal narrowing.. C6-7: Severe loss of disc height and prominent broad-based disc osteophytes causing effacement of the anterior CSF space. Mild bilateral neural foraminal narrowing. C7-T1: No disc herniation or bulge is identified. IMPRESSION: Stable intradural, extramedullary enhancing mass adjacent to the cervical cord at the C2 level. The findings are consistent with a meningioma. Stable degenerative changes. DATA REPOSITORY:
== END 2021-12-07 11:25 ==
PROVIDERS: PCP Family Medicine; Visit Provider Family Medicine
DX: D32.0 Benign neoplasm of cerebral meninges (principal); M47.812 Spondylosis without myelopathy or radiculopathy, cervical region; M48.02 Spinal stenosis, cervical region; M50.322 Other cervical disc degeneration at C5-C6 level; M50.323 Other cervical disc degeneration at C6-C7 level
CPT/HCPCS: 72156

== ENCOUNTER 2021-12-11 21:14 | Emergency (ER) | payer MEDICARE, SELFPAY ==
--- NOTE | 2021-12-11 21:15 | DI.RAD_ITS ---
Exam(s) XR FINGER LT LITTLE EXAM: XR FINGER LT LITTLE CLINICAL HISTORY: distal injury, nail bed. Pain. TECHNIQUE: 2D digital imaging was performed. Three views. COMPARISON: None. FINDINGS: BONES: Fracture at the tuft of the distal phalanx, with mild ventral angulation. No additional fract ures.. No bony destructive lesion is seen. JOINTS: No dislocation present. Advanced degenerative changes of the interphalangeal joints. SOFT TISSUE: Soft tissue defect at the distal phalanx. No foreign body. IMPRESSION: tuft fracture with soft tissue laceration.. DATA REPOSITORY: RADIATION DOSE DELIVERED:
[2021-12-11 21:21] VITALS: BP 181/87; PULSE 61; RESP 18; TEMP 36.3; O2SAT 100
--- NOTE | 2021-12-11 21:27 | ED.GENADUL_ITS ---
Discharge Plan Disposition Patient Disposition: HOME Condition: Improving Discharge Details Clinical Impression: Fracture of finger of left hand Primary Care Provider: Anabelle Domingo ED Provider: Terrell Natarajan Home Meds and New Rx's Prescriptions: New cephalexin 500 mg tablet 500 mg PO BID 5 Days Qty: 10 0RF Continued furosemide 20 mg tablet 10 mg PO QAM 0RF omeprazole 20 mg capsule,delayed release(DR/EC) 40 mg PO DAILY 0RF Myrbetriq 50 mg tablet extended release 24 hr 50 mg PO DAILY Qty: 90 3RF losartan 50 MG tablet 100 mg PO QAM 0RF dofetilide [Tikosyn] 125 MCG capsule 125 mcg PO BID 0RF prednisone 2.5 MG tablet 5 mg PO QAM 0RF gabapentin 100 MG capsule 100 mg PO TID 0RF atorvastatin 10 MG tablet 20 mg PO QAM 0RF warfarin 2.5 mg tablet 2.5 - 5 mg PO HS 0RF Label Comments: 5mg friday 2.5mg all other days potassium chloride [Klor-Con 10] 10 mEq tablet extended release 20 meq PO BID Qty: 360 3RF metoprolol succinate 25 mg Tablet Extended Release 24 Hr 50 mg PO QAM 0RF terazosin 2 MG capsule 2 mg PO BID 0RF Label Comments: HS acetaminophen 500 mg tablet 1,000 mg PO Q8H PRN (Reason: pain) Qty: 90 3RF cholecalciferol (vitamin D3) 1,250 mcg (50,000 unit) capsule 2,000 unit PO DAILY 0RF Label Comments: TAKE 1 CAPSULE BY MOUTH [id number] FOR 12 WEEKS THEN START VITAMIN DAILY 2.000 UNITS DOSE tramadol 50 mg tablet 25 - 50 mg PO DAILY PRN0RF Label Comments: TAKE 1/2 TO 1 TABLET BY MOUTH ONCE DAILY FOR PAIN Discharge Instructions Instructions: Finger Fracture (ED) Additional Instructions: Take antibiotics as prescribed. Leave dressing in place and keep clean and dry until you are seen in orthopedic clinic for recheck. We will refer to orthopedic clinic. The office #[phone]. Please call for an appointment in 2 days if you have not heard from the clinic. Elevate above the level of heart to reduce pain and swelling. May apply ice to reduce discomfort. Return to the ER for any acute concerns. Medical Decision Making 86-year-old female whose finger was slammed in the door of a local restaurant. The left fifth digit has laceration and disruption of nail bed. Referred for x- ray which reveals a comminuted fracture of the distal phalanx tuft of the fifth finger. Wound was irrigated, examined in a bloodless field without evidence of foreign body, the nailbed was sutured in place with a mattress suture and an add itional suture was placed to close the distal laceration on the tip of the finger. The wound was splinted. I will place patient on Keflex. We will have her follow-up in orthopedic clinic for recheck. She is stable and appropriate for discharge at this time HPI General Mode of arrival: ambulatory . Date/Time Provider Initiated Documentation: 12/11/21 21:15 . Limitations to Documentation: no limitations . Information obtained by: patient . History of Present Illness 86 year old F presents to the emergency department with the chief complaint of Left index finger injury after caught in door, described as moderate, Quality is described as dull and constant, and is localized to the left and upper extremity. Patient reports no radiation. Patient started experiencing this minute(s) and it has been constant. improves with No relieving factors improve symptom(s), No exacerbating factors reported . Patient notes no other symptoms.. Patient did receive the following treatments prior to arrival, none Related Data Home Medications Medication Instructions Recorded Confirmed atorvastatin 10 mg tablet 20 mg PO QAM tab-cap 02/24/15 07/11/21 dofetilide 125 mcg capsule 125 mcg PO BID 02/24/15 07/11/21 (Tikosyn) gabapentin 100 mg capsule 100 mg PO TID 02/24/15 07/11/21 losartan 50 mg tablet 100 mg PO QAM tab-cap 02/24/15 07/11/21 prednisone 2.5 mg tablet 5 mg PO QAM tab-cap 02/24/15 07/11/21 furosemide 20 mg tablet 10 mg PO QAM 05/22/18 07/11/21 omeprazole 20 mg capsule,delayed 40 mg PO DAILY 05/22/18 07/11/21 release warfarin 2.5 mg tablet 2.5 - 5 mg PO HS tab-cap 05/22/18 07/11/21 potassium chloride 10 mEq 20 meq PO BID #360 tab-cap 09/29/18 07/11/21 tablet,extended release (Klor-Con) metoprolol succinate 25 mg 50 mg PO QAM 09/09/19 07/11/21 tablet,extended release 24 hr terazosin 2 mg capsule 2 mg PO BID 09/09/19 07/11/21 acetaminophen 500 mg tablet 1,000 mg PO Q8H PRN #90 tab 09/17/19 07/11/21 tramadol 50 mg tablet 25 - 50 mg PO DAILY PRN 10/21/20 07/11/21 mirabegron 50 mg tablet,extended 50 mg PO DAILY #90 tab 02/14/21 07/11/21 release 24 hr (Myrbetriq) cholecalciferol (vitamin D3) 1,250 2,000 unit PO DAILY 07/11/21 07/11/21 mcg (50,000 unit) capsule cephalexin 500 mg tablet 500 mg PO BID 5 Days #10 tab 12/11/21 Previous Rx's Medication Instructions Recorded potassium chloride 10 mEq 20 meq PO BID #360 tab-cap 09/29/18 tablet,extended release (Klor-Con) acetaminophen 500 mg tablet 1,000 mg PO Q8H PRN #90 tab 09/17/19 mirabegron 50 mg tablet,extended 50 mg PO DAILY #90 tab 02/14/21 release 24 hr (Myrbetriq) cephalexin 500 mg tablet 500 mg PO BID 5 Days #10 tab 12/11/21 Allergies Allergy/AdvReac Type Severity Reaction Status Date / Time propranolol Allergy Intermediate Verified 12/11/21 21:30 codeine Allergy Mild Verified 12/11/21 21:30 metformin Allergy Mild Verified 12/11/21 21:30 Penicillins Allergy Unknown Verified 12/11/21 21:30 DIVINE Inhibitors AdvReac Unknown Verified 12/11/21 21:30 General CAROLE: 3 Review of Systems Narrative: Otherwise well. Denies other injury. 6 systems reviewed and otherwise negative PFSH All Active Problems (Updated 12/11/21 @ 22:21 by Terrell Natarajan MD) Laceration of right lower leg (Acute) Abdominal pain (Acute) Hypomagnesemia (Acute) Hematoma (Acute) Fracture of finger of left hand (Acute) POLST (Physician Orders for Life-Sustaining Treatment) (Acute) DNI (do not intubate) (Acute) DNR (do not resuscitate) (Acute) NSTEMI (non-ST elevated myocardial infarction) (Acute) UTI (urinary tract infection) (Acute) Elevated troponin (Acute) Rhabdomyolysis (Acute) History of total right hip replacement (Acute 09/15/19) Atrial fibrillation (Chronic) Paroxysmal; on Coumadin and Multag; about to have evaluation and treated to change her anti-arrhythmic, as her rate has not been controlled. Coronary disease (Chronic) Thallium test in Sep 2012 that showed a small, partially-transient, inferoapical defect, followed by Dr. Kim and Dr. Hoang. Polymyalgia rheumatica (Chronic) Diabetes type 2, controlled (Chronic) Hypertension (Chronic) Hyperlipidemia (Chronic) Diverticulosis (Chronic) With an episode of diverticulitis. Esotropia (Chronic) Esophageal stricture (Chronic) GERD (gastroesophageal reflux disease) (Chronic) Squamous cell skin cancer (Chronic) Cystocele (Chronic) Rectocele (Chronic) Thyroid nodule (Chronic) Tinnitus (Chronic) With some deafness of the left ear as of 2012. Obesity (Chronic) Stage I. 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 DOMINGO 09/08/19 Black stools Chronic diarrhea Chronic diarrhea Cystocele with rectocele Deafness in left ear Diabetes mellitus Diverticulosis Esophageal stricture GERD (gastroesophageal reflux disease) H. pylori infection History of adenomatous polyp of colon Hyperlipidemia Hypertension Lumbar back pain Meningioma Osteoarthritis Polymyalgia rheumatica Rectocele Right hip pain Skin cancer of nose Ulcer of right leg 04/26/19 referral from Anabelle Domingo - injured on sharp piece of wheelchair 3-4 weeks ago. Seen in ER, antibx not finished due to diarrhea. Not healing. Urinary incontinence Venous stasis Surgical History Appendectomy Cholecystectomy Colonoscopy - IV Sedation 2013- perforation Incision & Drainage, Abscess or Hematoma R leg Social History Smoking/Tobacco Use Status: Never Smoking risk assessment performed?: Yes Alcohol Intake: current Alcohol Intake frequency: holidays/special occasions only Drug use: Never Substance use type: does not use Current gender identity: female Do you feel safe at home: Yes Do you feel safe in your relationship?: Yes Exam Narrative Exam Narrative: GEN: awake, alert, oriented 3. Pleasant, well groomed, interactive. HEAD: Normocephalic, atraumatic ENT: Mucous membranes moist, oropharynx unremarkable, External ear exam unremarkable EYES: PERRL, EOMI NECK: Full ROM, no ANA, no menigismus CHEST/RESP: No respiratory distress EXT: Full ROM, sensation intact, left index finger with distal nailbed disruption and laceration to the distal portion. Neuro: Grossly normal neurologic exam, conversant, interactive. Psych: Speech fluent, thoughts congruent, affect normal Procedures Laceration Laceration 1: Site: hand Side (If applicable): left Size (cm): 1 Description: irregular Depth: simple, single layer Local Anesthetic: Lidocaine 1% Pre-repair: wound explored and irrigated extensively Skin layer closed with: other (Prolene) Size (cm): 4-0 Number of sutures: 2
--- NOTE | 2021-12-11 22:09 | DI.VRAD_ITS ---
PROCEDURE INFORMATION: Exam: XR Left Finger(s) Exam date and time: 12/11/2021 9:49 PM Age: 86 years old Clinical indication: Injury or trauma; Other: Shut in door; Crushing; Left; Little finger; Injury date: 12/11/21; Injury details: Distal injury, nail bed pain; Patient HX: Shut finger in door TECHNIQUE: Imaging protocol: XR Left fingers. Views: Minimum 2 views. Total images: 3 COMPARISON: US LEFT EXTREMITY ULTRASOUND 06/24/2016 1:23 PM FINDINGS: Bones/joints: Osteopenia. Fracture of the distal phalangeal tuft of the left 5th finger demonstrating mild apex dorsal angulation and about 1 mm displacement of the distal fragment with suspected mild comminution. Moderate-severe erosive osteoarthritis involving the visualized interphalangeal joints of the 4th and 5th fingers. Soft tissues: Dorsal soft tissue swelling/laceration in the distal 5th finger. No radiopaque foreign body. IMPRESSION: 1. Mildly comminuted/displaced fracture of the distal phalangeal tuft of the 5th finger. 2. Osteopenia and moderate-severe erosive osteoarthritis. 3. Soft tissue laceration/swelling in the distal 5th finger. No foreign body. Dictated and Authenticated by: Chan Garvey MD. Ordering:EDUARDO Tejaad MD
[2021-12-11] MEDS: Cephalexin 500 MG CAP, 2 CAPS/BTL PO (22:37)
[2021-12-11 22:45] VITALS: BP 137/66; PULSE 60; RESP 18; O2SAT 97
== END 2021-12-11 22:45 | disposition home or self-care (01) ==
PROVIDERS: Emergency Provider Emergency Medicine; PCP Family Medicine
DX: S62.667B Nondisplaced fracture of distal phalanx of left little finger, initial encounter for open fracture (principal); W23.0XXA Caught, crushed, jammed, or pinched between moving objects, initial encounter
CPT/HCPCS: 12001; 29130; 99283; 73140

== ENCOUNTER → 2021-12-21 08:48 | Outpatient (BNVA) | payer MEDICARE, SELFPAY | PROVIDERS: PCP Family Medicine; Referring Provider Family Medicine; Visit Provider Physician Assistant | DX: X58.XXXA Exposure to other specified factors, initial encounter (principal); S62.637A Displaced fracture of distal phalanx of left little finger, initial encounter for closed fracture | CPT/HCPCS: 99214 ==

== ENCOUNTER 2022-01-30 13:30 | Outpatient (CLI) | payer MEDICARE, SELFPAY ==
--- NOTE | 2022-01-30 13:15 | DI.RAD_ITS ---
Exam(s) XR HAND LT COMPLETE EXAM: XR HAND LT COMPLETE CLINICAL HISTORY: little finger fx f/u. TECHNIQUE: 2D digital imaging was performed of the left hand. Three views were obtained. AP, later al and oblique views were obtained. COMPARISON: CR,XR XR FINGER LT LITTLE from 12/11/2021 FINDINGS: BONES: There is a nondisplaced fracture of the terminal tuft of the distal phalanx of the left 5th fi nger. The fracture has been reduced with the alignment now near anatomic. No bony destructive lesio n is seen. The bones are osteopenic. JOINTS: No dislocation present. Marked degenerative changes are seen in the hand and wrist. SOFT TISSUE: Normal. IMPRESSION: Fracture of the terminal tuft of the distal phalanx of the left 5th finger. DATA REPOSITORY: RADIATION DOSE DELIVERED:
== END 2022-01-30 13:31 | disposition home or self-care (01) ==
LOC: DIORS 13:31
PROVIDERS: PCP Family Medicine; Referring Provider Family Medicine; Visit Provider Student in an Organized Health Care Education/Training Program
DX: S62.637A Displaced fracture of distal phalanx of left little finger, initial encounter for closed fracture (principal); X58.XXXA Exposure to other specified factors, initial encounter
CPT/HCPCS: 99204; 99214; 73130

== ENCOUNTER → 2022-04-10 12:44 | Outpatient (BNVA) | payer MEDICARE, SELFPAY | PROVIDERS: PCP Family Medicine; Referring Provider Family Medicine; Visit Provider Nurse Practitioner Gerontology | DX: N39.41 Urge incontinence (principal); R39.89 Other symptoms and signs involving the genitourinary system | CPT/HCPCS: 51798; 99214 ==